=== PATIENT | female | born 1960 | race Caucasian/White ===

== ENCOUNTER 2019-10-31 01:48 | Inpatient (IN) | payer MEDICARE, SELFPAY ==
[2019-10-31] VITALS (14 sets, daily range): BP systolic 107–197; BP diastolic 57–80; PULSE 64–96; RESP 16–28; TEMP 36.6–38; O2SAT 94–98; BMI 54.8
--- NOTE | 2019-10-31 01:49 | ED_ITS ---
Entered by Jinny Canales, acting as scribe for Dorian Steven DO HPI - Altered Mental Status General: Chief Complaint: Altered Mental Status Stated Complaint: AMS Time Seen by Provider: 10/31/19 01:49 Source: EMS Mode of arrival: EMS Limitations: no limitations History of Present Illness: HPI narrative: 59 yo f came to the er by [facility] Ems for altered mental status. Onset was tonight. Ems states that she is type 2, altered mental status and had a fever at 103. Ems said that her g stick was 248. MD complaint: altered mental status Timing confirmed by: spouse Severity: moderate Associated symptoms: Reports no associated symptoms Review of Systems General: Reports: ROS unobtainable due to mental status Const: Reports: fever Eyes: Denies: change in vision ENMT: Denies: throat pain Card: Reports: edema; Denies: chest pain Resp: Reports: shortness of breath, productive cough, coughing up blood and chest congestion : Reports: difficulty urinating Neuro: Reports: weakness in extremities, difficulty walking, confusion and behavioral changes PFS ED PFSH: Medical History COPD (chronic obstructive pulmonary disease) Diabetes 1.5, managed as type 2 Reflex sympathetic dystrophy Surgical History H/O: hysterectomy History of cholecystectomy History of thyroidectomy Family History Father No problems noted. Mother Cancer Other Diabetes Social History Smoking and tobacco status: unknown if ever smoked Quit status (tobacco): considering quitting Second hand smoke exposure: Yes Alcohol intake: never History of recent travel: No Physical Exam Const: GENERAL APPEARANCE: well developed ORIENTATION/CONSCIOUSNESS: Yes oriented to person; not oriented to place and not oriented to time HENMT: COMMON NORMALS: normocephalic HEAD & SCALP: normocephalic; no scalp tenderness FACE & SINUS: normal facial exam NOSE: no nasal discharge MOUTH: tongue normal Eye: COMMON NORMALS: PERRL, EOMs intact bilaterally and conjunctivae normal EYELID: eyelids normal CONJUNCTIVA: Yes conjunctivae normal PUPIL: Yes PERRL Neck/C-Spine: COMMON NORMALS: full ROM GENERAL: No tracheal deviation Chest: COMMONS NORMALS: inspection of chest normal CHEST: No tenderness Resp: COMMON NORMALS: clear to auscultation bilaterally EFFORT & INSPECTION: No tachypneic, No respiratory distress, No retractions, No uses accessory muscles and No tracheal deviation AUSCULTATION: clear to auscultation bilaterally, no rhonchi, no wheezes and lung sounds not diminished Cardio: COMMON NORMALS: regular rate and regular rhythm RATE: regular rate RHYTHM: regular rhythm HEART SOUNDS: no murmurs PERIPHERAL PULSES: radial pulses present GI: INSPECTION: No abdominal distension AUSCULTATION: No hyperactive bowel sounds and No hypoactive bowel sounds PALPATION: No guarding and No rigid PERCUSSION: no dullness to percussion and no tympanic to percussion : COMMON NORMALS: Yes no CVA tenderness BLADDER/KIDNEY EXAM: Yes no CVA tenderness Back/Pelvis: COMMON NORMALS: no CVA tenderness Neuro: SENSORIUM/ORIENTATION: Yes oriented to person, No oriented to place and No oriented to time Psych: COMMON NORMALS: negative for mental status grossly normal Skin: COMMON NORMALS: no rashes or lesions noted GENERAL SKIN EXAM: no rashes or lesions noted Course Vital Signs: Vital signs: Vital Signs Temperature 100.4 F H 10/31/19 01:49 Pulse Rate 93 10/31/19 02:25 Respiratory Rate 22 H 10/31/19 02:25 Blood Pressure 108/57 10/31/19 04:14 Pulse Oximetry 94 10/31/19 04:14 MDM - Altered Mental Status MDM Narrative: Medical decision making narrative: 59-year-old female with significant mental status change, she is quite lethargic. She had a fever in route. Temperature is broken now. She is much more alert at this point, and has been up to the bedside commode. Her white blood cell count is 21. She has a left shift. BUN and creatinine are 27 and 1.5 respectively. Her pH on ABG is normal. Oxygen saturations are good. She has a right-sided consolidation on x- ray, likely responsible for the fever and white blood cell count. Lab Data: Labs: Lab Results 10/31/19 10/31/19 10/31/19 Range/Units 02:05 02:05 02:05 WBC 20.8 H (4.0-10.0) 10^3/ uL RBC 5.58 H (4.1-5.3) 10^6/u L Hgb 14.6 (11.5-15.3) g/dL Hct 46.4 (37.0-47.0) % MCV 83.2 (81-99) fL MCH 26.2 L (28.0-34.0) pg MCHC 31.5 (30.0-36.0) g/dL RDW 14.5 (12.1-15.1) % Plt Count 242 (130-400) 10^3/c mm MPV 10.4 (7.4-10.4) fL Neut % (Auto) 87.1 % Lymph % (Auto) 4.6 % [place] % (Auto) 7.1 % Eos % (Auto) 0.3 % Baso % (Auto) 0.4 % Neut # (Auto) 18.1 H (1.8-7.7) 10^3/u L Lymph # (Auto) 1.0 (0.8-4.8) 10^3/u L [place] # (Auto) 1.5 H (0.2-0.9) 10^3/u L Eos # (Auto) 0.1 (0.0-0.8) 10^3/u L Baso # (Auto) 0.1 (0.0-0.1) 10^3/u L Nucleated RBC % (a uto) 0 % Nucleated RBCs # 0.0 /100WBC Specimen Type Sample Site ABG pH (7.35-7.45) ABG pCO2 (35-45) mmHg ABG pO2 (80.0-100.0) mmH g ABG HCO3 (22-26) mmol/L ABG Base Excess (-2.0-2.0) mmol/ L Darrius Test Hematocrit (37-47) % O2 Delivery Device O2 Liters/Min % Choir Member ID Sodium 138 (136-145) mmol/L Potassium 3.7 (3.5-5.1) mmol/L Chloride 101 (98-107) mmol/L Carbon Dioxide 24 (22-29) mmol/L Anion Gap 16.7 (5-19) BUN 27 H (8-23) mg/dL Creatinine 1.5 H (0.5-0.9) mg/dL GFR Calculation 35.4 L (90-130) mL/min Glucose 251 H (65-115) mg/dL Lactate 2.8 H (0.5-2.2) mmol/L Calcium 11.0 H (8.5-10.5) mg/dL Total Bilirubin 0.5 (0.15-1.2) mg/dL AST 21 (0-32) U/L ALT 17 (0-33) U/L Alkaline Phosphata se 135 H (35-105) IU/L Creatine Kinase 93 (26-192) U/L Troponin T Baselin e (0-10) ng/mL Troponin T 120 Min [place] (0-10) ng/mL Delta Troponin T (0-10) ABS# Total Protein 7.3 (6.6-8.7) g/dL Albumin 4.1 (3.5-5.2) g/dL Globulin 3.2 (1.3-4.6) g/dL Influenza Type A A g (Negative) POC Influenza B Ag (Negative) 10/31/19 10/31/19 10/31/19 Range/Units 02:05 02:05 02:30 WBC (4.0-10.0) 10^3/ uL RBC (4.1-5.3) 10^6/u L Hgb (11.5-15.3) g/dL Hct (37.0-47.0) % MCV (81-99) fL MCH (28.0-34.0) pg MCHC (30.0-36.0) g/dL RDW (12.1-15.1) % Plt Count (130-400) 10^3/c mm MPV (7.4-10.4) fL Neut % (Auto) % Lymph % (Auto) % [place] % (Auto) % Eos % (Auto) % Baso % (Auto) % Neut # (Auto) (1.8-7.7) 10^3/u L Lymph # (Auto) (0.8-4.8) 10^3/u L [place] # (Auto) (0.2-0.9) 10^3/u L Eos # (Auto) (0.0-0.8) 10^3/u L Baso # (Auto) (0.0-0.1) 10^3/u L Nucleated RBC % (a uto) % Nucleated RBCs # /100WBC Specimen Type Arterial Sample Site Brachial, left ABG pH 7.35 (7.35-7.45) ABG pCO2 42.5 (35-45) mmHg ABG pO2 57.4 L (80.0-100.0) mmH g ABG HCO3 23.2 (22-26) mmol/L ABG Base Excess -2.6 L (-2.0-2.0) mmol/ L Darrius Test N/a Hematocrit 46.1 (37-47) % O2 Delivery Device Nc O2 Liters/Min 3.0 % Choir Member ID vossa Sodium (136-145) mmol/L Potassium (3.5-5.1) mmol/L Chloride (98-107) mmol/L Carbon Dioxide (22-29) mmol/L Anion Gap (5-19) BUN (8-23) mg/dL Creatinine (0.5-0.9) mg/dL GFR Calculation (90-130) mL/min Glucose (65-115) mg/dL Lactate (0.5-2.2) mmol/L Calcium (8.5-10.5) mg/dL Total Bilirubin (0.15-1.2) mg/dL AST (0-32) U/L ALT (0-33) U/L Alkaline Phosphata se (35-105) IU/L Creatine Kinase (26-192) U/L Troponin T Baselin e 41 H (0-10) ng/mL Troponin T 120 Min [place] (0-10) ng/mL Delta Troponin T (0-10) ABS# Total Protein (6.6-8.7) g/dL Albumin (3.5-5.2) g/dL Globulin (1.3-4.6) g/dL Influenza Type A A g Negative (Negative) POC Influenza B Ag Negative (Negative) 10/31/19 Range/Units 04:20 WBC (4.0-10.0) 10^3/ uL RBC (4.1-5.3) 10^6/u L Hgb (11.5-15.3) g/dL Hct (37.0-47.0) % MCV (81-99) fL MCH (28.0-34.0) pg MCHC (30.0-36.0) g/dL RDW (12.1-15.1) % Plt Count (130-400) 10^3/c mm MPV (7.4-10.4) fL Neut % (Auto) % Lymph % (Auto) % [place] % (Auto) % Eos % (Auto) % Baso % (Auto) % Neut # (Auto) (1.8-7.7) 10^3/u L Lymph # (Auto) (0.8-4.8) 10^3/u L [place] # (Auto) (0.2-0.9) 10^3/u L Eos # (Auto) (0.0-0.8) 10^3/u L Baso # (Auto) (0.0-0.1) 10^3/u L Nucleated RBC % (a uto) % Nucleated RBCs # /100WBC Specimen Type Sample Site ABG pH (7.35-7.45) ABG pCO2 (35-45) mmHg ABG pO2 (80.0-100.0) mmH g ABG HCO3 (22-26) mmol/L ABG Base Excess (-2.0-2.0) mmol/ L Darrius Test Hematocrit (37-47) % O2 Delivery Device O2 Liters/Min % Choir Member ID Sodium (136-145) mmol/L Potassium (3.5-5.1) mmol/L Chloride (98-107) mmol/L Carbon Dioxide (22-29) mmol/L Anion Gap (5-19) BUN (8-23) mg/dL Creatinine (0.5-0.9) mg/dL GFR Calculation (90-130) mL/min Glucose (65-115) mg/dL Lactate (0.5-2.2) mmol/L Calcium (8.5-10.5) mg/dL Total Bilirubin (0.15-1.2) mg/dL AST (0-32) U/L ALT (0-33) U/L Alkaline Phosphata se (35-105) IU/L Creatine Kinase (26-192) U/L Troponin T Baselin e (0-10) ng/mL Troponin T 120 Min [place] 44.86 H (0-10) ng/mL Delta Troponin T 3.86 (0-10) ABS# Total Protein (6.6-8.7) g/dL Albumin (3.5-5.2) g/dL Globulin (1.3-4.6) g/dL Influenza Type A A g (Negative) POC Influenza B Ag (Negative) Critical Care Time Critical Care Time: Critical Care Time: Yes Total Critical Care Time: 40 Attestation: This case had a high probability of a clinically significant, sudden, or life threatening deterioration of this patient's condition which required my full and direct attention, intervention and personal management. Discharge Plan Discharge Condition: Stable Prescriptions: No Action (DME) insulin syringe-needle U-100 [BD SafetyGlide Insulin Syringe] 0.3 mL 31 gauge x 5/16 syringe See Rx Instructions .ROUTE .MEDSUPPLY Qty: 10 RF: 0 bumetanide 2 mg tablet 2 mg PO ONCE RF: 0 topiramate [Topamax] 100 mg tablet 100 mg PO BID RF: 0 Relistor 150 mg tablet 150 mg PO QAM RF: 0 levothyroxine 100 mcg capsule 100 mcg PO ONCE RF: 0 hydroxyzine HCl 25 mg tablet 25 mg PO Q4H PRN (Reason: Allergic Symptoms) RF: 0 Novolin R Regular U-100 Insuln 100 unit/mL solution 60 unit SUBCUT TID Qty: 1 RF: 0 simvastatin 20 mg tablet 20 mg PO ONCE RF: 0 citalopram [Celexa] 40 mg tablet 40 mg PO ONCE RF: 0 omeprazole 40 mg capsule,delayed release(DR/EC) 40 mg PO BID RF: 0 alprazolam [Xanax] 0.25 mg tablet 0.25 mg PO Q6H PRN (Reason: Anxiety) RF: 0 montelukast [Singulair] 10 mg tablet 10 mg PO ONCE RF: 0 prochlorperazine maleate 10 mg capsule, extended release 10 mg PO BID RF: 0 tizanidine [Zanaflex] 4 mg capsule 4 mg PO Q6H PRN (Reason: Muscle Spasm) RF: 0 Tresiba FlexTouch U-200 200 unit/mL (3 mL) insulin pen 200 unit SUBCUT ONCE Qty: 9 RF: 3 albuterol sulfate [Ventolin HFA] 90 mcg/actuation HFA aerosol inhaler 2 puff INHALATION Q4H PRN (Reason: shortness of breath) Qty: 18 RF: 6 aspirin 81 mg Tablet,Delayed Release (Dr/Ec) 81 mg PO BID RF: 0 Dulcolax (bisacodyl) 5 mg Tablet,Delayed Release (Dr/Ec) 5 mg PO DAILY RF: 0 methadone 10 mg tablet 15 mg PO BID RF: 0 Referrals: Donald Bolaños MD [Primary Care Provider] - Coding Level of Care Code ED Log Sorter for Chg Fwd Exam Comprehensive The documentation recorded by the Parker guzmán Stephanie Lyn, accurately reflects the service I personally performed and the decisions made by Maurizio cisse Jeremy John, DO Oct 31, 2019 01:48
--- NOTE | 2019-10-31 01:55 | XR_ITS ---
WS: [id number] XR chest 1V portable [id number] REASON FOR EXAM: ams FINDINGS: The left lung base shows a pneumonia. The heart is borderline enlarged. The remaining lung preciado are well aerated no active infiltrates. There is granulomas throughout both lung preciado. XR/XR chest 1V portable [id number] IMPRESSION: Infiltrate left lung base
--- NOTE | 2019-10-31 01:55 | CTR_ITS ---
PROCEDURE INFORMATION: Exam: CT Head Without Contrast Exam date and time: 10/31/2019 1:58 AM Age: 59 years old Clinical indication: Altered mental status/memory loss; Confusion or disorientation; Additional info: AMS TECHNIQUE: Imaging protocol: Computed tomography of the head without contrast. Total DLP: 1803.07 mGy-cm Radiation optimization: All CT scans at this facility use at least one of these dose optimization techniques: automated exposure control; mA and/or kV adjustment per patient size (includes targeted exams where dose is matched to clinical indication); or iterative reconstruction. COMPARISON: CT head wo con* [id number] 05/10/2019 10:14 PM FINDINGS: Brain: Normal. No hemorrhage. Unremarkable white matter. No mass effect. Ventricles: Normal. No ventriculomegaly. Bones/joints: Unremarkable. No acute fracture. Sinuses: There is mild mucosal thickening seen within the ethmoidal sinuses bilaterally. Mild mucosal thickening is seen within the left maxillary sinus. Mastoid air cells: Visualized mastoid air cells are well aerated. Soft tissues: Unremarkable. CT/CT head wo con* [id number] IMPRESSION: There are no acute intracranial findings. Radiation Dose CTDIVOL = (mGy): DLP = 1803.07 (mGy-cm)
--- NOTE | 2019-10-31 01:57 | ECG_ITS ---
Measurements Intervals [place] Rate: 77 P: 16 [place]: 153 QRS: -10 QRSD: 97 T: 58 QT: 399 QTc: 454 SINUS RHYTHM POSSIBLE ANTERIOR MYOCARDIAL INFARCTION , PROBABLY OLD [30 ms Q WAVE IN V3/V4, OR R < 0.2 mV IN V4] Compared to ECG 05/11/2019 01:15:17 Myocardial infarct finding now present T-wave abnormality no longer present Electronically Signed On 10-31-2019 19:04:22 DEALERSHIP GENERAL MANAGER by Deshawn Parker M.D. [email or web address]
[2019-10-31 02:20] LABS: Basophils # 0.1 10^3/uL (0.0-0.1); Basophils % 0.4 %; Eosinophils # 0.1 10^3/uL (0.0-0.8); Eosinophils % 0.3 %; Hematocrit 46.4 % (37.0-47.0); Hemoglobin 14.6 g/dL (11.5-15.3); Lymphocytes % 4.6 %; Mean Corpuscular HGB Conc 31.5 g/dL (30.0-36.0); Mean Corpuscular Hemoglobin 26.2 pg (28.0-34.0); Mean Corpuscular Volume 83.2 fL (81-99); Mean Platelet Volume 10.4 fL (7.4-10.4); Monocytes # 1.5 10^3/uL (0.2-0.9); Monocytes % 7.1 %; Neutrophils # 18.1 10^3/uL (1.8-7.7); Neutrophils % 87.1 %; Nucleated Red Blood Cells % 0 %; Platelet Count 242 10^3/cmm (130-400); Red Blood Count 5.58 10^6/uL (4.1-5.3); Red Cell Distribution Width 14.5 % (12.1-15.1); White Blood Count 20.8 10^3/uL (4.0-10.0)
[2019-10-31 02:34] LABS: Lactate (Lactic Acid level) 2.8 mmol/L (0.5-2.2)
[2019-10-31 02:35] LABS: Alanine Aminotransferase 17 U/L (0-33); Albumin Level 4.1 g/dL (3.5-5.2); Alkaline Phosphatase 135 IU/L (35-105); Anion Gap 16.7 (5-19); Aspartate Amino Transferase 21 U/L (0-32); Blood Urea Nitrogen 27 mg/dL (8-23); Carbon Dioxide 24 mmol/L (22-29); Chloride 101 mmol/L (98-107); Creatine Phosphokinase 93 U/L (26-192); Globulin 3.2 g/dL (1.3-4.6); Glomerular Filtration Rate 35.4 mL/min (90-130); Glucose 251 mg/dL (65-115); Potassium 3.7 mmol/L (3.5-5.1); Sodium 138 mmol/L (136-145); Total Bilirubin 0.5 mg/dL (0.15-1.2); Total Protein 7.3 g/dL (6.6-8.7)
[2019-10-31 02:37] LABS: Troponin(5th) Baseline 41 ng/mL (0-10)
[2019-10-31 02:42] LABS: ABG PCO2 42.5 mmHg (35-45); ABG PH Result 7.35 (7.35-7.45); Arterial Blood Gas Hematocrit 46.1 % (37-47); Base Excess ABG -2.6 mmol/L (-2.0-2.0); Blood Gas Sample Site Brachial, left; Blood Gas Sample Type Arterial; HCO3 ABG 23.2 mmol/L (22-26); Oxygen Device NC; PO2 ABG 57.4 mmHg (80.0-100.0)
[2019-10-31 02:45] LABS: Influenza A by IFA Negative (Negative); Influenza B by IFA Negative (Negative)
[2019-10-31] MEDS: ondansetron 2 mg/ML SDV 2 mL 4 MG IVP (02:59)
--- NOTE | 2019-10-31 03:57 | ECG_ITS ---
Measurements Intervals [place] Rate: 90 P: 35 [place]: 190 QRS: -8 QRSD: 108 T: 55 QT: 323 QTc: 396 SINUS RHYTHM POSSIBLE ANTERIOR MYOCARDIAL INFARCTION , PROBABLY OLD [30 ms Q WAVE IN V3/V4, OR R < 0.2 mV IN V4] Compared to ECG 05/11/2019 01:15:17 Myocardial infarct finding now present T-wave abnormality no longer present Electronically Signed On 10-31-2019 19:06:05 SHIPPING PACKER by Deshawn Parker M.D. [email or web address]
--- NOTE | 2019-10-31 04:13 | PC.NURSE ---
EKG done at 0410 and shown to ER doctor
--- NOTE | 2019-10-31 04:17 | PM.HP ---
Providers/Chief Complaint Primary Care Provider: Donald Bolaños MD Chief Complaint: AMS History of Present Illness Marion Stuart is a 59 year old female oxygen dependent COPD 2 L at home, CHF, venous stasis dermatitis, peripheral vascular disease, morbid obesity, diabetes, dyslipidemia came in with chief complaint of shortness of breath. Patient is stating that for last couple of days she has been experiencing extreme muscle fatigue, myalgias, expected fever 102, she started experiencing shortness of breath despite using her oxygen. She is smoking 1 pack/day, she is denying any recent sick contacts, she lives home, her does not have similar complaints. She has orthopnea positive, PND, she is wheelchair-bound, previous cardiac cath was normal without any coronary disease. Diagnostics in ER revealed leukocytosis, fever, hypoxia, right middle lobe pneumonia. Her called EMS when she had confusion, she has more drowsiness and was not able to open her eyes. When I interviewed her she was hemodynamically stable, saturating well on 3 L nasal cannula, was able to give me all the details. She was awake alert oriented times Review of Systems Const: Reports: fever, chills, body aches, fatigue and malaise; Denies: change in appetite or change in weight Eyes: Denies: change in vision ENMT: Denies: throat pain Card: Reports: swelling of feet/ankles; Denies: chest pain Resp: Reports: shortness of breath and non-productive cough GI: Denies: abdominal pain, nausea or vomiting : Denies: flank pain or difficulty urinating Musc: Denies: neck pain or back pain Skin/Breast: Reports: rash, chronic lesion, dry skin, stretch morales and nail changes Neuro: Denies: headache Psych: Reports: sleeping more Endo: Denies: excessive urination Justin/Lymph: Denies: easy bruising All/Imm: Denies: hives Medications/Allergies Home Medications Medication Instructions Recorded Confirmed Last Taken Type aspirin 81 mg PO BID 10/31/19 10/31/19 Unknown History bisacodyl [Dulcolax (bisacodyl)] 5 mg PO DAILY 10/31/19 10/31/19 Unknown History methadone 15 mg PO BID 10/31/19 10/31/19 Unknown History Allergies Allergy/AdvReac Type Severity Reaction Status Date / Time doxycycline Allergy Mild unknown Verified 10/08/19 14:20 adhesive tape Allergy RASH Verified 10/08/19 14:20 erythromycin base Allergy Unknown Verified 10/08/19 14:20 furosemide [From Lasix] Allergy LASIX Verified 10/08/19 14:20 gabapentin Allergy UNKNOWN Verified 10/08/19 14:20 hydrochlorothiazide Allergy Unknown Verified 10/08/19 14:20 insulin glargine Allergy UNKNOWN Verified 10/08/19 14:20 [From Lantus U-100 Insulin] Iodinated Contrast Media Allergy Unknown Verified 10/08/19 14:20 lamotrigine [From Lamictal] Allergy Unknown Verified 10/08/19 14:20 nortriptyline Allergy Unknown Verified 10/08/19 14:20 oxcarbazepine Allergy UNKNOWN Verified 10/08/19 14:20 Penicillins Allergy Unknown Verified 10/08/19 14:20 polyethylene glycol Allergy Unknown Verified 09/02/19 16:07 [From Golytely] polyethylene glycol 3350 Allergy Unknown Verified 09/02/19 16:07 [From Golytely] potassium chloride Allergy Unknown Verified 09/02/19 16:07 [From Golytely] sodium [From Golytely] Allergy Unknown Verified 09/02/19 16:07 sodium bicarbonate Allergy Unknown Verified 09/02/19 16:07 [From Golytely] sodium chloride Allergy Unknown Verified 09/02/19 16:07 [From Golytely] sodium sulfate Allergy Unknown Verified 09/02/19 16:07 [From Golytely] PFSH Acute PFSH: Medical History (Updated 10/31/19 @ 05:05 by Deshawn Lawson MD) Cataract COPD (chronic obstructive pulmonary disease) Diabetes 1.5, managed as type 2 Diabetic neuropathy Glaucoma Morbid obesity Neuropathy Peripheral vascular disease Reflex sympathetic dystrophy Smoker Venous stasis dermatitis Surgical History H/O: hysterectomy History of cholecystectomy History of thyroidectomy Family History Father No problems noted. Mother Cancer Other Diabetes Social History (Updated 10/31/19 @ 04:59 by Deshawn Lawson MD) Smoking and tobacco status: current every day smoker cigarettes Packs smoked per day: 1 Years cigarettes smoked: 45 Quit status (tobacco): considering quitting Second hand smoke exposure: Yes Alcohol intake: never History of recent travel: No Vitals/I&O/Wt Last Vital Signs Temp 100.4 F H 10/31/19 01:49 Pulse 93 10/31/19 02:25 Resp 22 H 10/31/19 02:25 BP 184/80 10/31/19 02:25 Pulse Ox 96 10/31/19 01:49 Weight last 48 hrs Weight 154.221 kg Physical Exam Narrative: EXAM NARRATIVE: Morbidly obese female sitting comfortable in her bed without any active respiratory distress, saturating well on 3 to nasal cannula Cushingoid appearance Morbid obesity Bilateral breath sounds without adventitious sounds or wheezing however bronchial breathing right lung base Abdomen soft, distended, with obesity, not able to palpate organomegaly Abdominal pannus with moisture without any cellulitis Lower extremity venous stasis dermatitis, 3+ pitting edema bilaterally Dry skin Onychomycosis, unkempt appearance, poor hygiene Appropriate mood and affect Neurologically nonfocal exam she is awake alert oriented x3 Mild hyperemic conjunctivo- Data : 10/31/19 02:05 10/31/19 02:05 Micro: Microbiology 10/31/19 02:08 Blood Culture - Preliminary Blood SPECIMEN COLLECTED 10/31/19 02:05 Blood Culture - Preliminary Blood SPECIMEN COLLECTED A&P Assessment and plan (1) COPD (chronic obstructive pulmonary disease): Status: Acute Qualifiers: COPD type: emphysema Emphysema type: panlobular Qualified Code(s): J43.1 - Panlobular emphysema Code(s): J44.9 - Chronic obstructive pulmonary disease, unspecified (2) Hypoxia: Status: Acute Code(s): R09.02 - Hypoxemia (3) Community acquired pneumonia: Status: Acute Code(s): J18.9 - Pneumonia, unspecified organism (4) Sepsis: Status: Acute Code(s): A41.9 - Sepsis, unspecified organism Additional A&P Information Acute on chronic hypoxic respiratory failure secondary to community-acquired pneumonia Most likely bacterial right middle lobe pneumonia we will treat her with ceftriaxone and azithromycin Urine antigens Blood culture, sputum culture Patient is currently smoking, spent good amount of time in counseling, patient is not ready to quit Currently asking for nicotine patch Sepsis secondary to pneumonia: Judicious use of fluids, She looks fluid overloaded, will need diuretics, hemodynamically currently stable, antibiotics, Diabetic neuropathy: She is scheduled to see Dr. Rodgers on Saturday Diabetic diet, because of her regular insulin usage 3 times a day I would use low-dose insulin sliding scale ^ Glaucoma and cataract: She has scheduled ocular surgeries on Saturday Chronic kidney disease: Creatinine at baseline, Anticipating improvement with diuresis Venous stasis dermatitis: No active signs of gangrene or ulcer Chronic opiate dependence: Continue methadone currently she is on 10 mg twice a day Denies constipation Full code DVT prophylaxis: Heparin Attestations Medical Necessity Statement*: Anticipating her stay to cross more than 2 midnights because of sepsis and community-acquired pneumonia, Time Spent in Patient Care: 40 Coding Level of Care Code Acute Process Treater for [facility] Fwd Diagnoses COPD (chronic obstructive pulmonary disease) J43.1 COPD type: emphysema Emphysema type: panlobular Hypoxia R09.02 Community acquired pneumonia J18.9 Sepsis A41.9
[2019-10-31 04:39] LABS: Troponin 5 2HR 44.86 ng/mL (0-10); Troponin 5 2HR Delta 3.86 ABS# (0-10)
[2019-10-31] MEDS: levofloxacin-dextrose 5 % 750 MG/150 ML PREMIX 150 MG IV (05:01)
[2019-10-31] MEDS: sodium chloride 0.9% 1,000 ML 999 ML IV (05:01)
--- NOTE | 2019-10-31 05:02 | PC.NURSE ---
UA collected and sent to lab
[2019-10-31 05:11] LABS: Add Urine Culture? Yes; Add Urine Microscopic? YES; Bacteria Urine 4+; Bilirubin Urine Neg (NEGATIVE); Blood Urine Neg (Negative); Glucose Urine UA Norm (Normal); Ketones Urine Negative (Negative); Leukocyte Esterase Urine Negative (Negative); Nitrate Urine Positive (Negative); Protein Urine Neg (Negative); RBC Urine 0-4 /hpf (0-2); Squamous Epithelial Cell Urine 0-4 (0-5); Urine Appearance Cloudy (CLEAR); Urine Color Yellow (Yellow); Urobilinogen Urine Norm (Negative); WBC Urine 25-40 /hpf (0-5); pH Urine 7 (5-7)
--- NOTE | 2019-10-31 05:20 | PC.NURSE ---
Report called to Jinny OWENS, patient to be transferred to floor 252-2.
--- NOTE | 2019-10-31 06:00 | PC.NURSE ---
Patient taken to floor in stable condition.
[2019-10-31] MEDS: nicotine 21 mg Patch 1 PATCH TRANSDERMA (06:40)
[2019-10-31 06:47] LABS: Glucose Point of Care 206 mg/dL (70-110)
[2019-10-31] MEDS: atorvastatin 40 mg Tablet 20 MG PO (08:26)
[2019-10-31] MEDS: aspirin 81 mg EC Tablet PO ×2 (08:26→20:58)
[2019-10-31] MEDS: azithromycin 250 mg Tablet PO (08:26)
[2019-10-31] MEDS: bumetanide 1 mg Tablet 2 MG PO (08:26)
[2019-10-31] MEDS: levothyroxine 100 mcg Tablet PO (08:26)
[2019-10-31] MEDS: pantoprazole DR 40 mg Tablet PO ×2 (08:27→17:16)
[2019-10-31] MEDS: methadone 10 mg Tablet PO ×2 (08:27→17:16)
[2019-10-31] MEDS: topiramate 100 mg Tablet 50 MG PO ×2 (08:28→17:16)
[2019-10-31] MEDS: cefTRIAXone 1,000 MG in sodium chloride 0.9% (plus) 50 ML 100 MG IV (08:29)
[2019-10-31] MEDS: heparin 5,000 unit/mL INJ 1 mL 5000 UNIT SUBCUT ×2 (08:29→15:46)
[2019-10-31 08:46] LABS: Troponin 5 6HR 40.77 ng/mL (0-10); Troponin 5 6HR Delta -0.23 ng/L (0-12)
[2019-10-31] MEDS: ipratropium-albuterol 3 mL Neb INHALATION ×2 (09:09→14:54)
[2019-10-31 11:29] LABS: Glucose Point of Care 235 mg/dL (70-110)
[2019-10-31] MEDS: ketorolac 0.5% Op 5 mL Btl 1 DROP EYE-BOTH (12:52)
[2019-10-31] MEDS: prednisoLONE 1% Op Susp 5 mL Btl 1 DROP EYE-BOTH ×3 (12:52→20:58)
--- NOTE | 2019-10-31 13:09 | PC.CHAP ---
Pastoral Care Encounter/Spiritual Assessment Type of Contact [] Declined athletic field custodian visit [] Patient/Family/Request visit [] Outpatient visit [] Follow-up visit [] Physician referral [] Code/Alert [X] Routine visit [] Staff referral [] Actively dying [] Patient sleeping [] Family support [] [] Out of room [] Palliative care [] [] Receiving care in room [] Pre-surgical visit [] Trauma [] Long length of stay [] ICU visit [] Other: Relational/Emotional Strength [] Patient feels connected with others/family/visitors/staff [] Distress [] Loneliness/isolation [] Abandonment Spirituality of Patient [] Person of Martine [] Attends Spiritism of their Martine [] Believes in Prayer [] Reads Bible or Druze materials [] There are Spiritual issues to be addressed Form Builder Helper Interventions [] Prayer [] Active listening [] Non-anxious presence [] Spiritual/emotional support [] Crisis/trauma care [] Spiritual counseling [] Bereavement support [] Provided bereavement packet [] Provided Bible/devotional materials [] Provided toy/stuffed animal, coloring book to patient or family member [] Provided Communion [] Anointing/[place] [] Salvation [] Completed spiritual assessment [] Other: Impact on Illness or Injury [] Angry [] Fearful [] Anxious [] Often cries [] Exhaustion [] Unable to work [] Unable to attend hindu [] Unable to walk/stand [] Unable to read [] Unable to drive [] Unable to eat/drink [] Unable to sleep [] Unable to be with family [] Patient intubated [] Other: Summary Time spent with patient
--- NOTE | 2019-10-31 15:33 | CTR_ITS ---
PROCEDURE INFORMATION: Exam: CT Lumbar Spine Without Contrast Exam date and time: 10/31/2019 5:27 PM Age: 59 years old Clinical indication: Low back pain; Additional info: Suspet vertebral fracture TECHNIQUE: Imaging protocol: Computed tomography images of the lumbar spine without contrast. Total DLP: 2106.33 mGy-cm Radiation optimization: All CT scans at this facility use at least one of these dose optimization techniques: automated exposure control; mA and/or kV adjustment per patient size (includes targeted exams where dose is matched to clinical indication); or iterative reconstruction. COMPARISON: [place] [id number] 08/20/2016 5:13 PM FINDINGS: Vertebrae: No visible fracture, subluxation, or dislocation. No visible traumatic spondylolysis or spondylolisthesis. Mild levoscoliosis. Discs/Spinal canal/Neural foramina: Degenerative disease and degenerative disc disease with vacuum disc phenomenon and moderate disc space height loss L3/L4. Moderate central canal stenosis L3/L4 primarily secondary to facet arthrosis and ligamentum flavum hypertrophy aggravated by a mild posterior annular disc bulge. Advanced degenerative disc disease with disc space height loss and vacuum disc phenomenon and associated spondylosis deformans T12/L1. Moderate facet arthrosis L4/L5 and L5/S1. Mild left paramedian focal annular disc bulge L2/L3 which may efface the exiting left L2 nerve root. Vasculature: The abdominal aorta, where visualized, is nonaneurysmal. Moderate arterial sclerotic disease. Soft tissues: Unremarkable. Other findings: Heavy body habitus. This increases quantum mottle artifact. CT/CT lumbar spine wo con* [id number] IMPRESSION: 1. No visible fracture, subluxation, or dislocation. 2. Moderate central canal stenosis primarily secondary to facet arthrosis and ligamentum flavum hypertrophy L3/L4. 3. Mild left paramedian focal annular disc bulge L2/L3 which may efface the exiting left L2 nerve root. 4. Facet arthrosis. 5. Degenerative disc disease with vacuum disc phenomenon at T12/L1 and L3/L4. 6. Mild levoscoliosis. Radiation Dose CTDIVOL = (mGy): DLP = 2106.33 (mGy-cm)
[2019-10-31] MEDS: tizanidine 4 mg Tablet PO (15:46)
[2019-10-31 16:55] LABS: Glucose Point of Care 189 mg/dL (70-110)
--- NOTE | 2019-10-31 18:38 | PM.PN ---
Subjective Subjective: Interval history: Overnight labs and H&P reviewed. Does not complain any complaints of chest pain or dyspnea. She does report that this morning she developed bilateral lower extremity paresthesias and has had heaviness in bilateral legs which is made it difficult to move her legs. She endorses a history of multiple level degeneration in her cervical and lumbar spine. No bowel or urinary incontinence. Medications: Reviewed: Yes Vitals/I&O/Wt Last Vital Signs Temp 98.8 F 10/31/19 15:13 Pulse 68 10/31/19 15:13 Resp 16 10/31/19 15:13 BP 107/71 10/31/19 15:13 Pulse Ox 98 10/31/19 15:13 10/31/19 10/31/19 10/31/19 06:59 14:59 22:59 Intake Total 360 / 360 240 / 600 Output Total 500 / 500 Balance -140 / -140 240 / 100 Weight last 48 hrs Weight 154.221 kg Physical Exam Narrative: EXAM NARRATIVE: GEN: Awake, alert and oriented, no acute distress CVS: S1S2 N RS: CTA B/L Abd: Soft, nt/nd , bs+ BOTANY TECHNICIAN: no focal motor neuro deficits. Lower extremity strength 5 out of 5. Patient complains of paresthesias worsened with minimal movement. Data : 10/31/19 02:05 10/31/19 02:05 Micro: Microbiology 10/31/19 02:08 Blood Culture - Preliminary Blood SPECIMEN COLLECTED 10/31/19 02:05 Blood Culture - Preliminary Blood SPECIMEN COLLECTED A&P Assessment and plan (1) Sepsis: Status: Acute Code(s): A41.9 - Sepsis, unspecified organism (2) Community acquired pneumonia: Status: Acute Code(s): J18.9 - Pneumonia, unspecified organism (3) Hypoxia: Status: Acute Code(s): R09.02 - Hypoxemia (4) Reflex sympathetic dystrophy: Status: Acute Code(s): G90.50 - Complex regional pain syndrome I, unspecified (5) Diabetes 1.5, managed as type 2: Status: Acute Code(s): E13.9 - Other specified diabetes mellitus without complications (6) COPD (chronic obstructive pulmonary disease): Status: Acute Qualifiers: COPD type: emphysema Emphysema type: panlobular Qualified Code(s): J43.1 - Panlobular emphysema Code(s): J44.9 - Chronic obstructive pulmonary disease, unspecified Additional A&P Information Acute on chronic hypoxic respiratory failure secondary to community-acquired pneumonia Continue ceftriaxone and azithromycin Pending bacterial antigen and Legionella antigen. Sepsis secondary to pneumonia Diabetic neuropathy: She is scheduled to see Dr. Rodgers on Saturday Diabetic diet, patient requesting to use her home Tresiba which has been initiated. Rest continue sliding scale insulin. Of note she uses regular insulin Tresiba at home. Glaucoma and cataract: She has scheduled ocular surgeries on Saturday Chronic kidney disease: Creatinine at baseline, Anticipating improvement with diuresis Venous stasis dermatitis: No active signs of gangrene or ulcer Chronic opiate dependence: Continue methadone currently she is on 10 mg twice a day Denies constipation Full code DVT prophylaxis: Heparin Attestations Medical Necessity Statement*: Inpatient management for community-acquired pneumonia, need for IV antibiotics Coding Level of Care Code Acute Burning Machine Operator for [facility] Fwd Diagnoses Sepsis A41.9 Community acquired pneumonia J18.9 Hypoxia R09.02 Reflex sympathetic dystrophy G90.50 Diabetes 1.5, managed as type 2 E13.9 COPD (chronic obstructive pulmonary disease) J43.1 COPD type: emphysema Emphysema type: panlobular
[2019-10-31 21:15] LABS: Glucose Point of Care 133 mg/dL (70-110)
[2019-10-31 23:45] LABS: Glucose Point of Care 98 mg/dL (70-110)
[2019-11-01] VITALS (8 sets, daily range): BP systolic 126–156; BP diastolic 66–84; PULSE 72–93; RESP 18–20; TEMP 36.8–37.3; O2SAT 86–97
[2019-11-01] MEDS: heparin 5,000 unit/mL INJ 1 mL 5000 UNIT SUBCUT ×2 (00:59→08:30)
[2019-11-01 05:56] LABS: Basophils % 0.3 %; Eosinophils # 0.2 10^3/uL (0.0-0.8); Eosinophils % 1.8 %; Hematocrit 40.9 % (37.0-47.0); Hemoglobin 12.6 g/dL (11.5-15.3); Lymphocytes # 1.4 10^3/uL (0.8-4.8); Lymphocytes % 10.5 %; Mean Corpuscular HGB Conc 30.8 g/dL (30.0-36.0); Mean Corpuscular Volume 84.3 fL (81-99); Mean Platelet Volume 10.7 fL (7.4-10.4); Monocytes % 7.6 %; Neutrophils # 10.6 10^3/uL (1.8-7.7); Neutrophils % 79.4 %; Nucleated Red Blood Cells % 0 %; Platelet Count 216 10^3/cmm (130-400); Red Blood Count 4.85 10^6/uL (4.1-5.3); Red Cell Distribution Width 14.9 % (12.1-15.1); White Blood Count 13.3 10^3/uL (4.0-10.0)
[2019-11-01 06:13] LABS: Alanine Aminotransferase 16 U/L (0-33); Albumin Level 3.7 g/dL (3.5-5.2); Alkaline Phosphatase 96 IU/L (35-105); Anion Gap 14.6 (5-19); Aspartate Amino Transferase 17 U/L (0-32); Blood Urea Nitrogen 27 mg/dL (8-23); Calcium 10.5 mg/dL (8.5-10.5); Carbon Dioxide 27 mmol/L (22-29); Chloride 99 mmol/L (98-107); Glomerular Filtration Rate 28.7 mL/min (90-130); Glucose 156 mg/dL (65-115); Potassium 3.6 mmol/L (3.5-5.1); Sodium 137 mmol/L (136-145); Total Bilirubin 0.4 mg/dL (0.15-1.2); Total Protein 6.7 g/dL (6.6-8.7)
[2019-11-01 06:36] LABS: Glucose Point of Care 149 mg/dL (70-110)
[2019-11-01] MEDS: bumetanide 1 mg Tablet 2 MG PO (08:30)
[2019-11-01] MEDS: levothyroxine 100 mcg Tablet PO (08:30)
[2019-11-01] MEDS: citalopram 20 mg Tablet 40 MG PO (08:30)
[2019-11-01] MEDS: bisacodyl 5 mg Tablet PO (08:30)
[2019-11-01] MEDS: azithromycin 250 mg Tablet PO (08:30)
[2019-11-01] MEDS: methadone 10 mg Tablet PO (08:30)
[2019-11-01] MEDS: pantoprazole DR 40 mg Tablet PO (08:30)
[2019-11-01] MEDS: aspirin 81 mg EC Tablet PO (08:30)
[2019-11-01] MEDS: topiramate 100 mg Tablet 50 MG PO (08:31)
[2019-11-01] MEDS: atorvastatin 40 mg Tablet 20 MG PO (08:31)
[2019-11-01] MEDS: cefTRIAXone 1,000 MG in sodium chloride 0.9% (plus) 50 ML 100 MG IV (08:32)
[2019-11-01] MEDS: prednisoLONE 1% Op Susp 5 mL Btl 1 DROP EYE-BOTH ×2 (08:36→12:09)
[2019-11-01] MEDS: ipratropium-albuterol 3 mL Neb INHALATION (09:43)
[2019-11-01 11:48] LABS: Glucose Point of Care 208 mg/dL (70-110)
--- NOTE | 2019-11-01 12:04 | PC.CHAP ---
Pastoral Care Encounter/Spiritual Assessment Type of Contact [] Declined signals intelligence analysis manager visit [] Patient/Family/Request visit [] Outpatient visit [] Follow-up visit [] Physician referral [] Code/Alert [] Routine visit [] Staff referral [] Actively dying [] Patient sleeping [] Family support [] [] Out of room [] Palliative care [] [] Receiving care in room [] Pre-surgical visit [] Trauma [] Long length of stay [] ICU visit [] Other: Relational/Emotional Strength [x] Patient feels connected with others/family/visitors/staff [] Distress [] Loneliness/isolation [] Abandonment Spirituality of Patient [x] Person of Martine [x] Attends Yazidi of their Martine [x] Believes in Prayer [] Reads Bible or Jew materials [] There are Spiritual issues to be addressed Mussel Opener Interventions [x] Prayer [x] Active listening [x] Non-anxious presence [x] Spiritual/emotional support [] Crisis/trauma care [] Spiritual counseling [] Bereavement support [] Provided bereavement packet [] Provided Bible/devotional materials [] Provided toy/stuffed animal, coloring book to patient or family member [] Provided Communion [] Anointing/[place] [] Salvation [x] Completed spiritual assessment [] Other: Impact on Illness or Injury [] Angry [] Fearful [] Anxious [] Often cries [] Exhaustion [] Unable to work [] Unable to attend judaism [] Unable to walk/stand [] Unable to read [] Unable to drive [] Unable to eat/drink [] Unable to sleep [] Unable to be with family [] Patient intubated [] Other: Summary Chaplains prayed with patient. Time spent with patient 15 minutes.
--- NOTE | 2019-11-01 13:50 | P.DS_ITS ---
Discharge Providers Date of Admission: 10/31/19 04:14 Date of Discharge: November 01, 2019 Attending Provider at Admission: Deshawn Lawson MD Attending Provider at Discharge: Qing Muhammad MD Primary Care Provider: Donald Bolaños MD Diagnoses at Discharge Discharge Diagnosis (1) Sepsis: Status: Acute (2) Community acquired pneumonia: Status: Acute (3) Hypoxia: Status: Acute (4) Reflex sympathetic dystrophy: Status: Acute (5) Diabetes 1.5, managed as type 2: Status: Acute (6) COPD (chronic obstructive pulmonary disease): Status: Acute Qualifiers: COPD type: emphysema Emphysema type: panlobular Qualified Code(s): J43.1 - Panlobular emphysema Reason for Visit Reason for Visit: Reason For Visit: AMS Hospital Course Discharge Summary: Marion Stuart is a 59 year old female oxygen dependent COPD 2 L at home, CHF, venous stasis dermatitis, peripheral vascular disease, morbid obesity, diabetes, dyslipidemia came in with chief complaint of shortness of breath. Patient is stating that for last couple of days she has been experiencing extreme muscle fatigue, myalgias, expected fever 102, she started experiencing shortness of breath despite using her oxygen. Diagnostics in ER revealed leukocytosis, fever, hypoxia, right middle lobe pneumonia. Reportedly patient also had altered mental status at home, however this had resolved by the time of hospital admission. Patient was treated with antibiotics namely ceftriaxone and azithromycin. She improved with leukocytosis trending down from 20-13. He is currently requiring 3 L/min oxygen which is up from her baseline of 2 L/min likely as a result of the pneumonia. CT of the lumbar spine was done as patient reported worsening paresthesias over her lower extremities and a background history of sympathetic reflex dystrophy. The above CT showed known disc and lumbar degenerative disease without any signs of cord compression. No vertebral fractures were noted. On the day of discharge patient feels well and is keen to return home. Her fever has been resolved for >24h . Physical Exam Narrative: EXAM NARRATIVE: GEN: Awake, alert and oriented, no acute distress CVS: S1S2 N RS: CTA B/L Abd: Soft, nt/nd , bs+ ENVIRONMENTAL COMPLIANCE SPECIALIST: no focal neuro deficits Discharge Data Data Completed and Pending: Completed Studies During Hospitalization Category Date Time Status CT head wo con* [id number] Urgent Cat Scan 10/31/19 01:[address] lumbar spine w o con* [id number] Routi ne Cat Scan 10/31/19 15:33 Completed XR chest 1V pita ble [id number] Urgent Exams 10/31/19 01:55 [place] [id number] Routin e Ultrasound 11/01/19 18:43 Completed Pending at discharge Category Date Time Status Blood Culture Sta t Lab 10/31/19 02:08 Results Sputum Culture an d Gram Stain Stat Lab 10/31/19 01:57 Uncollected Urine Culture Sta t Lab 10/31/19 05:02 Results Labs from last 24 hours 11/01/19 11/01/19 11/01/19 11:23 06:30 05:10 WBC RBC Hgb Hct MCV MCH MCHC RDW Plt Count MPV Neut % (Auto) Lymph % (Auto) [place] % (Auto) Eos % (Auto) Baso % (Auto) Neut # (Auto) Lymph # (Auto) [place] # (Auto) Eos # (Auto) Baso # (Auto) Nucleated RBC % (a uto) Nucleated RBCs # Sodium 137 Potassium 3.6 Chloride 99 Carbon Dioxide 27 Anion Gap 14.6 BUN 27 H Creatinine 1.8 H GFR Calculation 28.7 L Glucose 156 H POC Glucose 208 149 Calcium 10.5 Total Bilirubin 0.4 AST 17 ALT 16 Alkaline Phosphata se 96 Total Protein 6.7 Albumin 3.7 Globulin 3.0 11/01/19 10/31/19 10/31/19 05:10 23:42 21:04 WBC 13.3 H RBC 4.85 Hgb 12.6 Hct 40.9 MCV 84.3 MCH 26.0 L MCHC 30.8 RDW 14.9 Plt Count 216 MPV 10.7 H Neut % (Auto) 79.4 Lymph % (Auto) 10.5 [place] % (Auto) 7.6 Eos % (Auto) 1.8 Baso % (Auto) 0.3 Neut # (Auto) 10.6 H Lymph # (Auto) 1.4 [place] # (Auto) 1.0 H Eos # (Auto) 0.2 Baso # (Auto) 0.0 Nucleated RBC % (a uto) 0 Nucleated RBCs # 0.0 Sodium Potassium Chloride Carbon Dioxide Anion Gap BUN Creatinine GFR Calculation Glucose POC Glucose 98 133 Calcium Total Bilirubin AST ALT Alkaline Phosphata se Total Protein Albumin Globulin 03/07/20 16:50 WBC RBC Hgb Hct MCV MCH MCHC RDW Plt Count MPV Neut % (Auto) Lymph % (Auto) [place] % (Auto) Eos % (Auto) Baso % (Auto) Neut # (Auto) Lymph # (Auto) [place] # (Auto) Eos # (Auto) Baso # (Auto) Nucleated RBC % (a uto) Nucleated RBCs # Sodium Potassium Chloride Carbon Dioxide Anion Gap BUN Creatinine GFR Calculation Glucose POC Glucose 189 Calcium Total Bilirubin AST ALT Alkaline Phosphata se Total Protein Albumin Globulin Vitals: Last Vital Signs Temp 99.0 F 11/01/19 11:26 Pulse 93 11/01/19 11:26 Resp 20 H 11/01/19 11:26 BP 147/80 11/01/19 11:26 Pulse Ox 86 L 11/01/19 13:34 Discharge Plan Discharge Patient Disposition: Home, Self-Care Condition: Stable Prescriptions: New levofloxacin 750 mg tablet 750 mg PO DAILY 3 Days RF: 0 Continued (DME) insulin syringe-needle U-100 [BD SafetyGlide Insulin Syringe] 0.3 mL 31 gauge x 5/16 syringe See Rx Instructions .ROUTE .MEDSUPPLY Qty: 10 RF: 0 bumetanide 2 mg tablet 2 mg PO DAILY RF: 0 topiramate [Topamax] 100 mg tablet 100 mg PO BID RF: 0 Relistor 150 mg tablet 150 mg PO QAM RF: 0 levothyroxine 100 mcg capsule 100 mcg PO DAILY RF: 0 hydroxyzine HCl 25 mg tablet 25 mg PO Q4H PRN (Reason: Allergic Symptoms) RF: 0 Novolin R Regular U-100 Insuln 100 unit/mL solution 60 unit SUBCUT TID Qty: 1 RF: 0 simvastatin 20 mg tablet 20 mg PO BEDTIME RF: 0 citalopram [Celexa] 40 mg tablet 40 mg PO BEDTIME RF: 0 omeprazole 40 mg capsule,delayed release(DR/EC) 40 mg PO BID RF: 0 alprazolam [Xanax] 0.25 mg tablet 0.25 mg PO Q6H PRN (Reason: Anxiety) RF: 0 montelukast [Singulair] 10 mg tablet 10 mg PO DAILY RF: 0 prochlorperazine maleate 10 mg capsule, extended release 10 mg PO BID RF: 0 tizanidine [Zanaflex] 4 mg capsule 4 mg PO Q6H PRN (Reason: Muscle Spasm) RF: 0 Tresiba FlexTouch U-200 200 unit/mL (3 mL) insulin pen 200 unit SUBCUT ONCE Qty: 9 RF: 3 albuterol sulfate [Ventolin HFA] 90 mcg/actuation HFA aerosol inhaler 2 puff INHALATION Q4H PRN (Reason: shortness of breath) Qty: 18 RF: 6 aspirin 81 mg Tablet,Delayed Release (Dr/Ec) 81 mg PO BID RF: 0 Dulcolax (bisacodyl) 5 mg Tablet,Delayed Release (Dr/Ec) 5 mg PO DAILY RF: 0 methadone 10 mg tablet 10 mg PO BID RF: 0 Discharge Orders: Discharge Order (Routine); Ordered 11/01/19 Ordered By: Qing Muhammad Referrals: Donald Bolaños MD [Primary Care Provider] - Discharge Diet: Cardiac, Diabetic and Low Salt Discharge Activity: Resume usual activity Discharge Attestations Time Spent in Discharge Care*: greater than 30 min Quality Metrics Clinical Quality Measures During this hospital stay, did patient experience: None Coding Level of Care Code Acute Manager Social Services for [facility] Fwd Diagnoses Sepsis A41.9 Community acquired pneumonia J18.9 Hypoxia R09.02 Reflex sympathetic dystrophy G90.50 Diabetes 1.5, managed as type 2 E13.9 COPD (chronic obstructive pulmonary disease) J43.1 COPD type: emphysema Emphysema type: panlobular
--- NOTE | 2019-11-01 14:56 | PC.NURSE ---
Patient requires 3L of oxygen at all times. This nurse told patient that I would get with social work manager to get some oxygen for her to go home on so that she wasn't without. Patient states she doesn't need to wear it home she says her home is 20 minutes away. This nurse educated patient on risks of being without oxygen for that long and that she would need some to go home on. Patient states she will be fine until she gets home she doesn't want to wait for it This nurse informed Dr. Muhammad
--- NOTE | 2019-11-01 15:21 | DCPLANNER ---
Pt was d/c'd today. We were not triggered to see her however the liter flow on the 02 that she was already using was increased. Per Nursing; she would not wait for a portable to be brought over. Director Of Quality faxes the test, new order etc. to [facility]. Per previous records; that is who she uses.
--- NOTE | 2019-11-01 18:43 | USR_ITS ---
PROCEDURE INFORMATION: Exam: US Duplex Lower Extremity Veins Exam date and time: 10/31/2019 10:10 PM Age: 59 years old Clinical indication: Other: Venous stasis dermatitis; Additional info: R/O dvt TECHNIQUE: Imaging protocol: Real-time duplex ultrasound of the Lower Extremities with 2-D cloud scale, color Doppler flow and spectral waveform analysis with image documentation. Complete exam focused on the bilateral lower extremity veins. COMPARISON: No relevant prior studies available. FINDINGS: Evaluation is somewhat limited by patient body habitus. Right deep veins: No deep venous thrombosis in the visualized right common femoral, profunda femorals, superficial femoral, popliteal, or peroneal veins. Right superficial veins: Saphenofemoral junction is patent without thrombus. Left deep veins: No deep venous thrombosis in the visualized left common femoral, profunda femorals, superficial femoral, popliteal, or peroneal veins. Left superficial veins: Saphenofemoral junction is patent without thrombus. Soft tissues: Unremarkable. US/CV venous duplex [facility] [id number] IMPRESSION: No deep venous thrombosis in the visualized bilateral lower extremities.
== END 2019-11-01 15:07 | disposition home or self-care (01) | DRG 871 ==
LOC: ER 04:51 → MEDSURG 05:06
PROVIDERS: Admitting Provider Internal Medicine; Emergency Provider Emergency Medicine; Family Provider Internal Medicine; PCP Internal Medicine; Visit Provider Student in an Organized Health Care Education/Training Program
DX: A41.9 Sepsis, unspecified organism (principal); J18.9 Pneumonia, unspecified organism; J96.21 Acute and chronic respiratory failure with hypoxia; Z68.43 Body mass index [BMI] 50.0-59.9, adult; F11.20 Opioid dependence, uncomplicated; G90.50 Complex regional pain syndrome I, unspecified; J43.1 Panlobular emphysema; Z99.81 Dependence on supplemental oxygen; E66.01 Morbid (severe) obesity due to excess calories; E13.51 Other specified diabetes mellitus with diabetic peripheral angiopathy without gangrene; E78.5 Hyperlipidemia, unspecified; I50.9 Heart failure, unspecified; F17.210 Nicotine dependence, cigarettes, uncomplicated; Z99.3 Dependence on wheelchair; Z79.82 Long term (current) use of aspirin; Z79.899 Other long term (current) drug therapy; Z88.1 Allergy status to other antibiotic agents; Z88.8 Allergy status to other drugs, medicaments and biological substances; Z91.041 Radiographic dye allergy status; E13.40 Other specified diabetes mellitus with diabetic neuropathy, unspecified; H40.9 Unspecified glaucoma; H26.9 Unspecified cataract; N18.9 Chronic kidney disease, unspecified; Z79.4 Long term (current) use of insulin
CPT/HCPCS: 12345; 36415; 36416; 36600; 70450; 71045; 72131; 80053; 81001; 82550; 82803; 82962; 83605; 84484; 85025; 87040; 87077; 87086; 87186; 87449; 87804; 93005; 93970; 94640; 96372; 96374; 99283; J0131; J0696; J1644; J1815; J1956; J2405; J7030; Q0144

== ENCOUNTER 2020-01-19 14:16 | Outpatient (CLI) | payer MEDICARE, SELFPAY ==
--- NOTE | 2020-01-19 14:37 | XR_ITS ---
WS: [id number] RIGHT ANKLE: 3 VIEW(S) TECHNIQUE: AP, oblique(s) and lateral. HISTORY: Ankle Injury COMPARISON: None available. Normal anatomic alignment with no fracture or dislocation. No joint effusion or widening of the ankle mortise. No significant degenerative changes at the joint spaces. Mild diffuse soft tissue edema. XR/XR ankle RT min 3V* [id number] IMPRESSION: Soft tissue edema. No fracture identified.
== END 2020-01-19 14:17 | disposition home or self-care (01) ==
LOC: RAD 14:19
PROVIDERS: PCP Internal Medicine; Visit Provider Internal Medicine
DX: S99.911A Unspecified injury of right ankle, initial encounter (principal); W19.XXXA Unspecified fall, initial encounter; M25.571 Pain in right ankle and joints of right foot; R60.9 Edema, unspecified
CPT/HCPCS: 73610

== ENCOUNTER → 2020-02-02 08:14 | Outpatient (BNVA) | payer MEDICARE, SELFPAY | PROVIDERS: PCP Internal Medicine; Referring Provider Internal Medicine; Visit Provider Specialist | DX: E11.41 Type 2 diabetes mellitus with diabetic mononeuropathy (principal); G58.7 Mononeuritis multiplex; G62.9 Polyneuropathy, unspecified; F17.210 Nicotine dependence, cigarettes, uncomplicated; E11.40 Type 2 diabetes mellitus with diabetic neuropathy, unspecified | CPT/HCPCS: 36415; 82595; 82607; 84155; 84165; 85651; 86140; 99204 ==

== ENCOUNTER 2020-02-02 10:38 | Outpatient (CLI) | payer MEDICARE, SELFPAY ==
[2020-02-02 11:40] LABS: C Reactive Protein 2.7 mg/L (0.0-4.9)
[2020-02-02 11:56] LABS: Vitamin B12 545 pg/mL (232-1245)
[2020-02-02 12:13] LABS: Erythrocyte Sedimentation Rate 12 mm/hr (0-15)
[2020-02-08 04:26] LABS: Cryoglobulins Qualitative None Detected (None Detected)
== END 2020-02-02 10:39 | disposition home or self-care (01) ==
LOC: LAB 10:50
PROVIDERS: PCP Internal Medicine; Visit Provider Specialist
DX: E11.40 Type 2 diabetes mellitus with diabetic neuropathy, unspecified (principal); E11.41 Type 2 diabetes mellitus with diabetic mononeuropathy; G58.7 Mononeuritis multiplex
CPT/HCPCS: 36415; 82595; 82607; 84155; 84165; 85651; 86140

== ENCOUNTER 2020-02-03 15:43 | Outpatient (CLI) | payer MEDICARE, SELFPAY ==
[2020-02-04 08:21] LABS: PROTEIN, TOTAL 6.8 g/dL (6.1-8.1)
[2020-02-04 13:31] LABS: ALBUMIN 3.7 g/dL (3.8-4.8); ALPHA 1 GLOBULIN 0.3 g/dL (0.2-0.3); ALPHA 2 GLOBULIN 0.8 g/dL (0.5-0.9); BETA 1 GLOBULIN 0.6 g/dL (0.4-0.6); BETA 2 GLOBULIN 0.4 g/dL (0.2-0.5)
[2020-02-09 19:51] LABS: COMPLEMENT, TOTAL (CH50) >60 U/mL (31-60)
[2020-02-10 10:27] LABS: COMPLEMENT COMPONENT C3C 166 mg/dL (83-193); COMPLEMENT COMPONENT C4C 37 mg/dL (15-57)
[2020-02-11 00:05] LABS: DNA AB (DS) CRITHIDIA,IFA NEGATIVE (NEGATIVE)
== END 2020-02-03 15:44 | disposition home or self-care (01) ==
LOC: LAB 15:46
PROVIDERS: PCP Internal Medicine; Visit Provider Specialist
DX: E11.40 Type 2 diabetes mellitus with diabetic neuropathy, unspecified (principal); E11.41 Type 2 diabetes mellitus with diabetic mononeuropathy; G58.7 Mononeuritis multiplex
CPT/HCPCS: 36415; 84155; 84165

== ENCOUNTER 2020-02-11 10:49 | Outpatient (CLI) | payer MEDICARE, SELFPAY ==
--- NOTE | 2020-02-11 11:00 | CT_ITS ---
WS: [id number] CT CERVICAL SPINE TECHNIQUE: Noncontrast CT of the cervical spine with coronal and sagittal reformatted images. CLINICAL INFORMATION: weakness COMPARISON: None. DLP: 1789.[address] scans at [facility] use at least one of these dose optimization techniques: automat ed exposure control; mA and/or kV adjustment per patient size (includes targeted exams where dose is matched to clinical indication); or iterative reconstruction. FINDINGS: Cervical curve convex left. Reversal normal cervical lordosis. Normal C1-2 articulation. Mild spondy litic changes disc osteophyte complexes worse at C5-C6 and C6-C7. No high-grade central canal stenosi s. C2-C3: Normal. C3-C4: Minimal disc bulging. Mild osteophytic ridging. Spinal canal and foramen are patent. Mild face t arthropathy. C4-C5: Disc osteophyte complex endplate ridging. Mild right and no significant left foraminal narrowi ng. Mild facet arthropathy. Spinal canal is patent. Tiny central protrusion. C5-C6: Disc osteophyte complex eccentric to the left with mild to moderate bilateral bony foraminal n arrowing. Mild central canal stenosis with slight indentation left ventral cervical cord. Mild facet arthropathy. C6-C7: Disc osteophyte complex with endplate ridging. Mild right and no significant left foraminal na rrowing. Spinal canal is patent. Mild facet arthropathy. C7-T1: No significant disc bulging. Spinal canal and foramen are patent. Markedly enlarged multinodular thyroid measuring 2.2 x 3.6 cm in the left left and 3.5 x 2.2 cm in th e right extending into the superior mediastinum. This can be followed up with ultrasound. CT/CT cervical spin wo con* [id number] IMPRESSION: 1. Mild cervical curve convex left. Reversal the normal cervical lordosis. 2. Disc osteophyte complexes worse at C5-C7. 3. Mild to moderate bony foraminal narrowing more prominent at bilateral C5-C6 , and right C6-7. 4. Mild central canal stenosis C5-C6 with small left pericentral disc osteophy te protrusion. 5. Partially visualized markedly enlarged nodular thyroid extending into the s uperior mediastinum. Surgical clips along the thyroid bed. This can be further evaluated with ultrasound. 6. Overall spondylitic changes in the mid cervical spine have progressed sligh tly since 2016.
== END 2020-02-11 10:50 | disposition home or self-care (01) ==
PROVIDERS: Family Provider Internal Medicine; PCP Internal Medicine; Visit Provider Specialist
DX: R53.1 Weakness (principal); M25.78 Osteophyte, vertebrae; M48.02 Spinal stenosis, cervical region; M50.222 Other cervical disc displacement at C5-C6 level; E04.1 Nontoxic single thyroid nodule
CPT/HCPCS: 72125

== ENCOUNTER 2020-02-25 13:14 | Outpatient (CLI) | payer MEDICARE, SELFPAY | END 2020-02-25 13:15 | disposition home or self-care (01) | PROVIDERS: Family Provider Internal Medicine; PCP Internal Medicine; Visit Provider Nurse Practitioner Family | DX: E11.622 Type 2 diabetes mellitus with other skin ulcer (principal); L97.312 Non-pressure chronic ulcer of right ankle with fat layer exposed; L97.812 Non-pressure chronic ulcer of other part of right lower leg with fat layer exposed | CPT/HCPCS: 11042 ==

== ENCOUNTER 2020-02-29 15:35 | Outpatient (CLI) | payer MEDICARE, SELFPAY ==
--- NOTE | 2020-02-29 | USCV_ITS ---
Marion Stuart Age: 59 Gender: F : 1960 Exam Date: 02/29/2020 15:58 Ordering Phys: Triny Patel Technologist: Sabra Gunn Exam Location: [facility] [place] Indication: HISTORY: Patient has history of ulcers PROCEDURES: Bilateral duplex Venous Insufficiency study of the Deep and Superficial systems was carried out according to normal protocol with the patient in supine positon for deep system and dependent position for the superficial system. FINDINGS: There is no evidence of bilateral deep vein thrombosis. No evidence of superficial thrombosis in the bilateral saphenous system. No evidence of reflux was noted in the bilateral deep venous system. No venous reflux noted in the bilateral greater saphenous vein. No venous reflux noted in the bilateral small saphenous vein. CONCLUSIONS No evidence of DVT in the above-mentioned identifiable veins. Relatively large superficial veins bilaterally. No significant venous reflux. The venous dimensions and depth from the surface are as mentioned above Dr Adonay Paz MD FACC (Electronically Signed) Final Date: 29 February 2020 21:29 S
== END 2020-02-29 15:36 | disposition home or self-care (01) ==
LOC: US 15:39
PROVIDERS: PCP Internal Medicine; Visit Provider Nurse Practitioner Family
DX: L97.929 Non-pressure chronic ulcer of unspecified part of left lower leg with unspecified severity (principal); L97.919 Non-pressure chronic ulcer of unspecified part of right lower leg with unspecified severity
CPT/HCPCS: 93970

== ENCOUNTER 2020-03-10 12:29 | Outpatient (CLI) | payer MEDICARE, SELFPAY ==
--- NOTE | 2020-03-10 12:44 | US_ITS ---
WS: [id number] ULTRASOUND THYROID TECHNIQUE: Ultrasound of the thyroid. CLINICAL INFORMATION: ENLARGED THYROID COMPARISON: Ultrasound 2014 FINDINGS: Thyroid: Diffuse enlargement of the right greater than left thyroid lobes with masslike nodularity. D ominant solid right thyroid nodule measuring 3.2 x 2.8 cm. Right thyroid lobe: 6.5 cm x 2.4 cm x 3.2 cm Left thyroid lobe: 6.1 cm x 4.1 cm x 3.7 cm. Isthmus: 0.6 mm. Cervical lymphadenopathy: None. US/US thyroid [id number] IMPRESSION: 1. Marked masslike enlargement of the right greater than left thyroid. Finding s likely due to goiter. Recommend correlation with thyroid function studies. 2. Dominant nodule in the right thyroid measures 3.2 x 2.8 cm. This can be fur ther evaluated with ultrasound-guided FNA if indicated. 3. Overall findings are similar to 2014
--- NOTE | 2020-03-10 12:51 | USCV_ITS ---
Marion Stuart Age: 59 Gender: F : 1960 Exam Date: 03/10/2020 13:02 Ordering Phys: Triny Patel Technologist: Reji Beyer Exam Location: [facility] [place] Indication: ULCER RT FOOT RIGHT LEFT Brachial 142.00 mmHg Brachial 150.00 mmHg Pressure (mmHg) Waveform Pressure (mmHg) Waveform 220.00 ACCOUNTS RECEIVABLE BOOKKEEPER 220.00 133.00 DPA 220.00 Pre-Exercise Toe Pressure 148.00 118.00 0.79 Pre-Exercise Toe/Brachial Index 0.99 FINDINGS Supernormal resting ABIs bilaterally Normal resting TBIs bilaterally PVR waveforms showing blunting of the dicrotic notch CONCLUSIONS No significant arterial obstruction, based on the above findings Features of arterial noncompliance Dr Adonay Paz MD FAC (Electronically Signed) Final Date: 10 March 2020 20:56 S
== END 2020-03-10 12:30 | disposition home or self-care (01) ==
LOC: US 12:30
PROVIDERS: PCP Internal Medicine; Visit Provider Nurse Practitioner Family
DX: L97.519 Non-pressure chronic ulcer of other part of right foot with unspecified severity (principal); E04.9 Nontoxic goiter, unspecified; E04.1 Nontoxic single thyroid nodule
CPT/HCPCS: 76536; 93923

== ENCOUNTER 2020-03-10 14:03 | Outpatient (CLI) | payer MEDICARE, SELFPAY | END 2020-03-10 14:04 | disposition home or self-care (01) | LOC: WOUND 14:03 | PROVIDERS: PCP Internal Medicine; Visit Provider Emergency Medicine | DX: E11.622 Type 2 diabetes mellitus with other skin ulcer (principal); L97.312 Non-pressure chronic ulcer of right ankle with fat layer exposed; L97.519 Non-pressure chronic ulcer of other part of right foot with unspecified severity; E04.9 Nontoxic goiter, unspecified; E04.1 Nontoxic single thyroid nodule | CPT/HCPCS: 11042; 76536; 93923 ==

== ENCOUNTER 2020-03-17 14:54 | Outpatient (CLI) | payer MEDICARE, SELFPAY | END 2020-03-17 14:55 | disposition home or self-care (01) | LOC: WOUND 14:56 | PROVIDERS: PCP Internal Medicine; Visit Provider Nurse Practitioner Family | DX: E11.622 Type 2 diabetes mellitus with other skin ulcer (principal); L97.312 Non-pressure chronic ulcer of right ankle with fat layer exposed | CPT/HCPCS: 11042 ==

== ENCOUNTER → 2020-03-28 12:53 | Outpatient (BNVA) | payer MEDICARE, SELFPAY | PROVIDERS: PCP Internal Medicine; Visit Provider Internal Medicine | DX: E03.9 Hypothyroidism, unspecified (principal); E11.40 Type 2 diabetes mellitus with diabetic neuropathy, unspecified; E78.5 Hyperlipidemia, unspecified; E04.1 Nontoxic single thyroid nodule; E11.22 Type 2 diabetes mellitus with diabetic chronic kidney disease; N18.4 Chronic kidney disease, stage 4 (severe); E11.621 Type 2 diabetes mellitus with foot ulcer; L97.509 Non-pressure chronic ulcer of other part of unspecified foot with unspecified severity; E16.0 Drug-induced hypoglycemia without coma; T38.3X5A Adverse effect of insulin and oral hypoglycemic [antidiabetic] drugs, initial encounter; L84 Corns and callosities; E66.01 Morbid (severe) obesity due to excess calories; Z68.42 Body mass index [BMI] 45.0-49.9, adult | CPT/HCPCS: 99204 ==

== ENCOUNTER 2020-04-04 13:16 | Outpatient (CLI) | payer MEDICARE, SELFPAY | END 2020-04-04 13:17 | disposition home or self-care (01) | LOC: WOUND 13:17 | PROVIDERS: PCP Internal Medicine; Visit Provider Emergency Medicine | DX: E11.622 Type 2 diabetes mellitus with other skin ulcer (principal); L97.312 Non-pressure chronic ulcer of right ankle with fat layer exposed | CPT/HCPCS: 11042; 87070; 87077; 87176; 87184; 87186; 87205 ==

== ENCOUNTER → 2020-04-14 11:39 | Outpatient (BNVA) | payer MEDICARE, SELFPAY | PROVIDERS: PCP Internal Medicine; Referring Provider Internal Medicine; Visit Provider Podiatrist Foot & Ankle Surgery | DX: E11.22 Type 2 diabetes mellitus with diabetic chronic kidney disease (principal); N18.4 Chronic kidney disease, stage 4 (severe); E11.42 Type 2 diabetes mellitus with diabetic polyneuropathy; L60.3 Nail dystrophy; I73.9 Peripheral vascular disease, unspecified; M79.671 Pain in right foot | CPT/HCPCS: 73630 ==

== ENCOUNTER 2020-04-18 13:15 | Outpatient (CLI) | payer MEDICARE, SELFPAY | END 2020-04-18 13:16 | disposition home or self-care (01) | LOC: WOUND 13:16 | PROVIDERS: PCP Internal Medicine; Visit Provider Emergency Medicine | DX: E11.622 Type 2 diabetes mellitus with other skin ulcer (principal); L97.312 Non-pressure chronic ulcer of right ankle with fat layer exposed; L97.822 Non-pressure chronic ulcer of other part of left lower leg with fat layer exposed | CPT/HCPCS: 11042 ==

== ENCOUNTER 2020-04-25 13:27 | Outpatient (CLI) | payer MEDICARE, SELFPAY | END 2020-04-25 13:28 | disposition home or self-care (01) | LOC: WOUND 13:28 | PROVIDERS: PCP Internal Medicine; Visit Provider Nurse Practitioner Family | DX: S80.812A Abrasion, left lower leg, initial encounter (principal); X58.XXXA Exposure to other specified factors, initial encounter | CPT/HCPCS: 11042 ==

== ENCOUNTER 2020-05-11 12:41 | Emergency (ER) | payer MEDICARE, SELFPAY ==
--- NOTE | 2020-05-11 12:33 | ECG_ITS ---
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 Measurements Intervals [place] Rate: 75 P: -12 MA: 196 QRS: 0 QRSD: 113 T: 72 QT: 396 QTc: 443 Interpretive Statements SINUS RHYTHM POSSIBLE INFERIOR MYOCARDIAL INFARCTION , PROBABLY OLD [30 ms Q WAVE IN II/aVF] Compared to ECG 10/31/2019 04:15:45 Nonspecific T wave changes No significant changes Electronically Signed On 05-11-2020 19:42:13 CDT by Adonay Paz M.D. [email or web address]
--- NOTE | 2020-05-11 12:33 | XR_ITS ---
WS: [id number] EXAM: AP CHEST: PORTABLE UPRIGHT DATE OF EXAM: 05/11/2020, 1237 hours COMPARISON: Chest x-rays from 05/10/2019 10/31/2019. HISTORY: Patient is 59 years old with dyspnea and cough. FINDINGS: The cardiac silhouette is considered slightly enlarged but similar. The mediastinal contours are n ormal. The pulmonary vascularity is slightly congested. Bibasilar infiltrates noted on the prior e xamination for the most part have resolved. I suspect some minimal atelectasis left lung base. A few calcified granulomas changes seen. There is no effusion or pneumothorax. Scattered degenerative franko nges are seen in the spine. There are surgical clips along the right side of the upper cervicothoraci c juncture suggesting prior thyroid surgery. XR/XR chest 1V portable [id number] IMPRESSION: Slight chronic lung changes. What is presumed to be some minimal atelectasis ri ght lung base. No consolidating pneumonia or pulmonary edema.
--- NOTE | 2020-05-11 12:35 | ED_ITS ---
HPI - General Adult General: Chief complaint: Weakness Stated complaint: HTN,HYPERGLYCEMIA History of Present Illness: HPI narrative: 59-year-old female presents complaining of elevated glucose and blood pressures. She also has been a little short of breath she has not had any fever she has had some dyspnea on exertion but he claims that is her baseline she has had a few loose stools denies any chest pain denies any dysuria urgency or frequency. Onset (ago): day(s) Severity: moderate Relieving factors: none Exacerbating factors: none Associated symptoms: Reports cough and dyspnea; Deny chest pain, confusion, diaphoresis, decreased appetite, fevers/chills, headache(s), malaise, nausea, rash, palpitations, seizures, short of breath, syncope, vomiting or weakness Treatments prior to arrival: none Review of Systems Const: Denies: malaise or diaphoresis ENMT: Denies: throat pain, ear or mastoid pain, nasal discharge or nasal congestion Card: Denies: chest pain, palpitations or syncope Resp: Reports: dyspnea GI: Denies: nausea or vomiting : Denies: flank pain, difficulty voiding, dysuria, urinary frequency or urinary urgency Skin/Breast: Denies: rash Neuro: Denies: headache(s) or confusion PFSH ED PFSH: Medical History Cataract COPD (chronic obstructive pulmonary disease) Diabetes 1.5, managed as type 2 Diabetic neuropathy Glaucoma Morbid obesity Neuropathy Peripheral vascular disease Reflex sympathetic dystrophy Smoker Venous stasis dermatitis Surgical History H/O: hysterectomy History of cholecystectomy History of thyroidectomy Family History Father No problems noted. Mother Cancer Other Diabetes Social History Smoking and tobacco status: current every day smoker cigarettes Packs smoked per day: 2 Years cigarettes smoked: 45 Quit status (tobacco): considering quitting Second hand smoke exposure: Yes Alcohol intake: never History of recent travel: No Physical Exam Const: COMMON NORMALS: no acute distress GENERAL APPEARANCE: cooperative and comfortable ORIENTATION/CONSCIOUSNESS: Yes awake, Yes oriented to person, Yes oriented to place and Yes oriented to time HENMT: COMMON NORMALS: normocephalic, atraumatic and hearing grossly normal bilaterally HEAD & SCALP: normocephalic and atraumatic Eye: COMMON NORMALS: Equal, round and reactive pupils present, EOMs intact bilaterally, conjunctivae normal and no scleral icterus CONJUNCTIVA: Yes conjunctivae normal PUPIL: Yes Equal, round and reactive pupils present Neck/C-Spine: COMMON NORMALS: full ROM, no lymphadenopathy, supple and no JVD Lymph: LYMPHATIC: no lymphadenopathy noted and no lymphedema noted Cardio: COMMON NORMALS: no JVD, regular rate, regular rhythm and No murmurs present (Cardio) RATE: regular rate RHYTHM: regular rhythm GI: COMMON NORMALS: Soft to palpation and No hepatosplenomegaly present AUSCULTATION: Yes normoactive bowel sounds PALPATION: Yes Soft to palpation, No Tenderness to palpation present (GI), No Guarding due to palpation present (GI) and Yes No hepatosplenomegaly present Extremity: COMMON NORMALS: normal to inspection, capillary refill normal, no clubbing, cyanosis or edema, no calf tenderness and no pedal edema Neuro: SENSORIUM/ORIENTATION: Yes oriented to person, Yes oriented to place and Yes oriented to time Skin: COMMON NORMALS: no rashes or lesions noted GENERAL SKIN EXAM: no rashes or lesions noted Course Vital Signs: Vital signs: Vital Signs Temperature 98.1 F 05/11/20 12:37 Pulse Rate 74 05/11/20 14:31 Respiratory Rate 20 H 05/11/20 14:31 Blood Pressure 162/75 05/11/20 14:31 Pulse Oximetry 96 05/11/20 14:31 [facility] - General Adult Lab Data: Labs: Lab Results 05/11/20 05/11/20 05/11/20 Range/Units 13:14 13:14 13:14 WBC 10.4 H (4.0-10.0) 10^3/ uL RBC 5.75 H (4.1-5.3) 10^6/u L Hgb 13.7 (11.5-15.3) g/dL Hct 45.7 (37.0-47.0) % MCV 79.5 L (81-99) fL MCH 23.8 L (28.0-34.0) pg MCHC 30.0 (30.0-36.0) g/dL RDW 17.7 H (12.1-15.1) % Plt Count 226 (130-400) 10^3/c mm MPV 10.8 H (7.4-10.4) fL Neut % (Auto) 69.2 % Lymph % (Auto) 16.1 % [place] % (Auto) 9.1 % Eos % (Auto) 4.4 % Baso % (Auto) 0.7 % Neut # (Auto) 7.20 (1.8-7.7) 10^3/u L Lymph # (Auto) 1.7 (0.8-4.8) 10^3/u L [place] # (Auto) 1.0 H (0.2-0.9) 10^3/u L Eos # (Auto) 0.5 (0.0-0.8) 10^3/u L Baso # (Auto) 0.1 (0.0-0.1) 10^3/u L Nucleated RBC % (a uto) 0 % Nucleated RBCs # 0.0 /100WBC Fibrinogen 529 H (174-498) mg/dL D-Dimer 1.52 H (0-0.59) ug/mIFE U Specimen Type Sample Site ABG pH (7.35-7.45) ABG pCO2 (35-45) mmHg ABG pO2 (80.0-100.0) mmH g ABG HCO3 (22-26) mmol/L ABG O2 Saturation ABG Base Excess (-2.0-2.0) mmol/ L Darrius Test A-a O2 Gradient (5-10) mmHg Hematocrit (37-47) % Hgb O2 Saturation (95-100) % Carboxyhemoglobin (0.4-20.1) %THgb Methemoglobin (0.4-1.5) % Total Hemoglobin (12-16) g/dL Ionized Calcium (1.1-1.4) mmol/L O2 Delivery Device O2 Liters/Min % FiO2 % Communications Consultant ID Sodium 136 (136-145) mmol/L Potassium 4.2 (3.5-5.1) mmol/L Chloride 100 (98-107) mmol/L Carbon Dioxide 25 (22-29) mmol/L Anion Gap 15.2 (5-19) BUN 31 H (8-23) mg/dL Creatinine 1.3 H (0.5-0.9) mg/dL GFR Calculation 41.8 L (90-130) mL/min Glucose 306 H (65-115) mg/dL Calculated Osmolal ity 300 H (285-295) mOsm/k g Lactic Acid (0.5-2.2) mmol/L Calcium 10.1 (8.5-10.5) mg/dL Ferritin 39 (15-150) ng/mL Total Bilirubin 0.4 (0.15-1.2) mg/dL AST 12 (0-32) U/L ALT 15 (0-33) U/L Alkaline Phosphata se 120 H (35-105) IU/L Lactate Dehydrogen ase 168 (135-214) U/L Creatine Kinase 82 (26-192) U/L C-Reactive Protein 22.1 H (0.0-4.9) mg/L Total Protein 7.5 (6.6-8.7) g/dL Albumin 4.2 (3.5-5.2) g/dL Globulin 3.3 (1.3-4.6) g/dL Procalcitonin 0.10 (0-0.5) ng/mL Serum Ketones Negative (Negative) Influenza Type A A g (Negative) Influenza Type B A g (Negative) 05/11/20 05/11/20 05/11/20 Range/Units 13:14 13:23 13:25 WBC (4.0-10.0) 10^3/ uL RBC (4.1-5.3) 10^6/u L Hgb (11.5-15.3) g/dL Hct (37.0-47.0) % MCV (81-99) fL MCH (28.0-34.0) pg MCHC (30.0-36.0) g/dL RDW (12.1-15.1) % Plt Count (130-400) 10^3/c mm MPV (7.4-10.4) fL Neut % (Auto) % Lymph % (Auto) % [place] % (Auto) % Eos % (Auto) % Baso % (Auto) % Neut # (Auto) (1.8-7.7) 10^3/u L Lymph # (Auto) (0.8-4.8) 10^3/u L [place] # (Auto) (0.2-0.9) 10^3/u L Eos # (Auto) (0.0-0.8) 10^3/u L Baso # (Auto) (0.0-0.1) 10^3/u L Nucleated RBC % (a uto) % Nucleated RBCs # /100WBC Fibrinogen (174-498) mg/dL D-Dimer (0-0.59) ug/mIFE U Specimen Type Arterial Sample Site Radial, left ABG pH 7.35 (7.35-7.45) ABG pCO2 45.1 H (35-45) mmHg ABG pO2 55.2 L (80.0-100.0) mmH g ABG HCO3 24.9 (22-26) mmol/L ABG O2 Saturation 92.3 ABG Base Excess -1.1 (-2.0-2.0) mmol/ L Darrius Test Pos A-a O2 Gradient 15.3 H (5-10) mmHg Hematocrit 42.2 (37-47) % Hgb O2 Saturation 83.1 L (95-100) % Carboxyhemoglobin 9.2 (0.4-20.1) %THgb Methemoglobin 0.7 (0.4-1.5) % Total Hemoglobin 13.8 (12-16) g/dL Ionized Calcium 1.4 (1.1-1.4) mmol/L O2 Delivery Device Nc O2 Liters/Min 3.0 % FiO2 32.0 % Communications Consultant ID Amh Sodium 139.0 (136-145) mmol/L Potassium 4.0 (3.5-5.1) mmol/L Chloride (98-107) mmol/L Carbon Dioxide (22-29) mmol/L Anion Gap (5-19) BUN (8-23) mg/dL Creatinine (0.5-0.9) mg/dL GFR Calculation (90-130) mL/min Glucose 280.0 H (65-115) mg/dL Calculated Osmolal ity (285-295) mOsm/k g Lactic Acid 2.2 (0.5-2.2) mmol/L Calcium (8.5-10.5) mg/dL Ferritin (15-150) ng/mL Total Bilirubin (0.15-1.2) mg/dL AST (0-32) U/L ALT (0-33) U/L Alkaline Phosphata se (35-105) IU/L Lactate Dehydrogen ase (135-214) U/L Creatine Kinase (26-192) U/L C-Reactive Protein (0.0-4.9) mg/L Total Protein (6.6-8.7) g/dL Albumin (3.5-5.2) g/dL Globulin (1.3-4.6) g/dL Procalcitonin (0-0.5) ng/mL Serum Ketones (Negative) Influenza Type A A g Negative (Negative) Influenza Type B A g Negative (Negative) Discharge Plan Discharge Patient Disposition: Home Clinical Impression: COPD (chronic obstructive pulmonary disease), CKD stage 4 due to type 2 diabetes mellitus, Diabetes 1.5, managed as type 2 Condition: Stable Prescriptions: New amlodipine 2.5 mg tablet 2.5 mg PO DAILY Qty: 30 RF: 0 No Action bumetanide 2 mg tablet 2 mg PO DAILY RF: 0 Relistor 150 mg tablet 150 mg PO QAM RF: 0 hydroxyzine HCl 25 mg tablet 25 mg PO Q4H PRN (Reason: Allergic Symptoms) RF: 0 simvastatin 20 mg tablet 20 mg PO BEDTIME RF: 0 citalopram [Celexa] 40 mg tablet 40 mg PO BEDTIME RF: 0 omeprazole 40 mg capsule,delayed release(DR/EC) 40 mg PO BID RF: 0 tizanidine [Zanaflex] 4 mg capsule 4 mg PO Q6H PRN (Reason: Muscle Spasm) RF: 0 albuterol sulfate [Ventolin HFA] 90 mcg/actuation HFA aerosol inhaler 2 puff INHALATION Q4H PRN (Reason: shortness of breath) Qty: 18 RF: 6 topiramate [Topamax] 100 mg tablet 100 mg PO BID Qty: 60 RF: 3 montelukast 10 mg tablet 10 mg PO DAILY Qty: 90 RF: 0 methadone 10 mg tablet 10 mg PO BID 30 Days Qty: 60 RF: 0 aspirin 81 mg Tablet,Delayed Release (Dr/Ec) 81 mg PO BID RF: 0 bisacodyl [Dulcolax (bisacodyl)] 5 mg Tablet,Delayed Release (Dr/Ec) 15 mg PO BEDTIME RF: 0 levothyroxine 112 mcg capsule 112 mcg PO DAILY RF: 0 prochlorperazine maleate 10 mg tablet 10 mg PO BID PRN (Reason: Nausea) RF: 0 Xanax 0.25 mg tablet 0.25 mg PO DAILY PRN (Reason: Anxiety) RF: 0 Novolog Flexpen U-100 Insulin 100 unit/mL (3 mL) insulin pen See Rx Instructions .ROUTE .COMPLEX RF: 0 Tresiba FlexTouch U-200 200 unit/mL (3 mL) insulin pen 170 unit SUBCUT DAILY RF: 0 Discharge Orders: Discharge Order (Routine); Ordered 05/11/20 Ordered By: Ian Stover Referrals: Donald Bolaños MD [Primary Care Provider] - Discharge Diet: Usual diet Discharge Activity: Limit activity as instructed Activity Restrictions/Additional Instructions: Aloe up with your primary care doctor in the next 1 to 2 days use albuterol as needed to start amlodipine you were given scription for today 1 pill daily return if you have problems. You were tested for COVID-19 today recommend that you continue to maintain a self quarantine until results are back. Coding Level of Care Code ED Infrastructure Technician for Jossy Fwd Exam Comprehensive
[2020-05-11 12:37] VITALS: BP 170/73; PULSE 77; RESP 20; TEMP 36.7; O2SAT 91; BMI 64.0
[2020-05-11 13:10] VITALS: BP 156/80; PULSE 76; RESP 22; O2SAT 76
[2020-05-11 13:13] VITALS: O2SAT 95
[2020-05-11 13:27] LABS: Basophils # 0.1 10^3/uL (0.0-0.1); Basophils % 0.7 %; Eosinophils # 0.5 10^3/uL (0.0-0.8); Eosinophils % 4.4 %; Hematocrit 45.7 % (37.0-47.0); Hemoglobin 13.7 g/dL (11.5-15.3); Lymphocytes # 1.7 10^3/uL (0.8-4.8); Lymphocytes % 16.1 %; Mean Corpuscular Hemoglobin 23.8 pg (28.0-34.0); Mean Corpuscular Volume 79.5 fL (81-99); Mean Platelet Volume 10.8 fL (7.4-10.4); Monocytes % 9.1 %; Neutrophils % 69.2 %; Nucleated Red Blood Cells % 0 %; Platelet Count 226 10^3/cmm (130-400); Red Blood Count 5.75 10^6/uL (4.1-5.3); Red Cell Distribution Width 17.7 % (12.1-15.1); White Blood Count 10.4 10^3/uL (4.0-10.0)
[2020-05-11 13:31] VITALS: BP 165/75; PULSE 74; RESP 13; O2SAT 96
[2020-05-11 13:34] LABS: ABG PCO2 45.1 mmHg (35-45); ABG PH Result 7.35 (7.35-7.45); Alveolar-Arterial Oxygen Gradi 15.3 mmHg (5-10); Arterial Blood Gas Hematocrit 42.2 % (37-47); Base Excess ABG -1.1 mmol/L (-2.0-2.0); Blood Gas Allen Test Pos; Blood Gas Operator Identificat AMH; Blood Gas Sample Site Radial, left; Blood Gas Sample Type Arterial; Carboxyhemoglobin 9.2 %THgb (0.4-20.1); HCO3 ABG 24.9 mmol/L (22-26); HGB O2 Sat 83.1 % (95-100); Ionized Calcium Level - ABG 1.4 mmol/L (1.1-1.4); Methemoglobin 0.7 % (0.4-1.5); Oxygen Device NC; Oxygen Saturation ABG 92.3; PO2 ABG 55.2 mmHg (80.0-100.0); Total Hemoglobin 13.8 g/dL (12-16)
--- NOTE | 2020-05-11 13:40 | PC.NURSE ---
patient swabbed for COVID at this time
[2020-05-11 13:42] LABS: Fibrinogen 529 mg/dL (174-498)
[2020-05-11 13:44] LABS: D Dimer 1.52 ug/mIFEU (0-0.59)
[2020-05-11 13:45] LABS: Lactic Sepsis W/Reflex 2.2 mmol/L (0.5-2.2)
[2020-05-11 13:47] LABS: Ketone (Acetest) Serum Negative (Negative)
[2020-05-11 14:03] LABS: Influenza A by IFA Negative (Negative); Influenza B by IFA Negative (Negative)
[2020-05-11 14:10] LABS: Alanine Aminotransferase 15 U/L (0-33); Albumin Level 4.2 g/dL (3.5-5.2); Alkaline Phosphatase 120 IU/L (35-105); Anion Gap 15.2 (5-19); Aspartate Amino Transferase 12 U/L (0-32); Blood Urea Nitrogen 31 mg/dL (8-23); C Reactive Protein 22.1 mg/L (0.0-4.9); Calcium 10.1 mg/dL (8.5-10.5); Carbon Dioxide 25 mmol/L (22-29); Chloride 100 mmol/L (98-107); Creatine Phosphokinase 82 U/L (26-192); Ferritin 39 ng/mL (15-150); Globulin 3.3 g/dL (1.3-4.6); Glomerular Filtration Rate 41.8 mL/min (90-130); Glucose 306 mg/dL (65-115); Lactate Dehydrogenase 168 U/L (135-214); Osmolality Calculated 300 mOsm/kg (285-295); Potassium 4.2 mmol/L (3.5-5.1); Sodium 136 mmol/L (136-145); Total Bilirubin 0.4 mg/dL (0.15-1.2); Total Protein 7.5 g/dL (6.6-8.7)
[2020-05-11 14:31] VITALS: BP 162/75; PULSE 74; RESP 20; O2SAT 96
[2020-05-11 15:06] VITALS: BP 162/75; PULSE 74; RESP 20; O2SAT 96
[2020-05-11 15:09] LABS: Reflex Lactate Order REFLEX LACTIC ORDERD
[2020-05-13 02:46] LABS: Coronavirus Lab Test PTC Negative
--- NOTE | 2020-05-13 08:41 | PC.NURSE ---
Pt notified of negative COVID result.
== END 2020-05-11 15:07 | disposition home or self-care (01) ==
PROVIDERS: Emergency Provider Family Medicine; PCP Internal Medicine
DX: E13.22 Other specified diabetes mellitus with diabetic chronic kidney disease (principal); N18.4 Chronic kidney disease, stage 4 (severe); J44.9 Chronic obstructive pulmonary disease, unspecified; Z79.82 Long term (current) use of aspirin; Z79.4 Long term (current) use of insulin; F17.210 Nicotine dependence, cigarettes, uncomplicated; E13.40 Other specified diabetes mellitus with diabetic neuropathy, unspecified; I73.9 Peripheral vascular disease, unspecified
CPT/HCPCS: 12345; 36415; 36600; 71045; 80051; 80053; 82009; 82550; 82728; 82810; 83605; 83615; 83986; 84145; 85025; 85378; 85384; 86140; 87040; 87635; 87804; 93005; 99284

== ENCOUNTER → 2020-05-17 11:57 | Outpatient (BNVA) | payer MEDICARE, SELFPAY | PROVIDERS: PCP Internal Medicine; Visit Provider Specialist | DX: R29.90 Unspecified symptoms and signs involving the nervous system (principal); E11.41 Type 2 diabetes mellitus with diabetic mononeuropathy; G58.7 Mononeuritis multiplex; M47.12 Other spondylosis with myelopathy, cervical region; F17.210 Nicotine dependence, cigarettes, uncomplicated | CPT/HCPCS: 99214 ==

== ENCOUNTER → 2020-05-30 12:55 | Outpatient (BNVA) | payer MEDICARE, SELFPAY | PROVIDERS: PCP Internal Medicine; Visit Provider Internal Medicine | DX: E04.1 Nontoxic single thyroid nodule (principal); E11.22 Type 2 diabetes mellitus with diabetic chronic kidney disease; N18.4 Chronic kidney disease, stage 4 (severe); E11.42 Type 2 diabetes mellitus with diabetic polyneuropathy; Z79.4 Long term (current) use of insulin; E16.0 Drug-induced hypoglycemia without coma; T38.3X5A Adverse effect of insulin and oral hypoglycemic [antidiabetic] drugs, initial encounter; E66.01 Morbid (severe) obesity due to excess calories; Z68.42 Body mass index [BMI] 45.0-49.9, adult; E89.0 Postprocedural hypothyroidism | CPT/HCPCS: 99214 ==

== ENCOUNTER 2020-06-16 10:48 | Outpatient (CLI) | payer MEDICARE, SELFPAY ==
--- NOTE | 2020-06-16 10:56 | CT_ITS ---
WS: [id number] CT NECK WITH CONTRAST HISTORY: NON TOXIC SINGLE THYROID NODULE TECHNIQUE: Contiguous 5 mm axial images are performed through the neck with intravenous contrast. Sag ittal and coronal reformats are also submitted. All CT scans at [facility] use at least o ne of these dose optimization techniques: automated exposure control; mA and/or kV adjustment per pat ient size (includes targeted exams where dose is matched to clinical indication); or iterative recons truction. CONTRAST: CONTRAST: Visipaque 320; 95 mL IV. DLP: 2031.77 mGycm COMPARISON: 02/11/2020 and 12/29/2015 Nasopharynx, oropharynx, hypopharynx and larynx are mildly asymmetric but similar to prior studies. N o soft tissue masses or abnormal enhancement. Torus tubarius and fossa of Rosenmuller and parapharyngeal fat are normal. No significant lymphadenopathy is identified. Postsurgical clips in the RIGHT thyroid bed. Residual RIGHT thyroid extends substernal and crosses th e midline posterior to the trachea and esophagus. Substernal thyroid is mildly heterogeneous extendin g over length of 4.9 cm x 4.3 x 2.1 cm. There is moderate mass effect upon the esophagus and leftward displacement. LEFT thyroid is also enlarged but more heterogeneous. Ill-defined central hypodense no dule. The entire substernal nodule thyroid measures 6.1 X 2.7 x 3.5 cm. Central infiltrative nodule m easures 1.5 x 2.1 cm. Lobe of the thyroid slightly displaces the LEFT subclavian and LEFT carotid art eries posteriorly and laterally. Straightening and reversal normal cervical lordosis centered at C5 and C6. Visualized portions of the skull base demonstrate no abnormalities. Orbits and globes are within norm al limits. No soft tissue masses. Visualized paranasal sinuses and mastoid air cells are normal. CT/CT neck w con* [id number] IMPRESSION: 1. 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 2. Central infiltrative LEFT thyroid nodule measures 1.5 x 2.1 cm and was rec ently described by ultrasound on 03/10/2020. 3. No adenopathy. 4. Substernal thyroid is causing mild mass effect upon the esophagus, trachea in the LEFT carotid and subclavian arteries.
[2020-06-16] MEDS: iodixanol 320 mg/mL 100mL Btl IV (11:27)
[2020-06-16 13:41] LABS: Basophils # 0.1 10^3/uL (0.0-0.1); Basophils % 0.6 %; Eosinophils # 0.3 10^3/uL (0.0-0.8); Hematocrit 46.6 % (37.0-47.0); Hemoglobin 13.7 g/dL (11.5-15.3); Lymphocytes # 1.8 10^3/uL (0.8-4.8); Lymphocytes % 16.2 %; Mean Corpuscular HGB Conc 29.4 g/dL (30.0-36.0); Mean Corpuscular Volume 81.6 fL (81-99); Mean Platelet Volume 10.5 fL (7.4-10.4); Monocytes # 0.9 10^3/uL (0.2-0.9); Monocytes % 7.7 %; Neutrophils # 7.97 10^3/uL (1.8-7.7); Neutrophils % 71.9 %; Nucleated Red Blood Cells % 0 %; Platelet Count 220 10^3/cmm (130-400); Red Blood Count 5.71 10^6/uL (4.1-5.3); Red Cell Distribution Width 17.4 % (12.1-15.1); White Blood Count 11.1 10^3/uL (4.0-10.0)
--- NOTE | 2020-06-16 14:05 | ECG_ITS ---
[facility] Test Date: 2020-06-16 Pat Name: Marion Stuart Department: Room: Gender: Female [employer]: : 1960 Requested By: Erick Chiu Order Number: [id number] Marilin MD: Morro Eckert M.D. Measurements Intervals [place] Rate: 69 P: -4 FL: 163 QRS: 4 QRSD: 105 T: 82 QT: 329 QTc: 353 Interpretive Statements SINUS RHYTHM NONSPECIFIC T-WAVE ABNORMALITY Compared to ECG 05/11/2020 13:23:07 T-wave abnormality now present Myocardial infarct finding no longer present Electronically Signed On 06-16-2020 18:28:16 CDT by Morro Eckert M.D. [email or web address]
[2020-06-16 14:16] LABS: Alanine Aminotransferase 16 U/L (0-33); Albumin Level 4.1 g/dL (3.5-5.2); Alkaline Phosphatase 138 IU/L (35-105); Anion Gap 15.1 (5-19); Aspartate Amino Transferase 16 U/L (0-32); Blood Urea Nitrogen 29 mg/dL (8-23); Calcium 10.7 mg/dL (8.5-10.5); Carbon Dioxide 24 mmol/L (22-29); Chloride 100 mmol/L (98-107); Globulin 2.9 g/dL (1.3-4.6); Glomerular Filtration Rate 38.4 mL/min (90-130); Glucose 221 mg/dL (65-115); Osmolality Calculated 293 mOsm/kg (285-295); Potassium 4.1 mmol/L (3.5-5.1); Sodium 135 mmol/L (136-145); Total Bilirubin 0.4 mg/dL (0.15-1.2)
== END 2020-06-16 10:49 | disposition home or self-care (01) ==
LOC: RADWPI 13:05 → RT 13:12
PROVIDERS: PCP Internal Medicine; Visit Provider Specialist
DX: E04.1 Nontoxic single thyroid nodule (principal); Z20.828 Contact with and (suspected) exposure to other viral communicable diseases
CPT/HCPCS: 36415; 70491; 80053; 85025; 87635; 93005; Q9967

== ENCOUNTER 2020-06-21 10:30 | Observation (INO) | payer MEDICARE, SELFPAY ==
[2020-06-20 14:30] VITALS: BMI 45.3
[2020-06-21] VITALS (122 sets, daily range): BP systolic 117–180; BP diastolic 53–81; PULSE 72–99; RESP 12–35; TEMP 36.2; O2SAT 93–99
[2020-06-21 06:28] LABS: Glucose Point of Care 167 mg/dL (70-110)
--- NOTE | 2020-06-21 06:34 | ANES.PREANE2 ---
Pre-Anesthetic Assessment Pre-Anesthetic Assessment: Height/Weight: Height 1.68 m Weight 127.459 kg Temp Pulse Resp BP Pulse Ox 97.2 F L 75 24 H 180/71 97 06/21/20 06:20 06/21/20 06:20 06/21/20 06:20 06/21/20 06:20 06/21/20 06:20 Preop Diagnosis: goiter Proposed Procedure: Operation Date: 06/21/20 07:00 Proposed Procedures p Hemithyroidectomy poss total thyroidectomy(Left) - Erick Romero MD Familial anesthetic complications: None Was Beta Brittanie taken within 24 hours: N/A Last intake: Intake Last Liquid Date 06/20/20 Last Liquid Time 23:55 Last Solid Date 06/20/20 Last Solid Time 22:00 Social: Social History: Tobacco and No alcohol Exam: Pre-Anes Outpt Exam: alert, oriented x 3, clear to auscultation bilaterally and regular rate & rhythm Airway: Cervical ROM: WNL MP: 4 Dentition: Other (edentulous) Pulmonary: Pulmonary: COPD (3 l NC chronic), Cough and Sleep apnea (doesn't wear her cpap) CV/HEM: CV/HEM: HTN and AZ (silent AZ) : : Chronic renal Insufficiency GI: GI: GERD Metabolic: Metabolic: DM, Hyperlipidemia, Morbid obesity and Thyroid Musc/skel: Musc/skel: Fibromyalgia and Lower Back Pain Neuropsych: Neuropsych: Neuropathy and None reported Comments: RSD (b/l legs and R arm) - states she's ok with getting BP cuff on right arm Anesthetic Plan: ASA status: 3 Anesthesia: General Risk of > 500 ml blood loss (7ml/kg in children): No PFSH Anesthesia PFSH: Medical History Cataract COPD (chronic obstructive pulmonary disease) Diabetes 1.5, managed as type 2 Diabetic neuropathy Glaucoma Morbid obesity Neuropathy Peripheral vascular disease Reflex sympathetic dystrophy Smoker Venous stasis dermatitis Surgical History H/O: hysterectomy History of cholecystectomy History of thyroidectomy Family History Father No problems noted. Mother Cancer Other Diabetes Social History Smoking and tobacco status: current every day smoker cigarettes Packs smoked per day: 2 Years cigarettes smoked: 45 Quit status (tobacco): considering quitting Second hand smoke exposure: Yes Alcohol intake: never History of recent travel: No Data Anesthesia Other Labs: Laboratory Results - last 48 hr 06/21/20 06:22 POC Glucose 167 Cardiac Studies: No Data to Display
[2020-06-21] MEDS: lactated ringers 1,000 ML 30 ML IV (06:35)
--- NOTE | 2020-06-21 06:45 | W.PM.OPSUD ---
Surgery/Procedure H&P Update DATE OF PROCEDURE: June 21, 2020 DATE H&P PERFORMED: 06/06/20 H&P UPDATE INFORMATION: I have reviewed H&P completed within last 30 days, I have examined patient prior to procedure and No changes to prior documentation PREOP DIAGNOSIS: Left thyroid nodule in patient who requests completion thyroidectomy PRIMARY INDICATION FOR PROCEDURE: Left thyroid nodule in patient who requests completion thyroidectomy PLANNED PROCEDURE: Operation Date: 06/21/20 07:00 Proposed Procedures p Hemithyroidectomy poss total thyroidectomy(Left) - Erick Romero MD
[2020-06-21] MEDS: clindamycin 600 MG/50 ML PREMIX 100 MG IV (07:09)
[2020-06-21] MEDS: clindamycin 600 MG/50 ML PREMIX 100 MG XX (07:58)
[2020-06-21] MEDS: EPINEPHrine 1 mg/mL INJ (07:59)
[2020-06-21] MEDS: thrombin 5,000 unit SDV 5000 UNIT (09:05)
[2020-06-21] MEDS: dexamethasone 4 mg/mL INJ XX (09:30)
[2020-06-21] MEDS: fluorescein 1 mg Strip 3 MG (09:54)
--- NOTE | 2020-06-21 10:14 | PM.OP ---
Operative Report Date of procedure: June 21, 2020 Pre-op Diagnosis: Left thyroid nodule in patient who requests completion thyroidectomy Post-op diagnosis: same Post-op Findings: Extensive post surgical changes of the thyroid bed Large, Goitrous left thyroid lobe Left recurrent laryngeal nerve identified and preserved Left Parathyroid X 2 identified and preserved in-situ Procedure Done: Left ankita/completion thyroidectomy Implants: None Specimens removed/disposition: Left thyroid lobe Pathology: Left thyroid lobe Surgeon: Erick Romero Molded Goods Inspector Trimmer: Rj Jackson Anesthesia: General Estimated blood loss (mL): 100 IV fluids (mL): 1,400 Complications: None Findings: Extensive post surgical changes of the anterior neck Large, goitrous left thyroid lobe Left recurrent laryngeal nerve identified and preserved in place Parathyroid glands X 2 identified and preserved in-situ Condition: stable Disposition: ICU Brief History: 59 yo wf with a h/o right hemithyroidectomy now with a large left thyroid lobe nodule who desires left ankita/completion thyroidectomy. Procedure: The patient was identified in the preoperative holding area was taken to the operating where she was placed on the operating table in the supine position. Anesthesia was obtained with general endotracheal anesthesia with the Nirvana nerve monitoring endotracheal tube. The previously made incision was drawn out with a marking pen and was injected with local anesthesia. The patient was then prepped and draped in the usual sterile fashion. The incision was then made with a 15 blade and was carried down through the subcutaneous fat and soft tissues using electrocautery and the harmonic scalpel. The dissection proceeded in the midline until the airway was identified to palpation. The left thyroid lobe was then dissected free from the surrounding tissues and the Latty retractor was placed in the wound. Using the Nirvana nerve monitoring hemostat, the left thyroid lobe was sequentially dissected free from the left thyroid bed while preserving the superior and inferior parathyroids in place. The left lobe was then rotated medially as the dissection proceeded and finally the left recurrent laryngeal nerve was identified both visually electrically and preserved in place. Once this was accomplished the wound was irrigated with a copious amount of normal saline and the wound was inspected for hemostasis which was found to be adequate. Thrombin and Decadron soaked Gelfoam was then placed in the wound over the recurrent laryngeal nerve and a TLS drain was placed in the wound. The wound was then closed in layers with 4-0 and 5-0 Monocryl sutures and Dermabond and Steri-Strips were placed on the skin. Once this was accomplished, the procedure was terminated and control of the patient was returned to anesthesia where she underwent an uneventful reversal of anesthesia and extubation was taken to the intensive care unit in stable condition. There were no operative or anesthetic complications.
--- NOTE | 2020-06-21 10:30 | PM.PACU ---
PACU note Post-Anesthesia Exam: awake and vital signs stable Disposition: admitted
--- NOTE | 2020-06-21 10:31 | PC.NURSE ---
TO ICU AT 1011 VIA BED, ACCOMPANIED BY OR STAFF AND MD. BP ELEVATED, OTHERWISE VSS. PATIENT STILL SEDATED. TSL DRAIN AND STERI STRIPS INTACT. PATIENT ON 6L SIMPLE MASK, SAT 95%. REPORT TAKEN FROM OR STAFF AND ANESTHESIA.
[2020-06-21] MEDS: lactated ringers 1,000 ML 100 ML IV ×2 (11:33→21:34)
[2020-06-21 12:19] LABS: Calcium 10.2 mg/dL (8.5-10.5)
[2020-06-21] MEDS: albuterol 8 gm MDI 2 PUFF INHALATION ×2 (13:39→20:14)
[2020-06-21 14:11] LABS: Glucose Point of Care 339 mg/dL (70-110)
[2020-06-21] MEDS: ondansetron 2 mg/ML SDV 2 mL 4 MG IVP (15:09)
[2020-06-21 17:08] LABS: Glucose Point of Care 281 mg/dL (70-110)
[2020-06-21] MEDS: topiramate 100 mg Tablet PO (17:59)
[2020-06-21] MEDS: docusate sodium 100 mg Capsule PO (17:59)
[2020-06-21] MEDS: methadone 10 mg Tablet PO (17:59)
[2020-06-21] MEDS: scopolamine 1.5 Patch 1 PATCH TRANSDERMA (18:01)
--- NOTE | 2020-06-21 20:22 | P.PN_ITS ---
Subjective Subjective: Interval history: 59 yo wf who is night of surgery s/p left ankita/completion thyroidectomy who reports that she is doing well. Her voice is unchanged from preop. She is o/w without c/o. Vitals/I&O/Wt Last Vital Signs Temp 97.2 F L 06/21/20 06:20 Pulse 78 06/21/20 20:14 Resp 15 06/21/20 20:14 BP 135/58 06/21/20 19:25 Pulse Ox 96 06/21/20 20:14 06/21/20 06/21/20 06/21/20 06:59 14:59 22:59 Intake Total 1500 / 1500 235 / 1735 Output Total 400 / 400 785 / 1185 Balance 1100 / 1100 -550 / 550 Weight last 48 hrs Weight 127.459 kg Weight 127.459 kg Physical Exam HENMT: COMMON NORMALS: normocephalic and Normal external nose present HEAD & SCALP: normocephalic NOSE: Normal external nose present Eye: COMMON NORMALS: conjunctivae normal and no scleral icterus CONJUNCTIVA: Yes conjunctivae normal Neck/C-Spine: COMMON NORMALS: no lymphadenopathy GENERAL: Yes normal visual inspection THYROID: other (Neck wound intact without erythema, induration, or fluctuance) Lymph: LYMPHATIC: no lymphadenopathy noted Resp: COMMON NORMALS: normal respiratory effort, No retractions and clear to auscultation bilaterally AUSCULTATION: clear to auscultation bilaterally Cardio: COMMON NORMALS: regular rate and No murmurs present (Cardio) RATE: regular rate GI: COMMON NORMALS: Normal to inspection, nondistended, normoactive bowel sounds present Extremity: COMMON NORMALS: normal to inspection GENERAL: Yes normal exam except as noted Neuro: SPEECH: speech normal Skin: COMMON NORMALS: no rashes or lesions noted GENERAL SKIN EXAM: no rashes or lesions noted Urinary Catheter Management^: Nelson: Cath Placed During This Visit: yes Urinary Catheter Date of Insertion: 06/21/20 Urinary Catheter Time of Insertion: 07:35 Data Other Labs: I reviewed the patient's post op PTH and Calcium levels. A&P Additional A&P Information Impression: 1) Night of surgery s/p left ankita/completion thyroidectomy doing well from this standpoint 2) Elevated serum PTH and Calcium levels - possible parathyroid adenoma Plan: 1) Overnight ICU observation; continue TLS drain; anticipate d/c in the am 2) I will investigate this further as an outpatient Attestations Medical Necessity Statement*: The patient requires overnight observation of her airway. Coding Level of Care Code Acute Planing Machine Operator for Jossy Robbins
[2020-06-21] MEDS: atorvastatin 40 mg Tablet 20 MG PO (21:33)
[2020-06-21] MEDS: bisacodyl 5 mg Tablet 15 MG PO (21:33)
[2020-06-21] MEDS: citalopram 20 mg Tablet 40 MG PO (21:33)
--- NOTE | 2020-06-21 22:27 | PC.NURSE ---
called and spoke with Dr Muhammad, states will stop insulin drip, wait two hours, draw another BMP and then begin subq insulin, states she will place orders for KCL PO of 40mEq
--- NOTE | 2020-06-21 23:28 | PC.NURSE ---
drained 10ml of blood from TLS drain
[2020-06-22] VITALS: BP 140/58; PULSE 72; RESP 16; O2SAT 96
[2020-06-22 00:05] VITALS: BP 140/58; PULSE 73; RESP 16; O2SAT 95
[2020-06-22 00:10] VITALS: BP 140/58; PULSE 72; RESP 19; O2SAT 96
[2020-06-22 00:15] VITALS: BP 140/58; PULSE 90; RESP 12; O2SAT 85
[2020-06-22 00:20] VITALS: BP 140/58; PULSE 78; RESP 19; O2SAT 94
--- NOTE | 2020-06-22 04:35 | P.PN_ITS ---
Subjective Subjective: Interval history: 59 yo wf who is POD #1 s/p left ankita/completion thyroidectomy. The patient reports that she is doing well, and has no other c/o. She is eating and going to the bathroom without difficulty. Vitals/I&O/Wt Last Vital Signs Temp 97.2 F L 06/21/20 06:20 Pulse 78 06/22/20 00:20 Resp 19 H 06/22/20 00:20 BP 140/58 06/22/20 00:20 Pulse Ox 94 06/22/20 00:20 06/21/20 06/21/20 06/22/20 14:59 22:59 06:59 Intake Total 1500 / 1500 1235 / 2735 Output Total 400 / 400 1285 / 1685 Balance 1100 / 1100 -50 / 1050 Weight last 48 hrs Weight 127.459 kg Weight 127.459 kg Physical Exam Const: COMMON NORMALS: no acute distress and patient oriented x3 HENMT: COMMON NORMALS: normocephalic and external ears normal HEAD & SCALP: normocephalic EXTERNAL EAR: Yes external ears normal Eye: COMMON NORMALS: EOMs intact bilaterally, conjunctivae normal and no scleral icterus CONJUNCTIVA: Yes conjunctivae normal Neck/C-Spine: COMMON NORMALS: no lymphadenopathy GENERAL: Yes other (The neck incision is intact, without fluctuance or erythema) Lymph: LYMPHATIC: no lymphadenopathy noted Chest: COMMONS NORMALS: normal inspection of the chest Resp: COMMON NORMALS: normal respiratory effort EFFORT & INSPECTION: Yes able to speak in complete sentences and Yes other (The patient's voice is unchanged from preop.) Cardio: COMMON NORMALS: regular rate, regular rhythm and No murmurs present (Cardio) RATE: regular rate RHYTHM: regular rhythm GI: COMMON NORMALS: Normal to inspection, nondistended, normoactive bowel sounds present Extremity: COMMON NORMALS: normal to inspection Neuro: COMMON NORMALS: patient oriented x3 and CN's II-XII intact bilaterally Skin: COMMON NORMALS: no rashes or lesions noted GENERAL SKIN EXAM: no rashes or lesions noted Urinary Catheter Management^: Nelson: Cath Placed During This Visit: yes Urinary Catheter Date of Insertion: 06/21/20 Urinary Catheter Time of Insertion: 07:35 A&P Additional A&P Information Impression: 1) POD #1 s/p left ankita/completion thyroidectomy doing well from this standpoint 2) Elevated PTH level Plan: 1) D/C to home; the patient is to resume her preop medications; [place] (5/325) tabs: take 1 tab po Q5 hours prn severe pain, #20, NR; change vacutainer tubes on TLS drain once daily; f/u in Dr. Romero's office on 06/24/20 @ 1300 hours; contact Dr. Romero for any problems 2) We will evaluate further as an outpatient Attestations Medical Necessity Statement*: The patient required overnight observation of her airway Coding Level of Care Code Acute Pasta Press Operator for Danielg Itzel
--- NOTE | 2020-06-22 06:59 | PC.NURSE ---
Report given to GRACIELA De Oliveira in SBAR format
[2020-06-22 08:12] LABS: Glucose Point of Care 298 mg/dL (70-110)
[2020-06-22] MEDS: montelukast sodium 10 mg Tablet PO (08:50)
[2020-06-22] MEDS: topiramate 100 mg Tablet PO (08:50)
[2020-06-22] MEDS: docusate sodium 100 mg Capsule PO (08:50)
[2020-06-22] MEDS: bumetanide 1 mg Tablet 2 MG PO (08:51)
[2020-06-22] MEDS: levothyroxine 112 mcg Tablet PO (08:51)
[2020-06-22] MEDS: methadone 10 mg Tablet PO (08:51)
[2020-06-22] MEDS: tizanidine 4 mg Tablet PO (08:51)
[2020-06-22] MEDS: hyDROXYzine 25 mg Capsule PO (08:55)
--- NOTE | 2020-06-22 09:36 | PC.NURSE ---
PT TO BE DISCHARGED HOME, NOTIFIED & WILL BE HERE TO TRANSPORT HOME PT INSTRUCTED ON HOW TO CHANGE TLS VACUTAINER, VERBALIZED S/SX OF INFECTION. CATH REMOVED, UP TO BSC. PIID REMOVED. PT HAS PAIN MEDICINE AT HOME. DOES NOT WANT [facility]CO FILLED D/T HAS MEDS AT HOME.
--- NOTE | 2020-06-22 18:21 | PC.RESP ---
Smoking Cessation and Pulmonary Rehab packets sent to patient.
== END 2020-06-22 10:00 | disposition home or self-care (01) ==
LOC: ICU 06-22 04:48
PROVIDERS: Admitting Provider Specialist; PCP Internal Medicine; Visit Provider Specialist
PROC: (CPT 60240; principal; 2020-06-21 07:00)
DX: E04.1 Nontoxic single thyroid nodule (principal); J44.9 Chronic obstructive pulmonary disease, unspecified; Z99.81 Dependence on supplemental oxygen; G47.30 Sleep apnea, unspecified; I10 Essential (primary) hypertension; I25.2 Old myocardial infarction; E78.5 Hyperlipidemia, unspecified; E66.01 Morbid (severe) obesity due to excess calories; Z68.42 Body mass index [BMI] 45.0-49.9, adult; E11.40 Type 2 diabetes mellitus with diabetic neuropathy, unspecified; F17.210 Nicotine dependence, cigarettes, uncomplicated
CPT/HCPCS: 60240; 12345; 36415; 36416; 51702; 82310; 82962; 83970; 88307; 94640; 94664; 96360; 96361; 96372; 96375; G0378; J0171; J1100; J1170; J1815; J1885; J2250; J2405; J2704; J3010; J3490; J3535

== ENCOUNTER → 2020-07-14 13:50 | Outpatient (BNVA) | payer MEDICARE, SELFPAY | PROVIDERS: PCP Internal Medicine; Visit Provider Internal Medicine | DX: C73 Malignant neoplasm of thyroid gland (principal); E13.22 Other specified diabetes mellitus with diabetic chronic kidney disease; N18.4 Chronic kidney disease, stage 4 (severe); E13.9 Other specified diabetes mellitus without complications; Z79.4 Long term (current) use of insulin; E21.3 Hyperparathyroidism, unspecified; E78.5 Hyperlipidemia, unspecified; E89.0 Postprocedural hypothyroidism | CPT/HCPCS: 99214 ==

== ENCOUNTER 2020-07-14 14:34 | Outpatient (CLI) | payer MEDICARE, SELFPAY ==
[2020-07-14 15:31] LABS: Estmated Average Glucose 212
[2020-07-14 16:14] LABS: Chol HDL Ratio 4.95 mg/dL (0.0-4.40); Cholesterol 188 mg/dL (0-200); Free T4 Free Thyroxine 0.83 ng/dL (0.82-1.77); HDL Cholesterol 38 mg/dL (60-100); LDL Cholesterol Calculated 96 mg/dL (50-129); LDL HDL Ratio 2.53 RATIO (0.00-3.22); Thyroid Stimulating Hormone 5.17 uIU/mL (0.27-4.20); Triglycerides 270 mg/dL (0-150)
== END 2020-07-14 14:35 | disposition home or self-care (01) ==
LOC: LAB 14:44
PROVIDERS: PCP Internal Medicine; Visit Provider Internal Medicine
DX: E13.9 Other specified diabetes mellitus without complications (principal); E78.5 Hyperlipidemia, unspecified; E89.0 Postprocedural hypothyroidism; Z79.4 Long term (current) use of insulin
CPT/HCPCS: 36415; 80061; 83036; 84439; 84443

== ENCOUNTER 2020-08-12 17:14 | Emergency (ER) | payer MEDICARE, SELFPAY ==
[2020-08-12 17:17] VITALS: BP 152/63; PULSE 69; RESP 17; TEMP 36.5; O2SAT 94; BMI 46.7
--- NOTE | 2020-08-12 17:28 | XRR_ITS ---
PROCEDURE INFORMATION: Exam: XR Right Hip with Pelvis when Performed Exam date and time: 08/12/2020 5:35 PM Age: 59 years old Clinical indication: Hip pain; Right hip TECHNIQUE: Imaging protocol: XR Right hip with pelvis when performed. Views: 1 view. COMPARISON: CT abdomen pelvis wo con [id number] 05/12/2019 5:25 PM FINDINGS: Bones/joints: The bones appear intact and in normal alignment. Soft tissues: Unremarkable. Other findings: The images are under penetrated due to the patient's large body habitus. XR/XR hip RT 2-3V wo/w pel* [id number] IMPRESSION: 1. No acute finding.
--- NOTE | 2020-08-12 17:51 | ED_ITS ---
HPI - Extremity Problem General: Chief complaint: Extremity Injury, Lower Stated complaint: R HIP PAIN Time Seen by Provider: 08/12/20 17:15 History of Present Illness: HPI Narrative: Patient arrived via ambulance complain about right hip pain. Patient states she was sitting down her chair yesterday and she felt a pop as she was sitting down. She is able ambulate all throughout the day telehealth visit with Dr. Bolaños got some pain medicine. She said it continues to hurt. Complaint: extremity pain Onset (ago): day(s) Pain Consistency: constant Location: right Severity scale (1-10): 4 Quality: aching Radiation: none Relieving factors: immobilization Exacerbating factors: range of motion Associated symptoms: Reports no associated symptoms; Deny chest pain, fever(s) or rash Review of Systems Const: Denies: fever(s), chills or body aches Eyes: Denies: change in vision or blurry vision ENMT: Denies: throat pain or nasal congestion Card: Denies: chest pain or dyspnea on exertion Resp: Denies: dyspnea, productive cough or non-productive cough GI: Denies: abdominal pain, nausea or vomiting Musc: Reports: extremity pain (Right hip groin area) Skin/Breast: Denies: rash Neuro: Denies: headache(s) Psych: Denies: anxiety or depression Justin/Lymph: Denies: easy bruising PFSH ED PFSH: Medical History (Updated 08/12/20 @ 17:50 by JEAN-PAUL Martinez) Cataract COPD (chronic obstructive pulmonary disease) Diabetes 1.5, managed as type 2 Diabetic neuropathy Glaucoma Morbid obesity Neuropathy Peripheral vascular disease Reflex sympathetic dystrophy Smoker Venous stasis dermatitis Surgical History H/O: hysterectomy History of cholecystectomy History of thyroidectomy Family History Father No problems noted. Mother Cancer Other Diabetes Social History Smoking and tobacco status: current every day smoker cigarettes Packs smoked per day: 2 Years cigarettes smoked: 45 Quit status (tobacco): considering quitting Second hand smoke exposure: Yes Alcohol intake: never History of recent travel: No Physical Exam Const: COMMON NORMALS: no acute distress Extremity: RIGHT LOWER EXTREMITY: Yes hip joint (Pain with range of motion hurts more in the groin area no swelling is able ) Psych: COMMON NORMALS: mental status grossly normal Course Vital Signs: Vital signs: Vital Signs Temperature 97.7 F 08/12/20 17:17 Pulse Rate 69 08/12/20 17:17 Respiratory Rate 17 08/12/20 17:17 Blood Pressure 152/63 08/12/20 17:17 Pulse Oximetry 94 08/12/20 17:17 Discharge Plan Discharge Patient Disposition: Home Clinical Impression: Muscle strain Condition: Stable Prescriptions: No Action true metrix glucometer See Rx Instructions .ROUTE .COMPLEX Qty: 1 RF: 0 methadone 10 mg tablet 10 mg PO BID 30 Days Qty: 60 RF: 0 pregabalin [Lyrica] 100 mg capsule 100 mg PO BID Qty: 60 RF: 5 citalopram [Celexa] 40 mg tablet 40 mg PO BEDTIME RF: 0 tizanidine [Zanaflex] 4 mg capsule 4 mg PO Q6H PRN (Reason: Muscle Spasm) RF: 0 albuterol sulfate [Ventolin HFA] 90 mcg/actuation HFA aerosol inhaler 2 puff INHALATION Q4H PRN (Reason: shortness of breath) Qty: 18 RF: 6 (DME) FreeStyle Larry 14 Day [place] Misc See Rx Instructions .ROUTE .MEDSUPPLY Qty: 1 RF: 0 (DME) FreeStyle Larry 14 Day Sensor Kit See Rx Instructions .ROUTE .MEDSUPPLY Qty: 6 RF: 3 bumetanide 2 mg tablet 2 mg PO DAILY Qty: 90 RF: 3 (DME) Blood Glucose Test Strip See Rx Instructions .ROUTE .MEDSUPPLY Qty: 100 RF: 12 (DME) blood sugar diagnostic Strip See Rx Instructions .ROUTE .MEDSUPPLY Qty: 100 RF: 11 topiramate [Topamax] 100 mg tablet 100 mg PO BID Qty: 60 RF: 3 omeprazole 40 mg capsule,delayed release(DR/EC) 40 mg PO BID Qty: 60 RF: 3 simvastatin 20 mg tablet 20 mg PO BEDTIME Qty: 90 RF: 3 (DME) Blood Glucose Test Strip See Rx Instructions .ROUTE .MEDSUPPLY Qty: 100 RF: 0 Relistor 150 mg tablet 150 mg PO QAM Qty: 90 RF: 1 montelukast 10 mg tablet 10 mg PO DAILY Qty: 90 RF: 0 levothyroxine 137 mcg tablet 137 mcg PO DAILY Qty: 1 RF: 3 nifedipine 10 mg capsule 10 mg PO DAILY Qty: 30 RF: 3 amlodipine [Norvasc] 5 mg tablet 5 mg PO DAILY Qty: 30 RF: 0 hydroxyzine HCl 25 mg tablet 25 mg PO Q4H PRN (Reason: Allergic Symptoms) Qty: 120 RF: 3 Humulin R U-500 (Conc) Kwikpen 500 unit/mL (3 mL) insulin pen 100 unit SUBCUT TIDWMEAL 90 Days Qty: 54 RF: 3 aspirin 81 mg Tablet,Delayed Release (Dr/Ec) 81 mg PO BID RF: 0 bisacodyl [Dulcolax (bisacodyl)] 5 mg Tablet,Delayed Release (Dr/Ec) 15 mg PO BEDTIME RF: 0 [place] 5-325 mg tablet 1 tab PO Q6H PRN (Reason: pain) Qty: 20 RF: 0 prochlorperazine maleate 10 mg tablet 10 mg PO BID PRN (Reason: Nausea) RF: 0 alprazolam [Xanax] 0.25 mg tablet 0.25 mg PO DAILY PRN (Reason: Anxiety) RF: 0 Discharge Orders: Discharge ED (Routine); Ordered 08/12/20 Ordered By: Andrew Verma Referrals: Donald Bolaños MD [Primary Care Provider] - Discharge Diet: Usual diet Discharge Activity: Increase activity as tolerated Patient Instructions: Muscle Strain (ED), Groin Strain (ED) Activity Restrictions/Additional Instructions: Follow-up your family medical provider as directed. Apply moist heat to help with discomfort. Increase range of motion as often as possible. Take your medicines you are have prescribed. Coding Level of Care Code ED Is Project Manager for Jossy Robbins
== END 2020-08-12 18:21 | disposition home or self-care (01) ==
LOC: ER 18:05
PROVIDERS: Emergency Provider Nurse Practitioner Family; PCP Internal Medicine
DX: S76.011A Strain of muscle, fascia and tendon of right hip, initial encounter (principal); Z79.82 Long term (current) use of aspirin; Z79.4 Long term (current) use of insulin; X58.XXXA Exposure to other specified factors, initial encounter; J44.9 Chronic obstructive pulmonary disease, unspecified; E13.40 Other specified diabetes mellitus with diabetic neuropathy, unspecified; F17.210 Nicotine dependence, cigarettes, uncomplicated
CPT/HCPCS: 12345; 73502; 99281; 99282

== ENCOUNTER → 2020-08-16 11:03 | Outpatient (BNVA) | payer MEDICARE, SELFPAY | PROVIDERS: PCP Internal Medicine; Visit Provider Podiatrist Foot & Ankle Surgery | DX: L97.422 Non-pressure chronic ulcer of left heel and midfoot with fat layer exposed (principal); M79.671 Pain in right foot | CPT/HCPCS: 73630 ==

== ENCOUNTER 2020-08-22 14:33 | Outpatient (CLI) | payer MEDICARE, SELFPAY | END 2020-08-22 14:34 | disposition home or self-care (01) | LOC: WOUND 14:34 | PROVIDERS: PCP Internal Medicine; Visit Provider Nurse Practitioner Family | DX: I96 Gangrene, not elsewhere classified (principal); L89.623 Pressure ulcer of left heel, stage 3 | CPT/HCPCS: 11042; 87070; 87176; 87205; G0463; L4397 ==

== ENCOUNTER 2020-09-01 11:14 | Outpatient (CLI) | payer MEDICARE, SELFPAY | END 2020-09-01 11:15 | disposition home or self-care (01) | LOC: WOUND 11:14 | PROVIDERS: PCP Internal Medicine; Visit Provider Nurse Practitioner Family | DX: E11.621 Type 2 diabetes mellitus with foot ulcer (principal); L97.422 Non-pressure chronic ulcer of left heel and midfoot with fat layer exposed | CPT/HCPCS: 11042 ==

== ENCOUNTER 2020-09-22 11:06 | Outpatient (CLI) | payer MEDICARE, SELFPAY | END 2020-09-22 11:07 | disposition home or self-care (01) | LOC: WOUND 11:07 | PROVIDERS: PCP Internal Medicine; Visit Provider Nurse Practitioner Family | DX: I96 Gangrene, not elsewhere classified (principal); L89.623 Pressure ulcer of left heel, stage 3 | CPT/HCPCS: 11042 ==

== ENCOUNTER 2020-09-29 11:01 | Outpatient (CLI) | payer MEDICARE, SELFPAY | END 2020-09-29 11:02 | disposition home or self-care (01) | LOC: WOUND 11:03 | PROVIDERS: PCP Internal Medicine; Visit Provider Nurse Practitioner Family | DX: I96 Gangrene, not elsewhere classified (principal); L89.623 Pressure ulcer of left heel, stage 3 | CPT/HCPCS: 11042 ==

== ENCOUNTER 2020-10-20 11:04 | Outpatient (CLI) | payer MEDICARE, SELFPAY | END 2020-10-20 11:05 | disposition home or self-care (01) | LOC: WOUND 11:05 | PROVIDERS: PCP Internal Medicine; Visit Provider Nurse Practitioner Family | DX: I96 Gangrene, not elsewhere classified (principal); L89.623 Pressure ulcer of left heel, stage 3 | CPT/HCPCS: 11042 ==

== ENCOUNTER → 2020-10-24 13:34 | Outpatient (BNVA) | payer MEDICARE, SELFPAY | PROVIDERS: PCP Internal Medicine; Visit Provider Internal Medicine | DX: C73 Malignant neoplasm of thyroid gland (principal); E11.22 Type 2 diabetes mellitus with diabetic chronic kidney disease; N18.4 Chronic kidney disease, stage 4 (severe); Z79.4 Long term (current) use of insulin; E21.3 Hyperparathyroidism, unspecified; E89.0 Postprocedural hypothyroidism | CPT/HCPCS: 99215 ==

== ENCOUNTER 2020-10-24 15:22 | Outpatient (CLI) | payer MEDICARE, SELFPAY ==
[2020-10-24 17:11] LABS: Calcium 10.3 mg/dL (8.5-10.5)
[2020-10-24 17:19] LABS: Free T4 Free Thyroxine 0.86 ng/dL (0.82-1.77); Thyroid Stimulating Hormone 3.96 uIU/mL (0.27-4.20)
[2020-10-24 17:28] LABS: Estmated Average Glucose 206; Hemoglobin A1C 8.8 % (4.0-6.0)
[2020-10-24 23:01] LABS: Parathyroid Hormone 309.3 pg/mL (15-65)
== END 2020-10-24 15:23 | disposition home or self-care (01) ==
PROVIDERS: PCP Internal Medicine; Visit Provider Internal Medicine
DX: E13.9 Other specified diabetes mellitus without complications (principal); E21.3 Hyperparathyroidism, unspecified; Z79.4 Long term (current) use of insulin
CPT/HCPCS: 82310; 83036; 83970; 84439; 84443

== ENCOUNTER 2020-10-27 10:57 | Outpatient (CLI) | payer MEDICARE, SELFPAY | END 2020-10-27 10:58 | disposition home or self-care (01) | LOC: WOUND 10:58 | PROVIDERS: PCP Internal Medicine; Visit Provider Nurse Practitioner Family | DX: I96 Gangrene, not elsewhere classified (principal); L89.623 Pressure ulcer of left heel, stage 3 | CPT/HCPCS: 11042; L3260 ==

== ENCOUNTER 2020-11-03 11:06 | Outpatient (CLI) | payer MEDICARE, SELFPAY | END 2020-11-03 11:07 | disposition home or self-care (01) | LOC: WOUND 11:07 | PROVIDERS: PCP Internal Medicine; Visit Provider Nurse Practitioner Family | DX: I96 Gangrene, not elsewhere classified (principal); L89.623 Pressure ulcer of left heel, stage 3 | CPT/HCPCS: 11042; 87070; 87176; 87205 ==

== ENCOUNTER 2020-11-07 15:22 | Outpatient (CLI) | payer MEDICARE, SELFPAY ==
[2020-11-08 16:47] LABS: Alternaria Alternata (M6) Ige <0.10 kU/L; Alternaria Class 0; Bermuda Class 0; Bermuda Grass (G2) Ige <0.10 kU/L; Cat Dander Class 1; Common Ragweed (Short) (W1) Ig <0.10 kU/L; D. Farinae Class 0; Dermatophagoides Class 0; Dermatophagoides Farinae (D2) <0.10 kU/L; Dermatophagoides Pteronyssinus <0.10 kU/L; Dog Dander (E5) Ige <0.10 kU/L; Dog Dander Class 0; Elm (T8) Ige <0.10 kU/L; Elm Class 0; English Plantain (W9) Ige <0.10 kU/L; English Plantain Class 0; House Dust (Hollister- Stier) <0.10 kU/L; House Dust Class 0; House Dust Class 0/1; Immunoglobulin E 206 kU/L (<OR=114); Johnson Grass (G10) Ige <0.10 kU/L; Johnson Grass Cl 0; June Grass Class 0; June Grass(Kentucky Blue) (G8) <0.10 kU/L; Lamb'S Quarters (Goose Foot) <0.10 kU/L; Lamb'S Quarters Class 0; Maple (Box Elder) (T1) Ige <0.10 kU/L; Maple Class 0; Meadow Fescue (G4) Ige <0.10 kU/L; Meadow Fescue Class 0; Mucor Racemosus Class 0; Oak (T7) Ige <0.10 kU/L; Oak Class 0; Orchard Grass (Cocksfoot) (G3) <0.10 kU/L; Penicillium Class 0; Penicillium Notatum (M1) Ige <0.10 kU/L; Perennial Rye Grass (G5) Ige <0.10 kU/L; Perennial Rye Grass Class 0; Ragweeed Class 0; Rough Marsh Elder (W16) Ige <0.10 kU/L; Rough Marsh Elder Class 0; Sweet Vernal Class 0; Sweet Vernal Grass (G1) Ige <0.10 kU/L; Timothy Grass (G6) Ige <0.10 kU/L; Timothy Grass Class 0
[2020-11-09 18:12] LABS: Aspergillus Fumigatus, Igg Ab, 23.1 mg/L (<=102)
== END 2020-11-07 15:23 | disposition home or self-care (01) ==
PROVIDERS: PCP Internal Medicine; Visit Provider Specialist
DX: J30.9 Allergic rhinitis, unspecified (principal)
CPT/HCPCS: 82785; 86003

== ENCOUNTER 2020-11-10 11:05 | Outpatient (CLI) | payer MEDICARE, SELFPAY | END 2020-11-10 11:06 | disposition home or self-care (01) | LOC: WOUND 11:06 | PROVIDERS: PCP Internal Medicine; Visit Provider Nurse Practitioner Family | DX: I96 Gangrene, not elsewhere classified (principal); L89.623 Pressure ulcer of left heel, stage 3 | CPT/HCPCS: 11042 ==

== ENCOUNTER 2020-11-24 11:16 | Outpatient (CLI) | payer MEDICARE, SELFPAY | END 2020-11-24 11:17 | disposition home or self-care (01) | LOC: WOUND 11:19 | PROVIDERS: PCP Internal Medicine; Visit Provider Nurse Practitioner Family | DX: I96 Gangrene, not elsewhere classified (principal); L89.623 Pressure ulcer of left heel, stage 3; F17.210 Nicotine dependence, cigarettes, uncomplicated | CPT/HCPCS: 11042 ==

== ENCOUNTER 2020-12-08 11:09 | Outpatient (CLI) | payer MEDICARE, SELFPAY | END 2020-12-08 11:10 | disposition home or self-care (01) | LOC: WOUND 11:11 | PROVIDERS: PCP Internal Medicine; Visit Provider Nurse Practitioner Family | DX: I96 Gangrene, not elsewhere classified (principal); L89.623 Pressure ulcer of left heel, stage 3 | CPT/HCPCS: 11042 ==

== ENCOUNTER 2020-12-18 13:05 | Emergency (ER) | payer MEDICARE, SELFPAY ==
--- NOTE | 2020-12-18 13:11 | XRR_ITS ---
PROCEDURE INFORMATION: Exam: XR Chest Exam date and time: 12/18/2020 1:31 PM Age: 60 years old Clinical indication: COPD. Dyspnea. TECHNIQUE: Imaging protocol: XR of the chest. Views: 2 views. COMPARISON: CR XR chest 1V portable [id number] 05/11/2020 12:36 PM FINDINGS: Lungs: There is mild peribronchial wall thickening. No pulmonary consolidation. Pleural spaces: No pleural effusion. No pneumothorax. Heart/Mediastinum: The cardiac silhouette is unchanged. No gross evidence of pneumomediastinum. Bones/joints: Mild rightward curvature of the thoracic spine. No gross fracture. XR/XR chest 2V* [id number] IMPRESSION: 1. There is mild peribronchial wall thickening; query viral infection/bronchitis, chronic bronchitis and/or asthma. 2. Stable cardiomegaly.
[2020-12-18 13:19] VITALS: BP 169/74; PULSE 79; RESP 18; TEMP 36.9; O2SAT 95; BMI 46.7
--- NOTE | 2020-12-18 13:42 | ECG_ITS ---
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
[2020-12-18 14:17] LABS: ABG PCO2 47.1 mmHg (35-45); Arterial Blood Gas Hematocrit 38.9 % (37-47); Base Excess ABG -3.3 mmol/L (-2.0-2.0); Blood Gas Allen Test Pos; Blood Gas Operator Identificat CAK; Blood Gas Sample Site Radial, left; Blood Gas Sample Type Arterial; Carboxyhemoglobin 6.6 %THgb (0.4-20.1); HCO3 ABG 23.3 mmol/L (22-26); HGB O2 Sat 83.4 % (95-100); Methemoglobin 0.4 % (0.4-1.5); Oxygen Device NC; PO2 ABG 54.3 mmHg (80.0-100.0); Total Hemoglobin 12.7 g/dL (12-16)
[2020-12-18 14:26] LABS: Basophils # 0.1 10^3/uL (0.0-0.1); Eosinophils # 0.6 10^3/uL (0.0-0.8); Eosinophils % 5.1 %; Hematocrit 45.5 % (37.0-47.0); Hemoglobin 13.3 g/dL (11.5-15.3); Lymphocytes # 2.3 10^3/uL (0.8-4.8); Lymphocytes % 19.9 %; Mean Corpuscular HGB Conc 29.2 g/dL (30.0-36.0); Mean Corpuscular Hemoglobin 22.3 pg (28.0-34.0); Mean Corpuscular Volume 76.2 fL (81-99); Monocytes % 8.6 %; Neutrophils # 7.43 10^3/uL (1.8-7.7); Neutrophils % 64.9 %; Nucleated Red Blood Cells % 0 %; Platelet Count 253 10^3/cmm (130-400); Red Blood Count 5.97 10^6/uL (4.1-5.3); Red Cell Distribution Width 18.8 % (12.1-15.1); White Blood Count 11.5 10^3/uL (4.0-10.0)
[2020-12-18 14:40] LABS: Troponin T (5th) Once 37 ng/L (0-10)
[2020-12-18 14:49] LABS: Alanine Aminotransferase 13 U/L (0-33); Albumin Level 4.3 g/dL (3.5-5.2); Alkaline Phosphatase 140 IU/L (35-105); Anion Gap 16.8 (5-19); Aspartate Amino Transferase 15 U/L (0-32); Blood Urea Nitrogen 27 mg/dL (8-23); Calcium 10.2 mg/dL (8.5-10.5); Carbon Dioxide 25 mmol/L (22-29); Chloride 102 mmol/L (98-107); Globulin 2.6 g/dL (1.3-4.6); Glomerular Filtration Rate 38.2 mL/min (90-130); Glucose 263 mg/dL (65-115); NT Pro B Type Natriuretic Pept 116 pg/mL (0-125); Osmolality Calculated 302 mOsm/kg (285-295); Potassium 4.8 mmol/L (3.5-5.1); Sodium 139 mmol/L (136-145); Total Bilirubin 0.4 mg/dL (0.15-1.2); Total Protein 6.9 g/dL (6.6-8.7)
[2020-12-18 15:00] VITALS: PULSE 75; RESP 18; O2SAT 94
[2020-12-18 15:03] VITALS: PULSE 72
[2020-12-18 15:13] VITALS: BP 147/55; PULSE 78; RESP 20; O2SAT 94
[2020-12-18] MEDS: levofloxacin-dextrose 5 % 500 MG/100 ML PREMIX 100 MG IV (15:37)
--- NOTE | 2020-12-18 15:37 | ED_ITS ---
HPI - SOB/Dyspnea General: Chief Complaint: Shortness of Breath/Dyspnea Stated Complaint: COPD Time Seen by Provider: 12/18/20 13:19 Source: patient Mode of arrival: ambulatory Limitations: no limitations History of Present Illness: HPI Narrative: The patient is a 60-year-old female with a history of COPD. She currently still smokes 1.5 packs of cigarettes a day. She wears oxygen at 3 L/min at night but she states that in the last 2 days she has been having worsening shortness of breath with productive cough. Today she had increased her oxygen to 4 L/min but even with that she was still having trouble breathing. Because of this she called for an ambulance and in the ambulance she was given a beta agonist breathing treatment which helped improve her symptoms. She denies any fever, she denies any sick contacts. She said she has not left her house in at least a year and does not think she has been exposed to Covid. She is refusing Covid or influenza test since she says she does not leave the house. MD elicited complaint: shortness of breath and cough Pertinent past history: COPD Onset (ago): day(s) (2) Timing: constant Severity: severe Exacerbating factors: exertion Relieving factors: bronchodilators Associated symptoms: Deny abdominal pain, chest congestion, chest pain, cough, diaphoresis, dizziness, extremity pain, fever(s), hemoptysis, lightheadedness, myalgias, nausea, orthopnea, palpitations, paresthesias, polydipsia, polyuria, rash, sense of impending doom, syncope or vomiting Treatment prior to arrival: oxygen and bronchodilator Review of Systems General: Reports: 10 or more systems reviewed and unremarkable except in HPI and below Const: Denies: fever(s) or diaphoresis Card: Denies: chest pain, palpitations, lightheadedness, syncope or orthopnea Resp: Denies: hemoptysis or chest congestion GI: Denies: abdominal pain, nausea or vomiting Musc: Denies: extremity pain Neuro: Denies: dizziness Endo: Denies: polyuria or polydipsia [facility] ED PFSH: Medical History Cataract COPD (chronic obstructive pulmonary disease) Diabetes 1.5, managed as type 2 Diabetic neuropathy Glaucoma Morbid obesity Neuropathy Peripheral vascular disease Reflex sympathetic dystrophy Smoker Venous stasis dermatitis Surgical History H/O: hysterectomy History of cholecystectomy History of thyroidectomy Family History Father No problems noted. Mother Cancer Other Diabetes Social History Smoking and tobacco status: current every day smoker cigarettes Packs smoked per day: 2 Years cigarettes smoked: 45 Quit status (tobacco): considering quitting Second hand smoke exposure: Yes Alcohol intake: never History of recent travel: No Physical Exam Const: COMMON NORMALS: no acute distress, average body habitus, patient oriented x3, no limitations, healthy appearing, alert and well nourished HENMT: COMMON NORMALS: normocephalic, atraumatic and moist oral mucous membranes HEAD & SCALP: normocephalic and atraumatic Neck/C-Spine: COMMON NORMALS: no meningeal signs and no JVD Resp: COMMON NORMALS: normal respiratory effort, No retractions, No use of accessory muscles and percussion normal AUSCULTATION: wheezes scattered w heezes and diminished lung sounds PERCUSSION: percussion normal Cardio: COMMON NORMALS: no JVD, regular rate, regular rhythm, S1 normal heart sound present, S2 normal heart sound present, No gallops present (Cardio), No clicks present (Cardio), No murmurs present (Cardio), No rub (Cardio) and Peripheral pulses 2+ throughout RATE: regular rate RHYTHM: regular rhythm HEART SOUNDS: S1 normal heart sound present and S2 normal heart sound present PERIPHERAL PULSES: Peripheral pulses 2+ throughout GI: COMMON NORMALS: Normal to inspection, nondistended, normoactive bowel sounds present, Soft to palpation, non-tender, No hepatosplenomegaly present, no masses and no bruits PALPATION: Yes Soft to palpation and Yes No hepatosplenomegaly present Extremity: COMMON NORMALS: normal to inspection, full ROM, capillary refill normal, no calf tenderness and no pedal edema Neuro: COMMON NORMALS: patient oriented x3 SENSORIUM/ORIENTATION: Yes alert MENINGEAL SIGNS: Yes no meningeal signs Skin: COMMON NORMALS: no rashes or lesions noted, no wounds, turgor normal, no jaundice, no petechiae and no mottling GENERAL SKIN EXAM: no rashes or lesions noted and turgor normal Course Reevaluation(s): Reevaluation #1: Feels about the same. Advised hospital admission as she has not made significant improvement but she declined and wants to be discharged home. We will discharge her home with a prescription for Levaquin, steroids and albuterol. She voiced understanding and all questions and all questions answered. Time: 17:38 Vital Signs: Vital signs: Vital Signs Temperature 98.4 F 12/18/20 13:19 Pulse Rate 80 12/18/20 18:04 Respiratory Rate 18 12/18/20 18:04 Blood Pressure 159/67 12/18/20 18:04 Pulse Oximetry 95 12/18/20 18:04 MDM - SOB/Dyspnea MDM Narrative: Medical decision making narrative: 60-year-old female patient w nadia presents to the emergency department with clinical features consistent with COPD exacerbation. She obtained only minimal improvement with breathing treatments and intravenous corticosteroids in the ED. Advised hospital admission for further pulmonary toilet, however she declined and wanted to be discharged home. She will return if she gets any worse. She declined a Covid test in the emergency department. As well as influenza. Lab Data: Labs: Lab Results 12/18/20 12/18/20 12/18/20 Range/Units 12:44 12:44 12:44 WBC 11.5 H (4.0-10.0) 10^3/ uL RBC 5.97 H (4.1-5.3) 10^6/u L Hgb 13.3 (11.5-15.3) g/dL Hct 45.5 (37.0-47.0) % MCV 76.2 L (81-99) fL MCH 22.3 L (28.0-34.0) pg MCHC 29.2 L (30.0-36.0) g/dL RDW 18.8 H (12.1-15.1) % Plt Count 253 (130-400) 10^3/c mm MPV 11.0 H (7.4-10.4) fL Neut % (Auto) 64.9 % Lymph % (Auto) 19.9 % Ford % (Auto) 8.6 % Eos % (Auto) 5.1 % Baso % (Auto) 1.0 % Neut # (Auto) 7.43 (1.8-7.7) 10^3/u L Lymph # (Auto) 2.3 (0.8-4.8) 10^3/u L Ford # (Auto) 1.0 H (0.2-0.9) 10^3/u L Eos # (Auto) 0.6 (0.0-0.8) 10^3/u L Baso # (Auto) 0.1 (0.0-0.1) 10^3/u L Nucleated RBC % (a uto) 0 % Nucleated RBCs # 0.0 /100WBC Specimen Type Sample Site ABG pH (7.35-7.45) ABG pCO2 (35-45) mmHg ABG pO2 (80.0-100.0) mmH g ABG HCO3 (22-26) mmol/L ABG Base Excess (-2.0-2.0) mmol/ L Darrius Test Hematocrit (37-47) % Hgb O2 Saturation (95-100) % Carboxyhemoglobin (0.4-20.1) %THgb Methemoglobin (0.4-1.5) % Total Hemoglobin (12-16) g/dL O2 Delivery Device FiO2 % Retail Pharmacy Manager ID Sodium 139 (136-145) mmol/L Potassium 4.8 (3.5-5.1) mmol/L Chloride 102 (98-107) mmol/L Carbon Dioxide 25 (22-29) mmol/L Anion Gap 16.8 (5-19) BUN 27 H (8-23) mg/dL Creatinine 1.4 H (0.5-0.9) mg/dL GFR Calculation 38.2 L (90-130) mL/min Glucose 263 H (65-115) mg/dL Calculated Osmolal ity 302 H (285-295) mOsm/k g Calcium 10.2 (8.5-10.5) mg/dL Total Bilirubin 0.4 (0.15-1.2) mg/dL AST 15 (0-32) U/L ALT 13 (0-33) U/L Alkaline Phosphata se 140 H (35-105) IU/L Troponin T Gen 5 n g/L 37 H (0-10) ng/L NT-Pro-B Natriuret Pep 116 (0-125) pg/mL Total Protein 6.9 (6.6-8.7) g/dL Albumin 4.3 (3.5-5.2) g/dL Globulin 2.6 (1.3-4.6) g/dL Procalcitonin (0-0.5) ng/mL 12/18/20 12/18/20 12/18/20 Range/Units 12:44 14:05 17:14 WBC (4.0-10.0) 10^3/ uL RBC (4.1-5.3) 10^6/u L Hgb (11.5-15.3) g/dL Hct (37.0-47.0) % MCV (81-99) fL MCH (28.0-34.0) pg MCHC (30.0-36.0) g/dL RDW (12.1-15.1) % Plt Count (130-400) 10^3/c mm MPV (7.4-10.4) fL Neut % (Auto) % Lymph % (Auto) % Ford % (Auto) % Eos % (Auto) % Baso % (Auto) % Neut # (Auto) (1.8-7.7) 10^3/u L Lymph # (Auto) (0.8-4.8) 10^3/u L Ford # (Auto) (0.2-0.9) 10^3/u L Eos # (Auto) (0.0-0.8) 10^3/u L Baso # (Auto) (0.0-0.1) 10^3/u L Nucleated RBC % (a uto) % Nucleated RBCs # /100WBC Specimen Type Arterial Sample Site Radial, left ABG pH 7.30 L (7.35-7.45) ABG pCO2 47.1 H (35-45) mmHg ABG pO2 54.3 L (80.0-100.0) mmH g ABG HCO3 23.3 (22-26) mmol/L ABG Base Excess -3.3 L (-2.0-2.0) mmol/ L Darrius Test Pos Hematocrit 38.9 (37-47) % Hgb O2 Saturation 83.4 L (95-100) % Carboxyhemoglobin 6.6 (0.4-20.1) %THgb Methemoglobin 0.4 (0.4-1.5) % Total Hemoglobin 12.7 (12-16) g/dL O2 Delivery Device Nc FiO2 32.0 % Retail Pharmacy Manager ID Cak Sodium (136-145) mmol/L Potassium (3.5-5.1) mmol/L Chloride (98-107) mmol/L Carbon Dioxide (22-29) mmol/L Anion Gap (5-19) BUN (8-23) mg/dL Creatinine (0.5-0.9) mg/dL GFR Calculation (90-130) mL/min Glucose (65-115) mg/dL Calculated Osmolal ity (285-295) mOsm/k g Calcium (8.5-10.5) mg/dL Total Bilirubin (0.15-1.2) mg/dL AST (0-32) U/L ALT (0-33) U/L Alkaline Phosphata se (35-105) IU/L Troponin T Gen 5 n g/L 36 H (0-10) ng/L NT-Pro-B Natriuret Pep (0-125) pg/mL Total Protein (6.6-8.7) g/dL Albumin (3.5-5.2) g/dL Globulin (1.3-4.6) g/dL Procalcitonin 0.09 (0-0.5) ng/mL Imaging Data^: CXR: Attestation: I personally reviewed and interpreted this imaging study as follows: Radiologist's impression: [address] [address] XRay Report Signed Patient: Marion Stuart #: [id number] : 1960Acct#:[id number] Age/Sex: 60 / FADM Date: 12/18/20 Loc: ERRoom/Bed: Attending Dr: Ordering Provider/Ordering MD: Bela Gomez Date of Service: 12/18/20 Procedure(s): XR chest 2V* [id number] Accession Number(s): [id number] Report Number: [id number] PROCEDURE INFORMATION: Exam: XR Chest Exam date and time: 12/18/2020 1:31 PM Age: 60 years old Clinical indication: COPD. Dyspnea. TECHNIQUE: Imaging protocol: XR of the chest. Views: 2 views. COMPARISON: CR XR chest 1V portable [id number] 05/11/2020 12:36 PM FINDINGS: Lungs: There is mild peribronchial wall thickening. No pulmonary consolidation. Pleural spaces: No pleural effusion. No pneumothorax. Heart/Mediastinum: The cardiac silhouette is unchanged. No gross evidence of pneumomediastinum. Bones/joints: Mild rightward curvature of the thoracic spine. No gross fracture. XR/XR chest 2V* [id number] IMPRESSION: 1. There is mild peribronchial wall thickening; query viral infection/bronchitis, chronic bronchitis and/or asthma. 2. Stable cardiomegaly. Dictated By:Reji Danielle Signed By:Odessa Danielleigned Date/Time:12/18/201419 DD/ 19 EKG Data^: EKG 1: Attestation: I personally reviewed and interpreted this EKG as follows: EKG Interpretation Date: 12/18/20 EKG interpretation time: 13:58 Prior EKG tracings: not available for review Interpretation: Sinus rhythm. Heart rate 78 bpm. Normal axis. No ST changes. Discharge Plan Discharge Patient Disposition: Home Clinical Impression: Acute exacerbation of chronic obstructive pulmonary disease Condition: Stable Prescriptions: New levofloxacin 500 mg tablet 500 mg PO DAILY 7 Days Qty: 7 RF: 0 albuterol sulfate 2.5 mg /3 mL (0.083 %) solution for nebulization 2.5 mg inhalation Q4H PRN (Reason: shortness of breath or wheezing) Qty: 90 RF: 0 prednisone 20 mg tablet 40 mg PO DAILY 7 Days Qty: 14 RF: 0 Continued true metrix glucometer See Rx Instructions .ROUTE .COMPLEX Qty: 1 RF: 0 Humulin R U-500 (Conc) Kwikpen 500 unit/mL (3 mL) insulin pen See Rx Instructions .ROUTE .COMPLEX RF: 0 methadone 10 mg tablet 10 mg PO BID 30 Days Qty: 60 RF: 0 bumetanide 2 mg tablet 2 mg PO DAILY Qty: 90 RF: 3 (DME) blood sugar diagnostic Strip See Rx Instructions .ROUTE .MEDSUPPLY Qty: 100 RF: 11 (DME) miscellaneous medical supply Misc See Rx Instructions .ROUTE .MEDSUPPLY Qty: 1 RF: 0 alprazolam [Xanax] 0.25 mg tablet 0.25 mg PO DAILY PRN (Reason: Anxiety) Qty: 30 RF: 2 omeprazole 40 mg capsule,delayed release(DR/EC) 40 mg PO BID Qty: 60 RF: 3 topiramate [Topamax] 100 mg tablet 100 mg PO BID Qty: 60 RF: 3 citalopram [Celexa] 40 mg tablet 40 mg PO BEDTIME Qty: 30 RF: 3 (DME) Dexcom G6 Sensor Device See Rx Instructions .ROUTE .MEDSUPPLY Qty: 3 RF: 3 (DME) Dexcom G6 Hot Dip Galvanizer Misc See Rx Instructions .ROUTE .MEDSUPPLY Qty: 1 RF: 0 (DME) Dexcom G6 Transmitter Device See Rx Instructions .ROUTE .MEDSUPPLY Qty: 1 RF: 3 albuterol sulfate [Ventolin HFA] 90 mcg/actuation HFA aerosol inhaler 2 puff INHALATION Q4H PRN (Reason: shortness of breath) Qty: 54 RF: 3 Relistor 150 mg tablet 150 mg PO QAM Qty: 90 RF: 1 (DME) Blood Glucose Test Strip See Rx Instructions .ROUTE .MEDSUPPLY Qty: 100 RF: 12 (DME) Blood Glucose Test Strip See Rx Instructions .ROUTE .MEDSUPPLY Qty: 100 RF: 0 aspirin 81 mg Tablet,Delayed Release (Dr/Ec) 81 mg PO BID RF: 0 bisacodyl [Dulcolax (bisacodyl)] 5 mg Tablet,Delayed Release (Dr/Ec) 15 mg PO BEDTIME RF: 0 naproxen 250 mg Tablet 250 mg PO PRN RF: 0 prochlorperazine maleate 10 mg tablet 10 mg PO BEDTIME RF: 0 amlodipine 10 mg tablet 10 mg PO QAM RF: 0 simvastatin 20 mg tablet 20 mg PO QPM RF: 0 levothyroxine 150 mcg tablet 150 mcg PO QAM RF: 0 montelukast 10 mg tablet 10 mg PO QAM RF: 0 hydroxyzine HCl 25 mg tablet 25 mg PO QID RF: 0 Zanaflex 4 mg capsule 4 mg PO Q6H RF: 0 Discharge Orders: Discharge ED (Routine); Ordered 12/18/20 Ordered By: Ashutosh Hill Referrals: Donald Bolaños MD [Primary Care Provider] - 1-3 days Discharge Diet: Usual diet Discharge Activity: Increase activity as tolerated Patient Instructions: Chronic Obstructive Pulmonary Disease (ED) Activity Restrictions/Additional Instructions: Return for any new or worsening symptoms. Follow-up with your primary care provider within 3 days. Use the breathing treatments every 4 hours for the next 48 hours while awake, then use every 4 hours as needed. Take the medications as prescribed, the antibiotic and steroid. The steroid may make your blood sugar go up so make sure you check your blood sugars often while you are on the steroids. Coding Level of Care Code ED Paper Mill Superintendent for Jossy Robbins
[2020-12-18 16:59] LABS: Procalcitonin 0.09 ng/mL (0-0.5)
[2020-12-18 17:00] VITALS: O2SAT 94
[2020-12-18 17:39] LABS: Troponin T (5th) Once 36 ng/L (0-10)
[2020-12-18 18:04] VITALS: BP 159/67; PULSE 80; RESP 18; O2SAT 95
== END 2020-12-18 18:06 | disposition home or self-care (01) ==
PROVIDERS: Emergency Provider Family Medicine; PCP Internal Medicine
DX: J44.1 Chronic obstructive pulmonary disease with (acute) exacerbation (principal); Z79.4 Long term (current) use of insulin; Z79.02 Long term (current) use of antithrombotics/antiplatelets; E13.40 Other specified diabetes mellitus with diabetic neuropathy, unspecified; F17.210 Nicotine dependence, cigarettes, uncomplicated
CPT/HCPCS: 36415; 36600; 71046; 80053; 82805; 83880; 84145; 84484; 85025; 93005; 94640; 96365; 96375; 99284; J1956; J2930; J7611

== ENCOUNTER 2020-12-29 10:51 | Outpatient (CLI) | payer MEDICARE, SELFPAY | END 2020-12-29 10:52 | disposition home or self-care (01) | LOC: WOUND 10:53 | PROVIDERS: PCP Internal Medicine; Visit Provider Nurse Practitioner Family | DX: L89.623 Pressure ulcer of left heel, stage 3 (principal) | CPT/HCPCS: 11042 ==

== ENCOUNTER 2021-01-06 13:16 | Inpatient (IN) | payer MEDICARE, SELFPAY ==
[2021-01-06] VITALS (8 sets, daily range): BP systolic 148–201; BP diastolic 75–86; PULSE 70–88; RESP 16–22; TEMP 36.8–36.9; O2SAT 90–96; BMI 46.7
--- NOTE | 2021-01-06 13:35 | XR_ITS ---
WS: [id number] Portable AP upright chest, 01/06/2021 Clinical Data: dyspnea/cough Comparison: PA and lateral chest, 12/18/2020. Findings: No nodules, masses or effusions are seen. The heart is enlarged. The pulmonary vascularity is not increased. No pneumothorax is seen. There are bilateral patchy basilar opacities which could represent atelectasis and/or pneumonia. The aortic arch and descending aorta are tortuous. XR/XR chest 1V portable [id number] Impression: 1. Bilateral bibasilar opacities which could represent atelectasis and/or minim al pneumonia. 2. Atherosclerosis and cardiomegaly.
--- NOTE | 2021-01-06 13:36 | ECG_ITS ---
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 Measurements Intervals [place] Rate: 72 P: 0 [place]: 173 QRS: 4 QRSD: 104 T: 82 QT: 409 QTc: 449 Interpretive Statements SINUS RHYTHM POSSIBLE ANTERIOR MYOCARDIAL INFARCTION [30 ms Q WAVE IN V3/V4, OR R < 0.2 mV IN V4], PROBABLY OLD Compared to ECG 12/18/2020 13:58:08 Myocardial infarct finding now present T-wave abnormality no longer present Electronically Signed On 01-06-2021 21:49:00 CDT by Morro Eckert M.D. [id number]
--- NOTE | 2021-01-06 13:36 | ED_ITS ---
HPI - Extremity Problem General: Chief complaint: Extremity Problem,Nontraumatic Stated complaint: GENERALIZED WEAKNESS/ CELLULITIS Time Seen by Provider: 01/06/21 13:27 History of Present Illness: HPI Narrative: 60-year-old female presents to the emergency room complaining of red swollen legs as well as some shortness of breath and generally not feeling well. Patient has chronic venous stasis edema. Additionally she has chronic orthopnea is about at his normal baseline. She denies chest pain shortness of breath fever sweats or chills. MD Complaint: extremity swelling Onset (ago): unknown Pain Consistency: constant Location: left, right and lower extremity Quality: burning Radiation: proximal Relieving factors: nothing Exacerbating factors: palpation Associated symptoms: Reports myalgias; Deny arthralgias, chest pain, fever(s), rash or short of breath Review of Systems Const: Denies: fever(s) ENMT: Denies: throat pain, ear or mastoid pain, nasal discharge or nasal congestion Card: Denies: chest pain Resp: Denies: dyspnea, productive cough or non-productive cough GI: Denies: abdominal pain, nausea, vomiting, hematemesis, coffee ground emesis, diarrhea, constipation, bloating, hematochezia or melena : Denies: flank pain, difficulty voiding, dysuria, urinary frequency or urinary urgency Skin/Breast: Denies: rash [facility] PFSH: Medical History (Updated 01/07/21 @ 08:15 by Ian Stover DO) Cataract COPD (chronic obstructive pulmonary disease) Diabetes 1.5, managed as type 2 Diabetic neuropathy Glaucoma Morbid obesity Neuropathy Peripheral vascular disease Reflex sympathetic dystrophy Smoker Venous stasis dermatitis Surgical History H/O: hysterectomy History of cholecystectomy History of thyroidectomy Family History Father No problems noted. Mother Cancer Other Diabetes Social History Smoking and tobacco status: current every day smoker cigarettes Packs smoked per day: 2 Years cigarettes smoked: 45 Quit status (tobacco): considering quitting Second hand smoke exposure: Yes Alcohol intake: never History of recent travel: No Physical Exam Const: COMMON NORMALS: no acute distress GENERAL APPEARANCE: cooperative and comfortable ORIENTATION/CONSCIOUSNESS: Yes awake, Yes oriented to person, Yes oriented to place and Yes oriented to time HENMT: COMMON NORMALS: normocephalic, atraumatic and hearing grossly normal bilaterally HEAD & SCALP: normocephalic and atraumatic Neck/C-Spine: COMMON NORMALS: no JVD Resp: AUSCULTATION: rhonchi and wheezes Cardio: COMMON NORMALS: no JVD, regular rate, regular rhythm and No murmurs present (Cardio) RATE: regular rate RHYTHM: regular rhythm GI: COMMON NORMALS: Soft to palpation and No hepatosplenomegaly present AUSCULTATION: Yes normoactive bowel sounds PALPATION: Yes Soft to palpation, No Tenderness to palpation present (GI), No Guarding due to palpation present (GI) and Yes No hepatosplenomegaly present Extremity: NARRATIVE EXTREMITY EXAM: Inflamed lower extremities to the mid calf. They are indurated mild and warm to the touch no active drainage. Neuro: SENSORIUM/ORIENTATION: Yes oriented to person, Yes oriented to place and Yes oriented to time Skin: COMMON NORMALS: no rashes or lesions noted GENERAL SKIN EXAM: no rashes or lesions noted Course Vital Signs: Vital signs: Vital Signs Temperature 97.6 F 01/07/21 07:47 Pulse Rate 76 01/07/21 07:54 Respiratory Rate 16 01/07/21 07:48 Blood Pressure 143/72 01/07/21 07:47 Pulse Oximetry 93 01/07/21 07:48 MDM - Extremity (Nontraumatic) MDM Narrative: Medical decision making narrative: Patient was retaining on a high oxygen. That was turned down however she continues to retain order to put her on BiPAP start IV antibiotics admit for exacerbation COPD and cellulitis acute on chronic respiratory failure. Discussed with hospitalist orders written Lab Data: Labs: Lab Results 01/06/21 01/06/21 01/06/21 Range/Units 13:05 13:05 13:05 WBC 12.8 H (4.0-10.0) 10^3/ uL RBC 5.41 H (4.1-5.3) 10^6/u L Hgb 12.2 (11.5-15.3) g/dL Hct 40.7 (37.0-47.0) % MCV 75.2 L (81-99) fL MCH 22.6 L (28.0-34.0) pg MCHC 30.0 (30.0-36.0) g/dL RDW 19.0 H (12.1-15.1) % Plt Count 252 (130-400) 10^3/c mm MPV 10.3 (7.4-10.4) fL Neut % (Auto) 73.7 % Lymph % (Auto) 12.5 % Gaines % (Auto) 8.2 % Eos % (Auto) 4.4 % Baso % (Auto) 0.7 % Neut # (Auto) 9.44 H (1.8-7.7) 10^3/u L Lymph # (Auto) 1.6 (0.8-4.8) 10^3/u L Gaines # (Auto) 1.1 H (0.2-0.9) 10^3/u L Eos # (Auto) 0.6 (0.0-0.8) 10^3/u L Baso # (Auto) 0.1 (0.0-0.1) 10^3/u L Nucleated RBC % (a uto) 0 % Nucleated RBCs # 0.0 /100WBC Specimen Type Sample Site ABG pH (7.35-7.45) ABG pCO2 (35-45) mmHg ABG pO2 (80.0-100.0) mmH g ABG HCO3 (22-26) mmol/L ABG O2 Saturation ABG Base Excess (-2.0-2.0) mmol/ L Darrius Test A-a O2 Gradient (5-10) mmHg Hematocrit (37-47) % Hgb O2 Saturation (95-100) % Carboxyhemoglobin (0.4-20.1) %THgb Methemoglobin (0.4-1.5) % Total Hemoglobin (12-16) g/dL Ionized Calcium (1.1-1.4) mmol/L O2 Delivery Device O2 Liters/Min % FiO2 % Metal Engineering Process Worker ID Sodium 137 (136-145) mmol/L Potassium 4.0 (3.5-5.1) mmol/L Chloride 99 (98-107) mmol/L Carbon Dioxide 29 (22-29) mmol/L Anion Gap 13.0 (5-19) BUN 22 (8-23) mg/dL Creatinine 1.5 H (0.5-0.9) mg/dL GFR Calculation 35.3 L (90-130) mL/min Glucose 280 H (65-115) mg/dL Calculated Osmolal ity 297 H (285-295) mOsm/k g Calcium 10.1 (8.5-10.5) mg/dL Magnesium 2.2 (1.7-2.3) mg/dL Total Bilirubin 0.5 (0.15-1.2) mg/dL AST 10 (0-32) U/L ALT 11 (0-33) U/L Alkaline Phosphata se 127 H (35-105) IU/L Creatine Kinase 82 (26-192) U/L Troponin T Baselin e 39 H (0-10) ng/L Total Protein 7.0 (6.6-8.7) g/dL Albumin 4.1 (3.5-5.2) g/dL Globulin 2.9 (1.3-4.6) g/dL Urine Color (Yellow) Urine Appearance (CLEAR) Urine pH (5-7) Ur Specific Gravit y (1.005-1.030) Urine Protein (Negative) Urine Glucose (UA) (Normal) Urine Ketones (Negative) Urine Blood (Negative) Urine Nitrate (Negative) Urine Bilirubin (Negative) Urine Urobilinogen (Negative) mg/dL Ur Leukocyte Gelnna ase (Negative) 01/06/21 01/06/21 Range/Units 13:30 14:06 WBC (4.0-10.0) 10^3/ uL RBC (4.1-5.3) 10^6/u L Hgb (11.5-15.3) g/dL Hct (37.0-47.0) % MCV (81-99) fL MCH (28.0-34.0) pg MCHC (30.0-36.0) g/dL RDW (12.1-15.1) % Plt Count (130-400) 10^3/c mm MPV (7.4-10.4) fL Neut % (Auto) % Lymph % (Auto) % Gaines % (Auto) % Eos % (Auto) % Baso % (Auto) % Neut # (Auto) (1.8-7.7) 10^3/u L Lymph # (Auto) (0.8-4.8) 10^3/u L Gaines # (Auto) (0.2-0.9) 10^3/u L Eos # (Auto) (0.0-0.8) 10^3/u L Baso # (Auto) (0.0-0.1) 10^3/u L Nucleated RBC % (a uto) % Nucleated RBCs # /100WBC Specimen Type Arterial Sample Site Radial, left ABG pH 7.36 (7.35-7.45) ABG pCO2 51.2 H (35-45) mmHg ABG pO2 61.2 L (80.0-100.0) mmH g ABG HCO3 28.6 H (22-26) mmol/L ABG O2 Saturation 91.8 ABG Base Excess 2.2 H (-2.0-2.0) mmol/ L Darrius Test Pos A-a O2 Gradient 17.6 H (5-10) mmHg Hematocrit 36.9 L (37-47) % Hgb O2 Saturation 86.7 L (95-100) % Carboxyhemoglobin 5.4 (0.4-20.1) %THgb Methemoglobin 0.1 L (0.4-1.5) % Total Hemoglobin 12.0 (12-16) g/dL Ionized Calcium 1.4 (1.1-1.4) mmol/L O2 Delivery Device Nc O2 Liters/Min 4.0 % FiO2 36.0 % Metal Engineering Process Worker ID Cak Sodium 140.0 (136-145) mmol/L Potassium 3.7 (3.5-5.1) mmol/L Chloride (98-107) mmol/L Carbon Dioxide (22-29) mmol/L Anion Gap (5-19) BUN (8-23) mg/dL Creatinine (0.5-0.9) mg/dL GFR Calculation (90-130) mL/min Glucose 278.0 H (65-115) mg/dL Calculated Osmolal ity (285-295) mOsm/k g Calcium (8.5-10.5) mg/dL Magnesium (1.7-2.3) mg/dL Total Bilirubin (0.15-1.2) mg/dL AST (0-32) U/L ALT (0-33) U/L Alkaline Phosphata se (35-105) IU/L Creatine Kinase (26-192) U/L Troponin T Baselin e (0-10) ng/L Total Protein (6.6-8.7) g/dL Albumin (3.5-5.2) g/dL Globulin (1.3-4.6) g/dL Urine Color Yellow (Yellow) Urine Appearance Clear (CLEAR) Urine pH 7 (5-7) Ur Specific Gravit y 1.015 (1.005-1.030) Urine Protein Neg (Negative) Urine Glucose (UA) 2+ (Normal) Urine Ketones Negative (Negative) Urine Blood Neg (Negative) Urine Nitrate Negative (Negative) Urine Bilirubin Neg (Negative) Urine Urobilinogen Norm (Negative) mg/dL Ur Leukocyte Glenna ase Negative (Negative) Discharge Plan Discharge Patient Disposition: Admitted As Inpatient Admit Provider: Derik Hoang Clinical Impression: Acute and chronic respiratory failure with hypercapnia, Community acquired pneumonia, Cellulitis, Obesity, Pneumonia, COPD with acute exacerbation, Diabetes, CKD (chronic kidney disease) Condition: Stable Coding Level of Care Code ED 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
[2021-01-06 13:41] LABS: ABG PCO2 51.2 mmHg (35-45); ABG PH Result 7.36 (7.35-7.45); Alveolar-Arterial Oxygen Gradi 17.6 mmHg (5-10); Arterial Blood Gas Hematocrit 36.9 % (37-47); Base Excess ABG 2.2 mmol/L (-2.0-2.0); Blood Gas Allen Test Pos; Blood Gas Operator Identificat CAK; Blood Gas Sample Site Radial, left; Blood Gas Sample Type Arterial; Carboxyhemoglobin 5.4 %THgb (0.4-20.1); HCO3 ABG 28.6 mmol/L (22-26); HGB O2 Sat 86.7 % (95-100); Ionized Calcium Level - ABG 1.4 mmol/L (1.1-1.4); Methemoglobin 0.1 % (0.4-1.5); Oxygen Device NC; Oxygen Saturation ABG 91.8; PO2 ABG 61.2 mmHg (80.0-100.0); Potassium Level - ABG 3.7 mmol/L (3.5-5.0)
[2021-01-06 13:47] LABS: Basophils # 0.1 10^3/uL (0.0-0.1); Basophils % 0.7 %; Eosinophils # 0.6 10^3/uL (0.0-0.8); Eosinophils % 4.4 %; Hematocrit 40.7 % (37.0-47.0); Hemoglobin 12.2 g/dL (11.5-15.3); Lymphocytes # 1.6 10^3/uL (0.8-4.8); Lymphocytes % 12.5 %; Mean Corpuscular Hemoglobin 22.6 pg (28.0-34.0); Mean Corpuscular Volume 75.2 fL (81-99); Mean Platelet Volume 10.3 fL (7.4-10.4); Monocytes # 1.1 10^3/uL (0.2-0.9); Monocytes % 8.2 %; Neutrophils # 9.44 10^3/uL (1.8-7.7); Neutrophils % 73.7 %; Nucleated Red Blood Cells % 0 %; Platelet Count 252 10^3/cmm (130-400); Red Blood Count 5.41 10^6/uL (4.1-5.3); White Blood Count 12.8 10^3/uL (4.0-10.0)
[2021-01-06 14:04] LABS: Alanine Aminotransferase 11 U/L (0-33); Albumin Level 4.1 g/dL (3.5-5.2); Alkaline Phosphatase 127 IU/L (35-105); Aspartate Amino Transferase 10 U/L (0-32); Blood Urea Nitrogen 22 mg/dL (8-23); Calcium 10.1 mg/dL (8.5-10.5); Carbon Dioxide 29 mmol/L (22-29); Chloride 99 mmol/L (98-107); Creatine Phosphokinase 82 U/L (26-192); Globulin 2.9 g/dL (1.3-4.6); Glomerular Filtration Rate 35.3 mL/min (90-130); Glucose 280 mg/dL (65-115); Magnesium 2.2 mg/dL (1.7-2.3); Osmolality Calculated 297 mOsm/kg (285-295); Sodium 137 mmol/L (136-145); Total Bilirubin 0.5 mg/dL (0.15-1.2)
[2021-01-06 14:06] LABS: Troponin(5th) Baseline 39 ng/L (0-10)
[2021-01-06 14:12] LABS: Add Urine Microscopic? NO; Charge for UA Resulting for Rev
[2021-01-06 14:16] LABS: Protein Urine Neg (Negative); Specific Gravity, Urine 1.015 (1.005-1.030); Urine Appearance Clear (CLEAR); Urine Color Yellow (Yellow); pH Urine 7 (5-7)
[2021-01-06 14:17] LABS: Bilirubin Urine Neg (Negative); Blood Urine Neg (Negative); Glucose Urine UA 2+ (Normal); Ketones Urine Negative (Negative); Leukocyte Esterase Urine Negative (Negative); Nitrate Urine Negative (Negative); Urobilinogen Urine Norm (Negative)
--- NOTE | 2021-01-06 14:28 | USCV_ITS ---
Narciso Marion Age: 60 Gender: F : 1960 Exam Date: 01/06/2021 14:58 Ordering Phys: Ian Stover DO Technologist: Philly Ness [place]am Location[place] [facility] [place] [facility] [place] Indication: SWOLLEN RED FIRM LOWER LEGS. NON HEALING WOUND LT FOOT HISTORY: Non healing wound lt foot and swollen red legs PROCEDURES: The venous duplex Doppler examination of both lower extremities was performed in the standard fashion. The following venous structures were evaluated: common femoral vein, profunda vein, proximal portion of the greater saphenous vein, superficial femoral vein, and the popliteal vein. Serial compression, augmentation maneuvers, and spectral Doppler flow evaluation were performed. FINDINGS: Normal 2-D Doppler and augmentation and compressibility throughout the lower extremity venous structures. Additional imaging through the proximal calf veins also reveals no thrombus. Limited evaluation of the greater saphenous vein is patent with no thrombus.. CONCLUSIONS No DVT bilateral lower extremities. Dr. Rakel Maciel DO (Electronically Signed) Final Date: 06 Jan 2021 16:03 S
--- NOTE | 2021-01-06 15:36 | ECG_ITS ---
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 Measurements Intervals [place] Rate: 71 P: 0 OR: 161 QRS: -2 QRSD: 92 T: 90 QT: 313 QTc: 342 Interpretive Statements SINUS RHYTHM POSSIBLE ANTERIOR MYOCARDIAL INFARCTION [30 ms Q WAVE IN V3/V4, OR R < 0.2 mV IN V4], PROBABLY OLD Compared to ECG 01/06/2021 13:48:53 No significant changes Electronically Signed On 01-06-2021 21:58:54 CDT by Morro Eckert M.D. [id number]
[2021-01-06] MEDS: levofloxacin-dextrose 5 % 750 MG/150 ML PREMIX 100 MG IV (15:45)
[2021-01-06 15:57] LABS: ABG PCO2 52.9 mmHg (35-45); ABG PH Result 7.35 (7.35-7.45); Alveolar-Arterial Oxygen Gradi 17.1 mmHg (5-10); Arterial Blood Gas Hematocrit 38.1 % (37-47); Base Excess ABG 2.9 mmol/L (-2.0-2.0); Blood Gas Allen Test Pos; Blood Gas Operator Identificat CAK; Blood Gas Sample Site Radial, right; Blood Gas Sample Type Arterial; Carboxyhemoglobin 4.4 %THgb (0.4-20.1); HCO3 ABG 29.5 mmol/L (22-26); HGB O2 Sat 89.1 % (95-100); Ionized Calcium Level - ABG 1.4 mmol/L (1.1-1.4); Methemoglobin 0.8 % (0.4-1.5); Oxygen Device NC; PO2 ABG 62.8 mmHg (80.0-100.0); Potassium Level - ABG 3.6 mmol/L (3.5-5.0); Total Hemoglobin 12.4 g/dL (12-16)
--- NOTE | 2021-01-06 16:07 | PC.NURSE ---
Second EKG obtained, pt repositioned, vitals updated. Hospitalist at bedside, no immediate needs identified, will continue to monitor.
--- NOTE | 2021-01-06 16:26 | P.HP_ITS ---
Providers/Chief Complaint Admitting Physician: Derik Hoang MD Primary Care Provider: Donald Bolaños MD Chief Complaint: GENERALIZED WEAKNESS/ CELLULITIS History of Present Illness Marion Stuart is a 60 year old female with past medical history of COPD on 2 L home oxyge, Diabetes , Diabetic neuropathy, morbid obesity, neuropathy, PVD,RSD, chronic dyspnea, venous stasis dermatitis, came in with chief complaint of worsening lower extremity swelling and redness, as well as lethargy. Worsening lower extremity swelling and redness started about a week ago, she has chronic venous stasis dermatitis, but the lower extremity redness has been worsening for about a week time. She was also very much lethargic this morning, to the point that it was a difficult to wake her up, nurse who takes care of her was concerned and informed her , who to notice significant change in her m entation, as compared to her baseline, she was very drowsy, somnolent. Upon arrival in the ER she was worked up for above mention complain. Xray chest : Bilateral bibasilar opacities CV venous duplex LE BI : No DVT bilateral lower extremities. EKG: Sinus Rhthym Pertinent Labs: WBC: 12.8, H/H12/40, BUN/SCR: 22/1.5, Lactic Acid: 1.8 , urinalysis: Clean Troponin T baseline: 39, 2-hour troponin T: 40, 2h delta: 1.27 ABG: pH 7.35: PCO2 52: PO2:62, FiO2: 36% Review of Systems Const: Denies: fever(s) Card: Denies: palpitations Resp: Denies: productive cough, wheezing or pain on inspiration GI: Denies: abdominal pain, nausea, vomiting, diarrhea or constipation Neuro: Denies: headache(s) Medications/Allergies Home Medications Medication Instructions Recorded Confirmed Last Taken Type aspirin 81 mg PO BID@0900,2100 10/31/19 01/06/21 01/05/21 History bisacodyl [Dulcolax (bisacodyl)] 15 mg PO BEDTIME@2100 10/31/19 01/06/21 01/05/21 History true metrix glucometer See Rx Instructions .ROUTE 05/30/20 01/06/21 Unknown Rx .COMPLEX #1 device blood sugar diagnostic #100 each 06/27/20 01/06/21 Unknown Rx miscellaneous medical supply #1 ea 09/14/20 01/06/21 Unknown Rx alprazolam 0.25 mg tablet 0.25 mg PO DAILY PRN #30 tab 09/28/20 01/06/21 Unknown Rx insulin regular hum U-500 conc See Rx Instructions .ROUTE 10/24/20 01/06/21 01/05/21 History .COMPLEX ml albuterol sulfate 90 mcg/actuation 2 puff INHALATION Q4H PRN #54 g 11/16/20 01/06/21 01/06/21 03:00 Rx aerosol inhaler blood sugar diagnostic #100 ea 11/16/20 01/06/21 Unknown Rx blood-glucose meter,continuous #1 ea 11/16/20 01/06/21 Unknown Rx blood-glucose sensor #3 ea 11/16/20 01/06/21 Unknown Rx blood-glucose transmitter #1 ea 11/16/20 01/06/21 Unknown Rx albuterol sulfate 2.5 mg INHALATION Q4H PRN #90 ml 12/18/20 01/06/21 Unknown Rx amlodipine 10 mg PO DAILY@0900 12/18/20 01/06/21 01/05/21 History hydroxyzine HCl 25 mg PO QID 12/18/20 01/06/21 01/05/21 History levothyroxine 150 mcg PO DAILY@0900 12/18/20 01/06/21 01/05/21 History montelukast 10 mg PO DAILY@0900 12/18/20 01/06/21 01/05/21 History naproxen 250 mg PO PRN 12/18/20 01/06/21 01/05/21 History prochlorperazine maleate 10 mg PO BEDTIME@209912/18/20 01/06/21 01/05/21 History simvastatin 20 mg PO BEDTIME@209912/18/20 01/06/21 01/05/21 History tizanidine [Zanaflex] 4 mg PO Q6H 12/18/20 01/06/21 01/06/21 History blood sugar diagnostic See Rx Instructions .ROUTE 12/26/20 01/06/21 Unknown Rx .COMPLEX #350 strip Celexa 40 mg PO BEDTIME@209901/06/21 01/06/21 01/05/21 History Relistor 150 mg PO DAILY@0900 01/06/21 01/06/21 01/05/21 History Topamax 100 mg PO BID@0900,209901/06/21 01/06/21 01/05/21 History bumetanide 2 mg PO DAILY@0900 01/06/21 01/06/21 01/06/21 History methadone 10 mg PO BID@0900,2100 01/06/21 01/06/21 01/05/21 History metolazone 2.5 mg PO DAILY@0900 01/06/21 01/06/21 01/05/21 History omeprazole 40 mg PO BID@0900,2100 01/06/21 01/06/21 01/05/21 History Allergies Allergy/AdvReac Type Severity Reaction Status Date / Time adhesive tape Allergy RASH Verified 01/06/21 13:30 erythromycin base Allergy Unknown Verified 01/06/21 13:30 furosemide [From Lasix] Allergy LASIX Verified 01/06/21 13:30 gabapentin Allergy UNKNOWN Verified 01/06/21 13:30 hydrochlorothiazide Allergy Unknown Verified 01/06/21 13:30 insulin glargine Allergy UNKNOWN Verified 01/06/21 13:30 [From Lantus U-100 Insulin] lamotrigine [From Lamictal] Allergy Unknown Verified 01/06/21 13:30 nortriptyline Allergy Unknown Verified 01/06/21 13:30 oxcarbazepine Allergy UNKNOWN Verified 01/06/21 13:30 Penicillins Allergy Unknown Verified 01/06/21 13:30 polyethylene glycol Allergy Unknown Verified 01/06/21 13:30 [From Golytely] polyethylene glycol 3350 Allergy Unknown Verified 01/06/21 13:30 [From Golytely] potassium chloride Allergy Unknown Verified 01/06/21 13:30 [From Golytely] sodium [From Golytely] Allergy Unknown Verified 01/06/21 13:30 sodium bicarbonate Allergy Unknown Verified 01/06/21 13:30 [From Golytely] sodium chloride Allergy Unknown Verified 01/06/21 13:30 [From Golytely] sodium sulfate Allergy Unknown Verified 01/06/21 13:30 [From Golytely] sulfamethoxazole Allergy ALGY-Rash Verified 01/06/21 13:30 [From Bactrim] trimethoprim [From Bactrim] Allergy ALGY-Rash Verified 01/06/21 13:30 linezolid AdvReac ADR-Vomitin Verified 01/06/21 13:30 g PFSH Acute PFSH: Medical History (Updated 01/06/21 @ 20:09 by Derik Hoang MD) Cataract COPD (chronic obstructive pulmonary disease) Diabetes 1.5, managed as type 2 Diabetic neuropathy Glaucoma Morbid obesity Neuropathy Peripheral vascular disease Reflex sympathetic dystrophy Smoker Venous stasis dermatitis Surgical History H/O: hysterectomy History of cholecystectomy History of thyroidectomy Family History Father No problems noted. Mother Cancer Other Diabetes Social History Smoking and tobacco status: current every day smoker cigarettes Packs smoked per day: 2 Years cigarettes smoked: 45 Quit status (tobacco): considering quitting Second hand smoke exposure: Yes Alcohol intake: never History of recent travel: No Vitals/I&O/Wt Last Vital Signs Temp 98.4 F 01/06/21 13:17 Pulse 74 01/06/21 15:53 Resp 20 H 01/06/21 15:53 BP 201/86 01/06/21 15:53 Pulse Ox 94 01/06/21 15:53 Weight last 48 hrs Weight 131.542 kg Physical Exam Narrative: EXAM NARRATIVE: Alert and awake HENMT: COMMON NORMALS: normocephalic and atraumatic HEAD & SCALP: normocephalic and atraumatic Chest: CHEST: Yes Symmetrical chest wall rise Resp: COMMON NORMALS: clear to auscultation bilaterally EFFORT & INSPECTION: Yes symmetric chest movement AUSCULTATION: clear to auscultation bilaterally Cardio: COMMON NORMALS: regular rate, regular rhythm, S1 normal heart sound present, S2 normal heart sound present, No gallops present (Cardio), No murmurs present (Cardio), No rub (Cardio) and Peripheral pulses 2+ throughout RATE: regular rate RHYTHM: regular rhythm HEART SOUNDS: S1 normal heart sound present and S2 normal heart sound present PERIPHERAL PULSES: Peripheral puls es 2+ throughout GI: COMMON NORMALS: Normal to inspection, nondistended, normoactive bowel sounds present, Soft to palpation, non-tender, No hepatosplenomegaly present and no masses AUSCULTATION: Yes normoactive bowel sounds PALPATION: Yes Soft to palpation and Yes No hepatosplenomegaly present RECTAL EXAM: deferred Extremity: NARRATIVE EXTREMITY EXAM: Bilateral lower extremity chronic dermatitis 2/2 venous stasis changes present, bilateral lower extremity redness extending up to the knee present. Data : 01/06/21 13:05 01/06/21 13:05 Micro: Microbiology 01/06/21 15:50 Blood Culture - Preliminary Blood SPECIMEN COLLECTED 01/06/21 15:45 Blood Culture - Preliminary Blood SPECIMEN COLLECTED A&P Assessment and plan (1) Bilateral lower leg cellulitis: Levofloxacin 750 mg I.V Daily Doxycycline 100 MG i.v q12 h Daily Status: Acute (2) Pneumonia: Plan as 1 Duo Nebs Xray chest Blood Culture Sputum Culture Procalcitonin Status: Acute (3) Chronic respiratory failure with hypoxia and hypercapnia: Status: Acute (4) Essential hypertension: Continue Amlodipine 10 mg po daily Status: Acute (5) Diabetes 1.5, managed as type 1: Status: Acute (6) Smoker: Status: Acute (7) Obesity: Status: Acute Qualifiers: Obesity type: unspecified obesity type Obesity classification: adult class 3 (BMI >= 40) Serious obesity comorbidity presence: unspecified whether serious comorbidity present Body mass index: BMI 45.0-49.9 Qualified Code(s): E66.01 - Morbid (severe) obesity due to excess calories; Z68.42 - Body mass index (BMI) 45.0-49.9, adult (8) CKD stage 4 due to type 2 diabetes mellitus: Status: Acute (9) Chronic pain: Status: Acute (10) COPD (chronic obstructive pulmonary disease): Status: Acute (11) Hypothyroidism: Status: Acute Additional A&P Information CODE STATUS: Full code DVT prophylaxis: 5000 u subcu every 8 every 8 hours Disposition: Home Attestations Medical Necessity Statement*: Patient needs to be in hospita for the management of cellulitis,PNA.Anticipated LOS Greater the 2 midnights. Coding Level of Care Code Acute Staffing Coordinator for [facility] Fwd Diagnoses Bilateral lower leg cellulitis L03.116; L03.115 Pneumonia J18.9 Chronic respiratory failure with hypoxia and hypercapnia J96.11; J96.12 Essential hypertension I10 Diabetes 1.5, managed as type 1 E13.9 Smoker F17.200 Obesity E66.01; Z68.42 Obesity type: unspecified obesity type Obesity classification: adult class 3 (BMI >= 40) Serious obesity comorbidity presence: unspecified whether serious comorbidity present Body mass index: BMI 45.0-49.9 CKD stage 4 due to type 2 diabetes mellitus E11.22; N18.4 Chronic pain G89.29 COPD (chronic obstructive pulmonary disease) J44.9 Hypothyroidism E03.9
[2021-01-06 16:31] LABS: Lactic Sepsis W/Reflex 1.8 mmol/L (0.5-2.2)
[2021-01-06 16:38] LABS: Troponin 5 2HR 40.27 ng/L (0-10); Troponin 5 2HR Delta 1.27 ABS# (0-10)
[2021-01-06 17:10] LABS: Glucose Point of Care 308 mg/dL (70-110)
[2021-01-06] MEDS: docusate sodium 100 mg Capsule PO (19:22)
[2021-01-06] MEDS: amlodipine 10 mg Tablet PO (19:22)
[2021-01-06] MEDS: enoxaparin 40 mg/0.4 mL Syringe SUBCUT (19:23)
[2021-01-06] MEDS: bumetanide 0.25 mg/mL SDV 10 mL 2 MG IV (19:23)
[2021-01-06] MEDS: hyDROXYzine 25 mg Capsule PO ×2 (19:23→20:18)
[2021-01-06] MEDS: ipratropium-albuterol 3 mL Neb INHALATION ×2 (19:43→23:41)
[2021-01-06 20:16] LABS: Glucose Point of Care 372 mg/dL (70-110)
[2021-01-06] MEDS: topiramate 100 mg Tablet PO (20:18)
[2021-01-06] MEDS: pantoprazole DR 40 mg Tablet PO (20:18)
[2021-01-06] MEDS: aspirin 81 mg EC Tablet PO (20:18)
[2021-01-06] MEDS: methadone 10 mg Tablet PO (20:18)
[2021-01-06] MEDS: citalopram 20 mg Tablet 40 MG PO (20:18)
[2021-01-06] MEDS: prochlorperazine 10 mg Tablet PO (20:19)
[2021-01-06] MEDS: tizanidine 4 mg Tablet PO (20:19)
[2021-01-06] MEDS: atorvastatin 40 mg Tablet 20 MG PO (20:19)
[2021-01-06 20:46] LABS: Troponin 5 6HR 38.78 ng/L (0-10)
[2021-01-06 20:49] LABS: Troponin 5 6HR Delta -0.22 ng/L (0-12)
[2021-01-06] MEDS: doxycycline 100 MG in sodium chloride 0.9% (plus) 100 ML IV (21:27)
[2021-01-06] MEDS: heparin 5,000 unit/mL INJ 1 mL 5000 UNIT SUBCUT (21:29)
[2021-01-07] VITALS (17 sets, daily range): BP systolic 115–157; BP diastolic 62–79; PULSE 20–88; RESP 16–95; TEMP 36.4–36.9; O2SAT 92–97
[2021-01-07] MEDS: ipratropium-albuterol 3 mL Neb INHALATION ×5 (04:15→19:37)
[2021-01-07] MEDS: heparin 5,000 unit/mL INJ 1 mL 5000 UNIT SUBCUT ×3 (04:24→21:25)
[2021-01-07 04:29] LABS: Glucose Point of Care 429 mg/dL (70-110)
--- NOTE | 2021-01-07 05:26 | PC.NURSE ---
SHIFT SUMMARY Up in recliner all night. Says she sleeps in recliner at home due to back pain when she lays in bed. Dark redness, warmth, edema and dry scaley skin to BLE mid [place]/feet. Ambulates to bathroom with assist
[2021-01-07 05:48] LABS: Basophils # 0.1 10^3/uL (0.0-0.1); Basophils % 0.6 %; Eosinophils # 0.6 10^3/uL (0.0-0.8); Eosinophils % 5.2 %; Hematocrit 37.5 % (37.0-47.0); Hemoglobin 10.9 g/dL (11.5-15.3); Lymphocytes # 1.6 10^3/uL (0.8-4.8); Lymphocytes % 14.8 %; Mean Corpuscular HGB Conc 29.1 g/dL (30.0-36.0); Mean Corpuscular Hemoglobin 22.2 pg (28.0-34.0); Mean Corpuscular Volume 76.4 fL (81-99); Mean Platelet Volume 10.5 fL (7.4-10.4); Monocytes # 0.9 10^3/uL (0.2-0.9); Monocytes % 8.4 %; Neutrophils % 70.4 %; Nucleated Red Blood Cells % 0 %; Platelet Count 206 10^3/cmm (130-400); Red Blood Count 4.91 10^6/uL (4.1-5.3); Red Cell Distribution Width 18.8 % (12.1-15.1)
[2021-01-07 06:30] LABS: Glucose Point of Care 489 mg/dL (70-110)
[2021-01-07 06:45] LABS: Alanine Aminotransferase 9 U/L (0-33); Albumin Level 3.4 g/dL (3.5-5.2); Alkaline Phosphatase 110 IU/L (35-105); Anion Gap 14.6 (5-19); Aspartate Amino Transferase 8 U/L (0-32); Blood Urea Nitrogen 23 mg/dL (8-23); Calcium 9.5 mg/dL (8.5-10.5); Carbon Dioxide 28 mmol/L (22-29); Chloride 98 mmol/L (98-107); Globulin 3.1 g/dL (1.3-4.6); Glomerular Filtration Rate 32.8 mL/min (90-130); Glucose 455 mg/dL (65-115); Magnesium 1.9 mg/dL (1.7-2.3); Osmolality Calculated 307 mOsm/kg (285-295); Potassium 3.6 mmol/L (3.5-5.1); Sodium 137 mmol/L (136-145); Total Bilirubin 0.6 mg/dL (0.15-1.2); Total Protein 6.5 g/dL (6.6-8.7)
[2021-01-07 08:01] LABS: Glucose Point of Care 520 mg/dL (70-110)
[2021-01-07] MEDS: amlodipine 10 mg Tablet PO (08:35)
[2021-01-07] MEDS: pantoprazole DR 40 mg Tablet PO ×2 (08:35→21:24)
[2021-01-07] MEDS: montelukast sodium 10 mg Tablet PO (08:35)
[2021-01-07] MEDS: aspirin 81 mg EC Tablet PO ×2 (08:35→21:25)
[2021-01-07] MEDS: topiramate 100 mg Tablet PO ×2 (08:35→21:24)
[2021-01-07] MEDS: docusate sodium 100 mg Capsule PO ×2 (08:35→17:04)
[2021-01-07] MEDS: hyDROXYzine 25 mg Capsule PO ×4 (08:35→21:25)
[2021-01-07] MEDS: levothyroxine 150 mcg Tablet PO (08:35)
[2021-01-07] MEDS: metOLazone 5 MG Tablet 2.5 MG PO (08:36)
[2021-01-07] MEDS: methadone 10 mg Tablet PO ×2 (08:36→21:24)
[2021-01-07] MEDS: bumetanide 0.25 mg/mL SDV 10 mL 2 MG IV (08:36)
[2021-01-07] MEDS: doxycycline 100 MG in sodium chloride 0.9% (plus) 100 ML IV ×2 (08:39→21:25)
[2021-01-07 11:13] LABS: Glucose Point of Care 587 mg/dL (70-110)
--- NOTE | 2021-01-07 13:28 | PM.PN ---
Subjective Subjective: Interval history: Patient was seen and examined this morning, no acute events overnight, denies any active complaint, blood sugar is high, will switch her to home insulin regimen. Vitals/I&O/Wt Last Vital Signs Temp 97.9 F 01/07/21 12:00 Pulse 88 01/07/21 12:00 Resp 18 01/07/21 12:00 BP 156/72 01/07/21 12:00 Pulse Ox 97 01/07/21 12:00 01/06/21 01/07/21 01/07/21 22:59 06:59 14:59 Intake Total 250 / 250 250 / 500 100 / 100 Output Total 1000 / 1000 800 / 1800 600 / 600 Balance -750 / -750 -550 / -1300 -500 / -500 Weight last 48 hrs Weight 131.542 kg Physical Exam Narrative: EXAM NARRATIVE: Alert and awake HENMT: COMMON NORMALS: normocephalic and atraumatic HEAD & SCALP: normocephalic and atraumatic Chest: CHEST: Yes Symmetrical chest wall rise Resp: COMMON NORMALS: clear to auscultation bilaterally EFFORT & INSPECTION: Yes symmetric chest movement AUSCULTATION: clear to auscultation bilaterally Cardio: COMMON NORMALS: regular rate, regular rhythm, S1 normal heart sound present, S2 normal heart sound present, No gallops present (Cardio), No murmurs present (Cardio), No rub (Cardio) and Peripheral pulses 2+ throughout RATE: regular rate RHYTHM: regular rhythm HEART SOUNDS: S1 normal heart sound present and S2 normal heart sound present PERIPHERAL PULSES: Peripheral pulses 2+ throughout GI: COMMON NORMALS: Normal to inspection, nondistended, normoactive bowel sounds present, Soft to palpation, non-tender, No hepatosplenomegaly present and no masses AUSCULTATION: Yes normoactive bowel sounds PALPATION: Yes Soft to palpation and Yes No hepatosplenomegaly present RECTAL EXAM: deferred Extremity: NARRATIVE EXTREMITY EXAM: Bilateral lower extremity chronic dermatitis 2/2 venous stasis changes present, bilateral lower extremity redness extending up to the knee present. Data : 01/07/21 05:25 01/07/21 05:25 Micro: Microbiology 01/06/21 15:50 Blood Culture - Preliminary Blood SPECIMEN COLLECTED 01/06/21 15:45 Blood Culture - Preliminary Blood SPECIMEN COLLECTED A&P Assessment and plan (1) Bilateral lower leg cellulitis: Levofloxacin 750 mg I.V Daily Doxycycline 100 MG i.v q12 h Daily Status: Acute (2) Pneumonia: Plan as 1 Duo Nebs Xray chest : Blood Culture:NTD Sputum Culture Procalcitonin: 0.10 Status: Acute (3) Chronic respiratory failure with hypoxia and hypercapnia: Currently at her home oxygen requirement. Status: Acute (4) Essential hypertension: Continue Amlodipine 10 mg po daily Status: Acute (5) Diabetes 1.5, managed as type 1: Humulin R U-500 :100 U SC TID with Meal. Moniotr FSG Carbohydrate consistent diet Status: Acute (6) Smoker: Status: Acute (7) Obesity: Morbid obesity Status: Acute (8) CKD stage 4 due to type 2 diabetes mellitus: CKD stage IV: Secondary to uncontrolled diabetes: Currently at baseline serum creatinine:1.4-1.8 Monitor BMP Status: Acute (9) Chronic pain: Chronic pain syndrome, secondary to RSD Status: Acute (10) COPD (chronic obstructive pulmonary disease): Status: Acute (11) Hypothyroidism: Levothyroxine 150 MCG PO DAILY A.m. TSH Status: Acute Additional A&P Information CODE STATUS: Full code DVT prophylaxis: 5000 u subcu every 8 every 8 hours Disposition: Home Attestations Medical Necessity Statement*: Patient needs to be in hospital for management of cellulitis, and pneumonia Coding Level of Care Code Acute Director Health for [facility] Fwd Exam Detailed Diagnoses Bilateral lower leg cellulitis L03.116; L03.115 Pneumonia J18.9 Chronic respiratory failure with hypoxia and hypercapnia J96.11; J96.12 Essential hypertension I10 Diabetes 1.5, managed as type 1 E13.9 Smoker F17.200 Obesity E66.9 CKD stage 4 due to type 2 diabetes mellitus E11.22; N18.4 Chronic pain G89.29 COPD (chronic obstructive pulmonary disease) J44.9 Hypothyroidism E03.9
[2021-01-07] MEDS: levofloxacin-dextrose 5 % 750 MG/150 ML PREMIX 100 MG IV (14:26)
[2021-01-07] MEDS: bumetanide 0.25 mg/mL SDV 4 mL 1 MG IV (17:04)
[2021-01-07 17:22] LABS: Glucose Point of Care 586 mg/dL (70-110)
[2021-01-07 20:17] LABS: Glucose Point of Care 533 mg/dL (70-110)
[2021-01-07] MEDS: citalopram 20 mg Tablet 40 MG PO (21:24)
[2021-01-07] MEDS: atorvastatin 40 mg Tablet 20 MG PO (21:24)
[2021-01-07] MEDS: prochlorperazine 10 mg Tablet PO (21:24)
[2021-01-08] VITALS (12 sets, daily range): BP systolic 91–138; BP diastolic 65–73; PULSE 68–88; RESP 16–19; TEMP 36.6–36.8; O2SAT 92–96
[2021-01-08 03:43] LABS: Glucose Point of Care 128 mg/dL (70-110)
[2021-01-08] MEDS: ipratropium-albuterol 3 mL Neb INHALATION ×4 (04:08→11:53)
[2021-01-08] MEDS: heparin 5,000 unit/mL INJ 1 mL 5000 UNIT SUBCUT ×2 (04:34→12:37)
[2021-01-08 04:55] LABS: Basophils # 0.1 10^3/uL (0.0-0.1); Basophils % 0.6 %; Eosinophils # 0.7 10^3/uL (0.0-0.8); Eosinophils % 5.9 %; Hematocrit 39.4 % (37.0-47.0); Hemoglobin 11.7 g/dL (11.5-15.3); Lymphocytes # 1.9 10^3/uL (0.8-4.8); Lymphocytes % 16.5 %; Mean Corpuscular HGB Conc 29.7 g/dL (30.0-36.0); Mean Corpuscular Hemoglobin 22.2 pg (28.0-34.0); Mean Corpuscular Volume 74.8 fL (81-99); Mean Platelet Volume 10.5 fL (7.4-10.4); Monocytes # 1.1 10^3/uL (0.2-0.9); Monocytes % 9.7 %; Neutrophils # 7.69 10^3/uL (1.8-7.7); Nucleated Red Blood Cells % 0 %; Platelet Count 234 10^3/cmm (130-400); Red Blood Count 5.27 10^6/uL (4.1-5.3); Red Cell Distribution Width 18.5 % (12.1-15.1); White Blood Count 11.5 10^3/uL (4.0-10.0)
[2021-01-08 05:25] LABS: Anion Gap 13.5 (5-19); Blood Urea Nitrogen 27 mg/dL (8-23); Calcium 10.2 mg/dL (8.5-10.5); Carbon Dioxide 31 mmol/L (22-29); Chloride 96 mmol/L (98-107); Glomerular Filtration Rate 30.6 mL/min (90-130); Glucose 90 mg/dL (65-115); Osmolality Calculated 291 mOsm/kg (285-295); Sodium 138 mmol/L (136-145); Thyroid Stimulating Hormone 9.72 uIU/mL (0.27-4.20)
[2021-01-08 05:28] LABS: Potassium 2.5 mmol/L (3.5-5.1)
[2021-01-08] MEDS: potassium chloride ER 20 mEq Tablet 40 MEQ PO (06:09)
[2021-01-08 06:50] LABS: Glucose Point of Care 86 mg/dL (70-110)
[2021-01-08 09:10] LABS: Glucose Point of Care 331 mg/dL (70-110)
[2021-01-08] MEDS: hyDROXYzine 25 mg Capsule PO ×2 (09:28→12:37)
[2021-01-08] MEDS: amlodipine 10 mg Tablet PO (09:28)
[2021-01-08] MEDS: levothyroxine 25 mcg Tablet PO (09:28)
[2021-01-08] MEDS: topiramate 100 mg Tablet PO (09:28)
[2021-01-08] MEDS: docusate sodium 100 mg Capsule PO (09:28)
[2021-01-08] MEDS: montelukast sodium 10 mg Tablet PO (09:28)
[2021-01-08] MEDS: pantoprazole DR 40 mg Tablet PO (09:28)
[2021-01-08] MEDS: aspirin 81 mg EC Tablet PO (09:28)
[2021-01-08] MEDS: methadone 10 mg Tablet PO (09:28)
[2021-01-08] MEDS: levothyroxine 150 mcg Tablet PO (09:28)
[2021-01-08] MEDS: metOLazone 5 MG Tablet 2.5 MG PO (09:29)
[2021-01-08 09:56] LABS: Free T4 Free Thyroxine 0.89 ng/dL (0.82-1.77)
[2021-01-08] MEDS: bumetanide 0.25 mg/mL SDV 10 mL 2 MG IV (09:57)
[2021-01-08] MEDS: doxycycline 100 MG in sodium chloride 0.9% (plus) 100 ML IV (09:57)
--- NOTE | 2021-01-08 10:50 | USR_ITS ---
PROCEDURE INFORMATION: Exam: Limited ultrasound of the right ankle Exam date and time: 01/08/2021 11:11 AM Age: 60 years old Clinical indication: Symptoms: Right lower extremity redness TECHNIQUE: Imaging protocol: Limited ultrasound of the right ankle with combined grayscale and color flow imaging. COMPARISON: No relevant prior studies available. FINDINGS: Soft tissue swelling and subcutaneous edema, consistent with cellulitis in the appropriate clinical setting. No pathologic soft tissue mass or cystic collection. US/US soft tissue/extremity [id number] IMPRESSION: Soft tissue swelling and subcutaneous edema, consistent with cellulitis in the appropriate clinical setting.
--- NOTE | 2021-01-08 10:52 | PC.NURSE ---
Rcvd verbal order from Dr Hoang for Eucerin lotion and US soft tissue of Right Ankle. appeals writer put orders in as requested.
[2021-01-08 11:24] LABS: Glucose Point of Care 396 mg/dL (70-110)
--- NOTE | 2021-01-08 12:29 | P.DS_ITS ---
Discharge Providers Date of Admission: 01/06/21 15:38 Date of Discharge: January 08, 2021 Attending Provider at Admission: Derik Hoang MD Attending Provider at Discharge: Derik Hoang MD Primary Care Provider: Donald Bolaños MD Diagnoses at Discharge Discharge Diagnosis (1) Bilateral lower leg cellulitis: Status: Acute (2) Pneumonia: Status: Acute (3) Chronic respiratory failure with hypoxia and hypercapnia: Status: Acute (4) Essential hypertension: Status: Acute (5) Diabetes 1.5, managed as type 1: Status: Acute (6) Smoker: Status: Acute (7) Obesity: Status: Acute (8) CKD stage 4 due to type 2 diabetes mellitus: Status: Acute (9) Chronic pain: Status: Acute (10) COPD (chronic obstructive pulmonary disease): Status: Acute (11) Hypothyroidism: Status: Acute Reason for Visit Reason for Visit: GENERALIZED WEAKNESS/ CELLULITIS Hospital Course Hospital Course Marion Stuart is a 60 year old female with past medical history of COPD on 2 L home oxyge, Diabetes , Diabetic neuropathy, morbid obesity, neuropathy, PVD,RSD, chronic dyspnea, venous stasis dermatitis, came in with chief complaint of worsening lower extremity swelling and redness, as well as lethargy. Worsening lower extremity swelling and redness started about a week ago, she has chronic venous stasis dermatitis, but the lower extremity redness has been worsening for about a week time. She was also very much lethargic this morning, to the point that it was a difficult to wake her up, nurse who takes care of her was concerned and informed her , who to notice significant change in her mentation, as compared to her baseline, she was very drowsy, somnolent. Upon arrival in the ER she was worked up for above mention complain. Xray chest : Bilateral bibasilar opacities. CV venous duplex LE BI : No DVT bilateral lower extremities. EKG: Sinus Rhthym, Pertinent Labs: WBC: 12.8, H/H12/40, BUN/SCR: 22/1.5, Lactic Acid: 1.8 , urinalysis: Clean , Troponin T baseline: 39, 2-hour troponin T: 40, 2h delta: 1.27. ABG: pH 7.35: PCO2 52: PO2:62, FiO2: 36%. She was admitted for the management of bilateral lower extremity cellulitis, pneumonia, chronic respiratory failure with hypoxia and hypercapnia, she was started on levofloxacin as well as doxycycline, IV, during the hospital stay bilateral lower extremity cellulitis was improving, redness was decreasing, right ankle soft tissue ultrasound was also done as there was masslike swelling, at the right ankle, ultrasound is suggestive of cellulitis, she was discharged on p.o. levofloxacin as well as doxycycline for 10 additional 10 days. The above antibiotics will also help her with the pneumonia, at the time of discharge she was not, coughing, he was not short of breath, she was at her baseline oxygen requirement of 3 L, no fever.Blood culture was negative, procalcitonin was 0.10. For history of heart failure with preserved ejection fraction, she was compensated and euvolemic, she was continued on her home Bumex as well as metolazone dose. For uncontrolled diabetes she was continued on Humulin R U-500 :100 U SC TID with Meal. For her hypothyroidism Tsh and free T4 was: TSH was 9.72, free T4:0.89, levothyroxine dose was increased to 175 MCG PO DAILY FROM 150, she has been told to do repeat TSH in a month time to further titrate dose of levothyroxine. She responded well to the above medical management and was discharged in stable condition, she will continue to follow with primary care physician as an outpatient. Physical Exam Narrative: EXAM NARRATIVE: Alert and awake HENMT: COMMON NORMALS: normocephalic and atraumatic HEAD & SCALP: normocephalic and atraumatic Chest: CHEST: Yes Symmetrical chest wall rise Resp: COMMON NORMALS: clear to auscultation bilaterally EFFORT & INSPECTION: Yes symmetric chest movement AUSCULTATION: clear to auscultation bilaterally Cardio: COMMON NORMALS: regular rate, regular rhythm, S1 normal heart sound present, S2 normal heart sound present, No gallops present (Cardio), No murmurs present (Cardio), No rub (Cardio) and Peripheral pulses 2+ throughout RATE: regular rate RHYTHM: regular rhythm HEART SOUNDS: S1 normal heart sound present and S2 normal heart sound present PERIPHERAL PULSES: Peripheral pulses 2+ throughout GI: COMMON NORMALS: Normal to inspection, nondistended, normoactive bowel sounds present, Soft to palpation, non-tender, No hepatosplenomegaly present and no masses AUSCULTATION: Yes normoactive bowel sounds PALPATION: Yes Soft to palpation and Yes No hepatosplenomegaly present RECTAL EXAM: deferred Extremity: NARRATIVE EXTREMITY EXAM: Bilateral lower extremity chronic dermatitis 2/2 venous stasis changes present, bilateral lower extremity redness extending up to the knee present. Discharge Data Data Completed and Pending: Completed Studies During Hospitalization Category Date Time Status XR chest 1V pita ble [id number] Stat Exams 01/06/21 13:35 [place] [id number] Stat Ultrasound 01/06/21 14:28 Completed Pending at discharge Category Date Time Status Basic Metabolic P arabella AM LABS Lab 01/09/21 04:00 Ordered Blood Culture Sta t Lab 01/06/21 15:50 Results Complete Blood Co unt w/Auto AM LABS Lab 01/09/21 04:00 Ordered Sputum Culture an d Gram Stain Stat Lab 01/06/21 15:28 Uncollected US soft tissue/ex tremity [id number] Rout ine Ultrasound 01/08/21 10:50 Taken Labs from last 24 hours 01/08/21 01/08/21 01/08/21 11:08 09:05 06:37 WBC RBC Hgb Hct MCV MCH MCHC RDW Plt Count MPV Neut % (Auto) Lymph % (Auto) [place] % (Auto) Eos % (Auto) Baso % (Auto) Neut # (Auto) Lymph # (Auto) [place] # (Auto) Eos # (Auto) Baso # (Auto) Nucleated RBC % (a uto) Nucleated RBCs # Sodium Potassium Chloride Carbon Dioxide Anion Gap BUN Creatinine GFR Calculation Glucose POC Glucose 396 H 331 H 86 Calculated Osmolal ity Calcium TSH Free T4 01/08/21 01/08/21 01/08/21 04:35 04:35 04:35 WBC 11.5 H RBC 5.27 Hgb 11.7 Hct 39.4 MCV 74.8 L MCH 22.2 L MCHC 29.7 L RDW 18.5 H Plt Count 234 MPV 10.5 H Neut % (Auto) 67.0 Lymph % (Auto) 16.5 [place] % (Auto) 9.7 Eos % (Auto) 5.9 Baso % (Auto) 0.6 Neut # (Auto) 7.69 Lymph # (Auto) 1.9 [place] # (Auto) 1.1 H Eos # (Auto) 0.7 Baso # (Auto) 0.1 Nucleated RBC % (a uto) 0 Nucleated RBCs # 0.0 Sodium 138 Potassium 2.5 L* D Chloride 96 L Carbon Dioxide 31 H Anion Gap 13.5 BUN 27 H Creatinine 1.7 H GFR Calculation 30.6 L Glucose 90 POC Glucose Calculated Osmolal ity 291 Calcium 10.2 TSH 9.72 H Free T4 0.89 01/08/21 01/07/21 01/07/21 03:40 20:11 17:10 WBC RBC Hgb Hct MCV MCH MCHC RDW Plt Count MPV Neut % (Auto) Lymph % (Auto) [place] % (Auto) Eos % (Auto) Baso % (Auto) Neut # (Auto) Lymph # (Auto) [place] # (Auto) Eos # (Auto) Baso # (Auto) Nucleated RBC % (a uto) Nucleated RBCs # Sodium Potassium Chloride Carbon Dioxide Anion Gap BUN Creatinine GFR Calculation Glucose POC Glucose 128 H 533 H* 586 H* Calculated Osmolal ity Calcium TSH Free T4 Vitals: Last Vital Signs Temp 98.1 F 01/08/21 08:00 Pulse 84 01/08/21 11:58 Resp 18 01/08/21 11:52 BP 132/70 01/08/21 08:00 Pulse Ox 93 01/08/21 11:52 Discharge Plan Discharge Patient Disposition: Home Condition: Stable Prescriptions: New levothyroxine 25 mcg Tablet 25 mcg PO QAM 30 Days Qty: 30 RF: 1 levofloxacin 500 mg tablet 500 mg PO DAILY 10 Days RF: 0 doxycycline hyclate 100 mg capsule 100 mg PO BID 10 Days Qty: 20 RF: 0 Klor-Con 20 mEq packet 20 meq PO DAILY Qty: 30 RF: 0 Lanolin Doegvog-Re-G.Pet-[place] [Eucerin] 1 applic topical PRN 10 Days Qty: 1 RF: 0 Continued true metrix glucometer See Rx Instructions .ROUTE .COMPLEX Qty: 1 RF: 0 Humulin R U-500 (Conc) Kwikpen 500 unit/mL (3 mL) insulin pen See Rx Instructions .ROUTE .COMPLEX RF: 0 (DME) blood sugar diagnostic Strip See Rx Instructions .ROUTE .MEDSUPPLY Qty: 100 RF: 11 (DME) miscellaneous medical supply Misc See Rx Instructions .ROUTE .MEDSUPPLY Qty: 1 RF: 0 alprazolam [Xanax] 0.25 mg tablet 0.25 mg PO DAILY PRN (Reason: Anxiety) Qty: 30 RF: 2 (DME) Dexcom G6 Sensor Device See Rx Instructions .ROUTE .MEDSUPPLY Qty: 3 RF: 3 (DME) Dexcom G6 Rn Midwife Misc See Rx Instructions .ROUTE .MEDSUPPLY Qty: 1 RF: 0 (DME) Dexcom G6 Transmitter Device See Rx Instructions .ROUTE .MEDSUPPLY Qty: 1 RF: 3 albuterol sulfate [Ventolin HFA] 90 mcg/actuation HFA aerosol inhaler 2 puff INHALATION Q4H PRN (Reason: shortness of breath) Qty: 54 RF: 3 (DME) Blood Glucose Test Strip See Rx Instructions .ROUTE .MEDSUPPLY Qty: 100 RF: 0 True Metrix Glucose Test Strip Strip See Rx Instructions .ROUTE .COMPLEX Qty: 350 RF: 0 aspirin 81 mg Tablet,Delayed Release (Dr/Ec) 81 mg PO BID@899,2099 RF: 0 bisacodyl [Dulcolax (bisacodyl)] 5 mg Tablet,Delayed Release (Dr/Ec) 15 mg PO BEDTIME@2099 RF: 0 metolazone 2.5 mg tablet 2.5 mg PO DAILY@899 RF: 0 bumetanide 2 mg tablet 2 mg PO DAILY@899 RF: 0 Celexa 40 mg tablet 40 mg PO BEDTIME@2099 RF: 0 methadone 10 mg tablet 10 mg PO BID@899,2099 RF: 0 omeprazole 40 mg capsule,delayed release(DR/EC) 40 mg PO BID@899,2099 RF: 0 Topamax 100 mg tablet 100 mg PO BID@899,2099 RF: 0 Relistor 150 mg tablet 150 mg PO DAILY@00 RF: 0 naproxen 250 mg Tablet 250 mg PO PRN RF: 0 prochlorperazine maleate 10 mg tablet 10 mg PO BEDTIME@2099 RF: 0 amlodipine 10 mg tablet 10 mg PO DAILY@00 RF: 0 simvastatin 20 mg tablet 20 mg PO BEDTIME@2099 RF: 0 levothyroxine 150 mcg tablet 150 mcg PO DAILY@0900 RF: 0 montelukast 10 mg tablet 10 mg PO DAILY@0900 RF: 0 hydroxyzine HCl 25 mg tablet 25 mg PO QID RF: 0 tizanidine [Zanaflex] 4 mg capsule 4 mg PO Q6H RF: 0 albuterol sulfate 2.5 mg /3 mL (0.083 %) solution for nebulization 2.5 mg inhalation Q4H PRN (Reason: shortness of breath or wheezing) Qty: 90 RF: 0 Discharge Orders: Discharge Order (Routine); Ordered 01/08/21 Ordered By: Derik Hoang Referrals: Donald Bolaños MD [Primary Care Provider] - (Please call tomorrow morning to schedule a follow up appointment with your primary care doctor, within 4-7days for a hospital follow-up.) Discharge Diet: Diabetic Discharge Activity: Resume usual activity Patient Instructions: Cellulitis, Doxycycline (By mouth), Levothyroxine (By mouth), Levofloxacin (By mouth), Community-acquired Pneumonia (DC), Opioid Safety Activity Restrictions/Additional Instructions: Patient will need repeat TSH as well as Free T4 in a month.As her dose of levothyroxine has been increased.Based on the repeat lab values dose adjustment will be done by the PCP. Discharge Attestations Time Spent in Discharge Care*: less than 30 min Quality Metrics Clinical Quality Measures During this hospital stay, did patient experience: None Coding Level of Care Code Acute Chg FW DC note Exam Detailed Diagnoses Bilateral lower leg cellulitis L03.116; L03.115 Pneumonia J18.9 Chronic respiratory failure with hypoxia and hypercapnia J96.11; J96.12 Essential hypertension I10 Diabetes 1.5, managed as type 1 E13.9 Smoker F17.200 Obesity E66.9 CKD stage 4 due to type 2 diabetes mellitus E11.22; N18.4 Chronic pain G89.29 COPD (chronic obstructive pulmonary disease) J44.9 Hypothyroidism E03.9
--- NOTE | 2021-01-08 16:34 | PC.NURSE ---
PT HAS DONE WELL FOR ME TODAY. NO COMPLAINTS OF PAIN FROM PT TO ME. PT WILL DISCHARGE TODAY PER MD. DISCHARGE PAPERWORK WAS GONE OVER WITH PT. ALL QUESTIONS WERE ANSWERED. EUCERIN WAS APPLIED TO PT'S LEGS AND THEN WRAPPED WITH KERLIX. IV WAS THEN REMOVED. THIS NURSE THEN WHEELED PT OUT OF THE HOSPITAL TO ER ENTRANCE. PT SAFELY DISCHARGED FROM THE HOSPITAL AT 1523.
--- NOTE | 2021-01-09 11:50 | PC.RESP ---
Pulmonary Rehab and Smoking Cessation information sent to patient.
== END 2021-01-08 16:39 | disposition home or self-care (01) | DRG 602 ==
LOC: ER 14:10 → MEDSURG 01-07 08:15 → MS 2A 01-13 10:50
PROVIDERS: Admitting Provider Internal Medicine; Emergency Provider Family Medicine; PCP Internal Medicine; Visit Provider Internal Medicine
DX: L03.116 Cellulitis of left lower limb (principal); J18.9 Pneumonia, unspecified organism; J44.0 Chronic obstructive pulmonary disease with (acute) lower respiratory infection; Z68.42 Body mass index [BMI] 45.0-49.9, adult; N18.4 Chronic kidney disease, stage 4 (severe); I50.32 Chronic diastolic (congestive) heart failure; G90.50 Complex regional pain syndrome I, unspecified; J96.12 Chronic respiratory failure with hypercapnia; J96.11 Chronic respiratory failure with hypoxia; L03.115 Cellulitis of right lower limb; I11.0 Hypertensive heart disease with heart failure; E13.51 Other specified diabetes mellitus with diabetic peripheral angiopathy without gangrene; F17.210 Nicotine dependence, cigarettes, uncomplicated; E66.01 Morbid (severe) obesity due to excess calories; E13.22 Other specified diabetes mellitus with diabetic chronic kidney disease; E89.0 Postprocedural hypothyroidism; E13.40 Other specified diabetes mellitus with diabetic neuropathy, unspecified; I87.2 Venous insufficiency (chronic) (peripheral); H40.9 Unspecified glaucoma; E13.65 Other specified diabetes mellitus with hyperglycemia; Z79.4 Long term (current) use of insulin; Z79.82 Long term (current) use of aspirin; Z79.891 Long term (current) use of opiate analgesic
CPT/HCPCS: 36415; 36416; 36600; 71045; 76882; 80048; 80051; 80053; 81003; 82330; 82550; 82805; 82962; 83605; 83735; 84145; 84439; 84443; 84484; 85025; 87040; 93005; 93970; 94640; 96372; J1644; J1650; J1815; J1956; J3480; J3490; Q0164

== ENCOUNTER 2021-01-26 11:09 | Outpatient (CLI) | payer MEDICARE, SELFPAY | END 2021-01-26 11:10 | disposition home or self-care (01) | LOC: WOUND 11:10 | PROVIDERS: PCP Internal Medicine; Visit Provider Nurse Practitioner Family | DX: L89.623 Pressure ulcer of left heel, stage 3 (principal) | CPT/HCPCS: 11042 ==

== ENCOUNTER 2021-05-31 18:49 | Emergency (ER) | payer MEDICARE, SELFPAY ==
[2021-05-31 18:53] VITALS: BP 177/84; PULSE 86; RESP 18; TEMP 37.1; O2SAT 96; BMI 48.4
--- NOTE | 2021-05-31 18:59 | CTR_ITS ---
PROCEDURE INFORMATION: Exam: CT Abdomen And Pelvis Without Contrast Exam date and time: 05/31/2021 6:59 PM Age: 60 years old Clinical indication: Nausea; Abdominal pain; Generalized; Prior surgery; Surgery type: Gb, hyst, hernia; Additional info: Abd pain TECHNIQUE: Imaging protocol: Computed tomography of the abdomen and pelvis without contrast. Radiation optimization: All CT scans at this facility use at least one of these dose optimization techniques: automated exposure control; mA and/or kV adjustment per patient size (includes targeted exams where dose is matched to clinical indication); or iterative reconstruction. COMPARISON: CT abdomen pelvis wo con [id number] 05/12/2019 5:25 PM RADIATION DOSE METRICS: Total DLP (mGy-cm): 2527.97 FINDINGS: Liver: Normal. No mass. Gallbladder and bile ducts: Cholecystectomy. Nondilated biliary system. Pancreas: Fatty atrophy of pancreas. No focal pancreatic lesion. Spleen: Normal. No splenomegaly. Adrenal glands: Right adrenal gland seems to be surgically absent. Left adrenal gland is normal. Kidneys and ureters: Normal. No hydronephrosis. Stomach and bowel: No inflammatory bowel wall thickening identified. No focal bowel mass identified. Moderate fecal volume. Negative for bowel obstruction. Negative for bowel perforation. Appendix: No evidence of appendicitis. Intraperitoneal space: Unremarkable. No free air. No significant fluid collection. Vasculature: Scattered atherosclerosis of abdominal aorta. Negative for aneurysm. Lymph nodes: Unremarkable. No enlarged lymph nodes. Urinary bladder: Unremarkable as visualized. Reproductive: Hysterectomy. Bones/joints: The lumbar spine demonstrates moderate discogenic and apophyseal joint degenerative changes at multiple levels. Soft tissues: Extensive subcutaneous soft tissue edema changes are noted throughout the lower abdominal pannus with overlying skin thickening. No organized fluid collection. There is broad laxity of the ventral abdominal wall aponeurosis. Asymmetric atrophy of the right psoas muscle. CT/CT abdomen pelvis con [id number] IMPRESSION: 1. Cellulitis changes of the ventral abdominal wall pannus are suspected. 2. Negative for acute intra-abdominal pathology. Radiation Dose CTDIVOL = (mGy): DLP = 2527.97 (mGy-cm)
[2021-05-31 19:14] LABS: Basophils # 0.1 10^3/uL (0.0-0.1); Basophils % 1.4 %; Eosinophils # 0.8 10^3/uL (0.0-0.8); Eosinophils % 8.2 %; Hemoglobin 12.4 g/dL (11.5-15.3); Lymphocytes # 1.8 10^3/uL (0.8-4.8); Lymphocytes % 18.8 %; Mean Corpuscular HGB Conc 28.2 g/dL (30.0-36.0); Mean Corpuscular Hemoglobin 23.7 pg (28.0-34.0); Mean Corpuscular Volume 84.1 fl (81-99); Mean Platelet Volume 9.8 fL (7.4-10.4); Monocytes # 1.1 10^3/uL (0.2-0.9); Monocytes % 11.1 %; Neutrophils # 5.75 10^3/uL (1.8-7.7); Neutrophils % 59.9 %; Nucleated Red Blood Cells % 0 %; Platelet Count 222 10^3/cmm (130-400); Red Blood Count 5.23 10^6/uL (4.1-5.3); Red Cell Distribution Width 21.9 % (12.1-15.1); White Blood Count 9.6 10^3/uL (4.0-10.0)
--- NOTE | 2021-05-31 19:18 | W.ED.ABDPA2 ---
HPI - Abdominal Pain General: Chief Complaint: Abdominal Pain Stated Complaint: ABD PAIN Time Seen by Provider: 05/31/21 18:53 Source: patient and EMS Mode of arrival: EMS Limitations: no limitations History of Present Illness: HPI narrative: 60-year-old female with a history of hernias in the past has had hernia surgeries has had abdominal pain from these before. She states she has been having increasing abdominal pain is diffusely across her hernia repair sites for the last 2 weeks. She states it is gradually worsened and is worse with palpation improved with rest. States pain is currently 7 out of 10 sharp in nature. Denies any vomiting or diarrhea. Denies any fevers. Associated Symptoms: Denies chills, dysuria and fever(s) Review of Systems Const: Denies: fever(s), chills, body aches or change in appetite Eyes: Denies: blurry vision or eye discomfort ENMT: Denies: throat pain or dental pain Card: Denies: chest pain Resp: Denies: dyspnea GI: Reports: abdominal pain : Denies: dysuria Musc: Denies: neck pain or back pain Skin/Breast: Denies: rash Neuro: Denies: headache(s) Psych: Denies: depression Justin/Lymph: Denies: easy bruising All/Imm: Denies: urticaria PFSH ED PFSH: Medical History (Updated 05/31/21 @ 21:21 by Juan A Gil MD) Acute and chronic respiratory failure with hypercapnia Bilateral lower leg cellulitis Cataract Cellulitis Chronic pain Chronic respiratory failure with hypoxia and hypercapnia CKD (chronic kidney disease) CKD stage 4 due to type 2 diabetes mellitus Community acquired pneumonia COPD (chronic obstructive pulmonary disease) COPD with acute exacerbation 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 Mother Cancer Other Diabetes Social History Smoking and tobacco status: current every day smoker cigarettes Packs smoked per day: 2 Years cigarettes smoked: 45 Quit status (tobacco): considering quitting Second hand smoke exposure: Yes Alcohol intake: never History of recent travel: No Physical Exam Const: COMMON NORMALS: no acute distress, patient oriented x3 and healthy appearing HENMT: COMMON NORMALS: normocephalic and atraumatic HEAD & SCALP: normocephalic and atraumatic Eye: COMMON NORMALS: Equal, round and reactive pupils present and EOMs intact bilaterally PUPIL: Yes Equal, round and reactive pupils present Neck/C-Spine: COMMON NORMALS: full ROM and supple Chest: COMMONS NORMALS: normal inspection of the chest and normal palpation of entire chest wall Resp: COMMON NORMALS: normal respiratory effort, No retractions, No use of accessory muscles and clear to auscultation bilaterally AUSCULTATION: clear to auscultation bilaterally Cardio: COMMON NORMALS: regular rate, regular rhythm and No murmurs present (Cardio) RATE: regular rate RHYTHM: regular rhythm GI: COMMON NORMALS: Normal to inspection, nondistended, normoactive bowel sounds present, Soft to palpation, non-tender and no masses PALPATION: Yes Soft to palpation OTHER: diffuse mild tenderness Extremity: COMMON NORMALS: normal to inspection and full ROM Neuro: COMMON NORMALS: patient oriented x3, moves all extremities and no focal motor deficits Psych: COMMON NORMALS: mental status grossly normal, Normal thought process present and cooperative THOUGHT PROCESS: Normal thought process present Skin: COMMON NORMALS: no rashes or lesions noted and no wounds GENERAL SKIN EXAM: no rashes or lesions noted Course Vital Signs: Vital signs: Vital Signs Temperature 98.8 F 05/31/21 18:53 Pulse Rate 88 05/31/21 21:13 Respiratory Rate 16 05/31/21 21:13 Blood Pressure 154/82 05/31/21 21:13 Pulse Oximetry 96 05/31/21 21:13 MDM - Abdominal Pain MDM Narrative: Medical decision making narrative: Patient presents with generalized abdominal pain that has been going on for weeks. Her CT showed a possible cellulitis but on exam she has no signs of cellulitis her white count is normal. Patient's exam here is benign she has no signs of hernia or intra-abdomina findings on CT scan. Patient feels improved here and is stable for discharge. She is to follow-up PCP and return if worsening. Lab Data: Labs: Lab Results 05/31/21 05/31/21 05/31/21 19:05 19:05 20:05 WBC 9.6 10^3/uL 10^3/ uL (4.0-10.0) RBC 5.23 10^6/uL 10^6 /uL (4.1-5.3) Hgb 12.4 g/dL g/dL (11.5-15.3) Hct 44.0 % % (37.0-47.0) MCV 84.1 fl fl (81-99) MCH 23.7 pg L pg (28.0-34.0) MCHC 28.2 g/dL L g/dL (30.0-36.0) RDW 21.9 % H % (12.1-15.1) Plt Count 222 10^3/cmm 10^3 /cmm (130-400) MPV 9.8 fL fL (7.4-10.4) Neut % (Auto) 59.9 % % Lymph % (Auto) 18.8 % % Fleming % (Auto) 11.1 % % Eos % (Auto) 8.2 % % Baso % (Auto) 1.4 % % Neut # (Auto) 5.75 10^3/uL 10^3 /uL (1.8-7.7) Lymph # (Auto) 1.8 10^3/uL 10^3/ uL (0.8-4.8) Fleming # (Auto) 1.1 10^3/uL H 10^ 3/uL (0.2-0.9) Eos # (Auto) 0.8 10^3/uL 10^3/ uL (0.0-0.8) Baso # (Auto) 0.1 10^3/uL 10^3/ uL (0.0-0.1) Nucleated RBC % (a uto) 0 % % Nucleated RBCs # 0.0 /100WBC /100W BC Sodium 138 mmol/L mmol/L (136-145) Potassium 4.0 mmol/L mmol/L (3.5-5.1) Chloride 102 mmol/L mmol/L (98-107) Carbon Dioxide 25 mmol/L mmol/L (22-29) Anion Gap 15.0 (5-19) BUN 18 mg/dL mg/dL (8-23) Creatinine 1.3 mg/dL H mg/dL (0.5-0.9) GFR Calculation 41.6 mL/min L mL/ min (90-130) Glucose 181 mg/dL H mg/dL (65-115) Calculated Osmolal ity 292 mOsm/kg mOsm/ kg (285-295) Calcium 10.5 mg/dL mg/dL (8.5-10.5) Total Bilirubin 0.3 mg/dL mg/dL (0.15-1.2) AST 19 U/L U/L (0-32) ALT 19 U/L U/L (0-33) Alkaline Phosphata se 144 IU/L H IU/L (35-105) Total Protein 7.3 g/dL g/dL (6.6-8.7) Albumin 4.2 g/dL g/dL (3.5-5.2) Globulin 3.1 g/dL g/dL (1.3-4.6) Lipase 20 U/L U/L (13-60) Urine Color Straw (Yellow) Urine Appearance Clear (CLEAR) Urine pH 7 (5-7) Ur Specific Gravit y 1.010 (1.005-1.030) Urine Protein Neg (Negative) Urine Glucose (UA) Norm (Normal) Urine Ketones Negative (Negative) Urine Blood Neg (Negative) Urine Nitrate Negative (Negative) Urine Bilirubin Neg (Negative) Urine Urobilinogen Norm mg/dL mg/dL (Negative) Ur Leukocyte Glenna ase Negative (Negative) Imaging Data ^: CT Abd/Pel: Attestation: I personally reviewed and interpreted this imaging study as follows: Radiologist's impression: [address] [address] [address] Scan Report Signed Patient: Marion Stuart Unit #: [id number] : 1960 Age/Sex: 60 / F ADM Date: 05/31/21 Loc: ER Room/Bed: Attending Dr: Ordering Provider/Ordering MD: Juan A Gil MD Date of Service: 05/31/21 Procedure(s): CT abdomen pelvis con [id number] Accession Number(s): [id number] Report Number: [id number] PROCEDURE INFORMATION: Exam: CT Abdomen And Pelvis Without Contrast Exam date and time: 05/31/2021 6:59 PM Age: 60 years old Clinical indication: Nausea; Abdominal pain; Generalized; Prior surgery; Surgery type: Gb, hyst, hernia; Additional info: Abd pain TECHNIQUE: Imaging protocol: Computed tomography of the abdomen and pelvis without contrast. Radiation optimization: All CT scans at this facility use at least one of these dose optimization techniques: automated exposure control; mA and/or kV adjustment per patient size (includes targeted exams where dose is matched to clinical indication); or iterative reconstruction. COMPARISON: CT abdomen pelvis wo con [id number] 05/12/2019 5:25 PM RADIATION DOSE METRICS: Total DLP (mGy-cm): 2527.97 FINDINGS: Liver: Normal. No mass. Gallbladder and bile ducts: Cholecystectomy. Nondilated biliary system. Pancreas: Fatty atrophy of pancreas. No focal pancreatic lesion. Spleen: Normal. No splenomegaly. Adrenal glands: Right adrenal gland seems to be surgically absent. Left adrenal gland is normal. Kidneys and ureters: Normal. No hydronephrosis. Stomach and bowel: No inflammatory bowel wall thickening identified. No focal bowel mass identified. Moderate fecal volume. Negative for bowel obstruction. Negative for bowel perforation. Appendix: No evidence of appendicitis. Intraperitoneal space: Unremarkable. No free air. No significant fluid collection. Vasculature: Scattered atherosclerosis of abdominal aorta. Negative for aneurysm. Lymph nodes: Unremarkable. No enlarged lymph nodes. Urinary bladder: Unremarkable as visualized. Reproductive: Hysterectomy. Bones/joints: The lumbar spine demonstrates moderate discogenic and apophyseal joint degenerative changes at multiple levels. Soft tissues: Extensive subcutaneous soft tissue edema changes are noted throughout the lower abdominal pannus with overlying skin thickening. No organized fluid collection. There is broad laxity of the ventral abdominal wall aponeurosis. Asymmetric atrophy of the right psoas muscle. CT/CT abdomen pelvis wo con [id number] IMPRESSION: 1. Cellulitis changes of the ventral abdominal wall pannus are suspected. 2. Negative for acute intra-abdominal pathology. Radiation Dose CTDIVOL = (mGy): DLP = 2527.97 (mGy-cm) Dictated By: Shukri Johnston Signed By: Shukri Johnston Signed Date/Time: 05/31/212026 DD/ 58 Discharge Plan Discharge Patient Disposition: Home Clinical Impression: Abdominal pain Qualifiers: Abdominal location: generalized Qualified Code(s): R10.84 - Generalized abdominal pain Condition: Stable Prescriptions: New dicyclomine 20 mg tablet 20 mg PO TID PRN (Reason: abdominal pain) Qty: 20 RF: 0 No Action true metrix glucometer See Rx Instructions .ROUTE .COMPLEX Qty: 1 RF: 0 levofloxacin 750 mg tablet 750 mg PO DAILY 10 Days Qty: 10 RF: 0 doxycycline hyclate 100 mg tablet 100 mg PO BID 10 Days Qty: 20 RF: 0 True Metrix Glucose Test Strip Strip See Rx Instructions .ROUTE .COMPLEX RF: 0 Humulin R U-500 (Conc) Kwikpen 500 unit/mL (3 mL) insulin pen See Rx Instructions .ROUTE .COMPLEX RF: 0 Klor-Con 20 mEq packet 40 meq PO DAILY Qty: 100 RF: 3 (DME) blood sugar diagnostic Strip See Rx Instructions .ROUTE .MEDSUPPLY Qty: 100 RF: 11 (DME) miscellaneous medical supply Misc See Rx Instructions .ROUTE .MEDSUPPLY Qty: 1 RF: 0 alprazolam [Xanax] 0.25 mg tablet 0.25 mg PO DAILY PRN (Reason: Anxiety) Qty: 30 RF: 2 albuterol sulfate [Ventolin HFA] 90 mcg/actuation HFA aerosol inhaler 2 puff INHALATION Q4H PRN (Reason: shortness of breath) Qty: 54 RF: 3 (DME) OXYGEN MOUTH PIECE See Rx Instructions .Route .MEDSUPPLY Qty: 1 RF: 0 levothyroxine 175 mcg capsule 175 mcg PO DAILY Qty: 30 RF: 3 citalopram 40 mg tablet See Rx Instructions .ROUTE .COMPLEX Qty: 90 RF: 3 lactulose 10 gram/15 mL (15 mL) solution 15 ml PO DAILY PRN (Reason: constipation) Qty: 15 RF: 3 True Metrix Glucose Test Strip Strip See Rx Instructions .ROUTE .COMPLEX Qty: 350 RF: 0 Topamax 100 mg tablet 100 mg PO BID@0900,2100 Qty: 60 RF: 3 hydroxyzine HCl 25 mg tablet 25 mg PO QID Qty: 90 RF: 3 omeprazole 40 mg capsule,delayed release(DR/EC) 40 mg PO BID@0900,2100 Qty: 60 RF: 3 simvastatin 20 mg tablet 20 mg PO BEDTIME@2099 Qty: 90 RF: 3 bumetanide 2 mg tablet 2 mg PO DAILY@0900 Qty: 90 RF: 3 Relistor 150 mg tablet See Rx Instructions .ROUTE .COMPLEX Qty: 90 RF: 0 (DME) Dexcom G6 Medication Aid Misc See Rx Instructions .ROUTE .MEDSUPPLY Qty: 1 RF: 0 (DME) Dexcom G6 Sensor Device See Rx Instructions .ROUTE .MEDSUPPLY Qty: 3 RF: 3 (DME) Dexcom G6 Transmitter Device See Rx Instructions .ROUTE .MEDSUPPLY Qty: 1 RF: 3 (DME) pen needle, diabetic [Comfort EZ Pen [place]] 32 gauge x 1/4 needle See Rx Instructions .Route Qty: 100 RF: 3 tizanidine 4 mg tablet 4 mg PO Q6H PRN (Reason: muscle spasticity) Qty: 360 RF: 0 (DME) oxygen See Rx Instructions .Route .MEDSUPPLY Qty: 1 RF: 0 methadone 10 mg tablet 10 mg PO BID 30 Days Qty: 30 RF: 0 aspirin 81 mg Tablet,Delayed Release (Dr/Ec) 81 mg PO BID@0900,2100 RF: 0 bisacodyl [Dulcolax (bisacodyl)] 5 mg Tablet,Delayed Release (Dr/Ec) 15 mg PO BEDTIME@2100 RF: 0 naproxen 250 mg Tablet 250 mg PO PRN RF: 0 prochlorperazine maleate 10 mg tablet 10 mg PO BEDTIME@2100 RF: 0 amlodipine 10 mg tablet 10 mg PO DAILY@0900 RF: 0 montelukast 10 mg tablet 10 mg PO DAILY@0900 RF: 0 albuterol sulfate 2.5 mg /3 mL (0.083 %) solution for nebulization 2.5 mg inhalation Q4H PRN (Reason: shortness of breath or wheezing) Qty: 90 RF: 0 Discharge Orders: Discharge ED (Routine); Ordered 05/31/21 Ordered By: Juan A Gil Referrals: Donald Bolaños MD [Primary Care Provider] - Patient Instructions: Abdominal Pain (ED), Opioid Safety Coding Level of Care Code ED [facility] Fwd Exam Comprehensive
--- NOTE | 2021-05-31 19:43 | PC.NURSE ---
Assisted onto bedside toilet. Pt was able to ambulate with minimal assistance from bed to commode. Urine specimen sent to lab.
[2021-05-31 20:03] LABS: Alanine Aminotransferase 19 U/L (0-33); Albumin Level 4.2 g/dL (3.5-5.2); Alkaline Phosphatase 144 IU/L (35-105); Aspartate Amino Transferase 19 U/L (0-32); Blood Urea Nitrogen 18 mg/dL (8-23); Calcium 10.5 mg/dL (8.5-10.5); Carbon Dioxide 25 mmol/L (22-29); Chloride 102 mmol/L (98-107); Globulin 3.1 g/dL (1.3-4.6); Glomerular Filtration Rate 41.6 mL/min (90-130); Glucose 181 mg/dL (65-115); Lipase 20 U/L (13-60); Osmolality Calculated 292 mOsm/kg (285-295); Sodium 138 mmol/L (136-145); Total Bilirubin 0.3 mg/dL (0.15-1.2); Total Protein 7.3 g/dL (6.6-8.7)
[2021-05-31 20:23] LABS: Add Urine Microscopic? NO; Charge for UA Resulting for Rev
[2021-05-31 20:47] LABS: Bilirubin Urine Neg (Negative); Blood Urine Neg (Negative); Glucose Urine UA Norm (Normal); Ketones Urine Negative (Negative); Leukocyte Esterase Urine Negative (Negative); Nitrate Urine Negative (Negative); Protein Urine Neg (Negative); Urine Appearance Clear (CLEAR); Urine Color Straw (Yellow); Urobilinogen Urine Norm (Negative); pH Urine 7 (5-7)
[2021-05-31 21:13] VITALS: BP 154/82; PULSE 88; RESP 16; O2SAT 96
[2021-05-31 22:10] VITALS: BP 157/75; PULSE 67; RESP 20; O2SAT 96
== END 2021-05-31 22:12 | disposition home or self-care (01) ==
PROVIDERS: Emergency Provider Emergency Medicine; PCP Internal Medicine
DX: R10.84 Generalized abdominal pain (principal); Z79.82 Long term (current) use of aspirin; Z79.4 Long term (current) use of insulin; E13.22 Other specified diabetes mellitus with diabetic chronic kidney disease; I12.9 Hypertensive chronic kidney disease with stage 1 through stage 4 chronic kidney disease, or unspecified chronic kidney disease; N18.4 Chronic kidney disease, stage 4 (severe); J44.9 Chronic obstructive pulmonary disease, unspecified; E13.40 Other specified diabetes mellitus with diabetic neuropathy, unspecified; F17.210 Nicotine dependence, cigarettes, uncomplicated
CPT/HCPCS: 74176; 80053; 81003; 83690; 85025; 99283

== ENCOUNTER 2022-12-02 17:57 | Emergency (ER) | payer OTHER, MEDICARE, SELFPAY ==
[2022-12-02 18:04] VITALS: BP 168/55; PULSE 61; RESP 16; TEMP 36.6; O2SAT 96; BMI 48.4
--- NOTE | 2022-12-02 18:09 | XRR_ITS ---
PROCEDURE INFORMATION: Exam: XR Right Hip Exam date and time: 12/02/2022 6:20 PM Age: 62 years old Clinical indication: Injury or trauma; Fall; Blunt trauma (contusions or hematomas); Right; Hip; Additional info: Fall hip pain TECHNIQUE: Imaging protocol: Radiologic exam of the right hip. Views: 1 view hip with pelvis when performed. COMPARISON: CT abdomen pelvis wo con [id number] 05/31/2021 7:09 PM FINDINGS: Limitations: The images are under penetrated and grainy due to the patient's large body habitus. Bones/joints: Unremarkable. No acute fracture. Soft tissues: Unremarkable. XR/XR hip RT 2-3V wo/w pel* [id number] IMPRESSION: No acute findings.
--- NOTE | 2022-12-02 18:12 | ED_ITS ---
HPI - Fall General: Chief Complaint: Fall Stated Complaint: RIGHT HIP PAIN S/P FALL Time Seen by Provider: 12/02/22 18:04 History of Present Illness: Patient reports standing up from the toilet having a syncopal episode and falling on her right hip and shoulder. She denies any head pain or head trauma. Patient is not on any anticoagulation. Patient is alert oriented x4 with only complaints of minimal right shoulder pain and moderate right hip pain. Patient is currently on hospice for COPD MD complaint: fall Onset (ago): hour(s) Fall from: standing Place fall occurred: home Loss of consciousness: Yes Length of LOC: second(s) Symptoms prior to fall: none Context: other (Sounds like vagal when she got up from the toilet) Location of injury: other (Right hip and right shoulder) Severity: moderate Associated symptoms-after fall: Reports no associated symptoms; Denies abdominal pain, chest pain, headache(s) or neck pain Review of Systems General: Reports: 10 or more systems reviewed and unremarkable except in HPI and below Const: Denies: fever(s) or chills Eyes: Denies: change in vision or photophobia ENMT: Denies: throat pain or odynophagia Card: Denies: chest pain or palpitations Resp: Denies: dyspnea or productive cough GI: Denies: abdominal pain, nausea, vomiting or diarrhea : Denies: flank pain Musc: Denies: neck pain or back pain Skin/Breast: Denies: rash or pruritus Neuro: Denies: headache(s) or numbness in extremities Psych: Denies: anxiety or depression Endo: Denies: polyuria or polydipsia PFS ED PFSH: Medical History (Updated 12/02/22 @ 19:46 by Joni Hernandez DO) Acute and chronic respiratory failure with hypercapnia Bilateral lower leg cellulitis Cataract Cellulitis Chronic pain Chronic respiratory failure with hypoxia and hypercapnia CKD (chronic kidney disease) CKD stage 4 due to type 2 diabetes mellitus Community acquired pneumonia COPD (chronic obstructive pulmonary disease) COPD with acute exacerbation 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 Mother Cancer Other Diabetes Social History Smoking and tobacco status: former smoker Quit status (tobacco): considering quitting Second hand smoke exposure: Yes Alcohol intake: never Physical Exam Const: COMMON NORMALS: patient oriented x3, no limitations, alert and well nourished Eye: COMMON NORMALS: Equal, round and reactive pupils present, EOMs intact bilaterally, conjunctivae normal and no scleral icterus CONJUNCTIVA: Yes conjunctivae normal PUPIL: Yes Equal, round and reactive pupils present Neck/C-Spine: COMMON NORMALS: full ROM, no lymphadenopathy, supple, no meningeal signs, no JVD and Thyroid normal THYROID: Thyroid normal Chest: COMMONS NORMALS: normal inspection of the chest and normal palpation of entire chest wall Resp: COMMON NORMALS: normal respiratory effort, No retractions, No use of accessory muscles and clear to auscultation bilaterally AUSCULTATION: clear to auscultation bilaterally Cardio: COMMON NORMALS: no JVD, regular rate, regular rhythm, S1 normal heart sound present and S2 normal heart sound present RATE: regular rate RHYTHM: regular rhythm HEART SOUNDS: S1 normal heart sound present and S2 normal heart sound present GI: COMMON NORMALS: Soft to palpation, No hepatosplenomegaly present and no masses PALPATION: Yes Soft to palpation and Yes No hepatosplenomegaly present Extremity: NARRATIVE EXTREMITY EXAM: Minimal tenderness with the right shoulder region palpation, moderate to severe tenderness with right hip palpation. No obvious crepitus or deformity Neuro: COMMON NORMALS: patient oriented x3 SENSORIUM/ORIENTATION: Yes alert MENINGEAL SIGNS: Yes no meningeal signs Course Vital Signs: Vital signs: Vital Signs Temperature 97.9 F 12/02/22 18:04 Pulse Rate 58 L 12/02/22 18:38 Respiratory Rate 14 12/02/22 18:38 Blood Pressure 148/54 12/02/22 18:38 Pulse Oximetry 95 12/02/22 18:38 Oxygen Delivery Me thod 12/02/22 18:38 Oxygen Flow Rate 5 12/02/22 18:38 MDM - Fall Medical Decision Making Patient presents to the ER with complaints of a fall and right hip and right shoulder plain. Patient describes vasovagal laying after she stood up from the toilet and landed on her right shoulder and right arm hip. Right shoulder has minimal pain in the right hip has moderate pain. X-rays were taken of the right hip which showed no acute fracture. Patient will be discharged back home to follow-up with her PCP within 1 week. Differential Diagnosis Likely syncope; Unlikely dislocation of shoulder region, fracture of wrist, compression fracture, concussion with loss of consciousness or concussion without loss of consciousness Lab Data Radiology Impressions Hip/Pelvis X-Ray 12/02/22 18:09 IMPRESSION: No acute findings. Discharge Plan Discharge Patient Disposition: Home Clinical Impression: Fall, Acute pain of right hip Condition: Stable Prescriptions: No Action true metrix glucometer See Rx Instructions .ROUTE .COMPLEX Qty: 1 0RF Rx Instructions: Check blood glucose four times a day. (DME) blood sugar diagnostic Strip See Rx Instructions .ROUTE .MEDSUPPLY Qty: 100 11RF Rx Instructions: test 4 times daily (DME) miscellaneous medical supply [facility] See Rx Instructions .ROUTE .MEDSUPPLY Qty: 1 0RF Rx Instructions: commode-ex large alprazolam [Xanax] 0.25 mg tablet 0.25 mg PO DAILY PRN (Reason: Anxiety) Qty: 30 2RF (DME) OXYGEN MOUTH PIECE See Rx Instructions .Route .MEDSUPPLY Qty: 1 0RF Rx Instructions: TO USE WITH HER OXYGEN lactulose 10 gram/15 mL (15 mL) solution 15 ml PO DAILY PRN (Reason: constipation) Qty: 15 3RF (DME) Dexcom G6 [employer] Misc See Rx Instructions .ROUTE .MEDSUPPLY Qty: 1 0RF Rx Instructions: monitor to check blood sugar (DME) Dexcom G6 Sensor Device See Rx Instructions .ROUTE .MEDSUPPLY Qty: 3 3RF Rx Instructions: check blood sugar (DME) Dexcom G6 Transmitter Device See Rx Instructions .ROUTE .MEDSUPPLY Qty: 1 3RF Rx Instructions: check blood sugar (DME) oxygen See Rx Instructions .Route .MEDSUPPLY Qty: 1 0RF Rx Instructions: 3 liters continous, previously had an beatris- will need full set up Relistor 150 mg tablet See Rx Instructions .ROUTE .COMPLEX Qty: 90 0RF Dose Instruction: TAKE 1 TABLET IN THE MORNING Rx Instructions: TAKE 1 TABLET IN THE MORNING prochlorperazine maleate 10 mg tablet 10 mg PO BEDTIME@2100 Qty: 90 3RF nystatin 100,000 unit/gram powder 1 applic topical BID PRN (Reason: fungal rash) Qty: 60 0RF omeprazole 40 mg capsule,delayed release(DR/EC) See Rx Instructions .ROUTE .COMPLEX Qty: 180 3RF Dose Instruction: TAKE 1 CAPSULE TWICE DAILY AT 9:00AM AND 9:00PM Rx Instructions: TAKE 1 CAPSULE TWICE DAILY AT 9:00AM AND 9:00PM Relistor 150 mg tablet 150 mg PO QAM Qty: 90 1RF metolazone 5 mg tablet 5 mg PO DAILY 3 Days Qty: 3 0RF albuterol sulfate 2.5 mg /3 mL (0.083 %) solution for nebulization 2.5 mg inhalation Q4H PRN (Reason: shortness of breath or wheezing) Qty: 90 0RF Rx Instructions: use every 4 hours for the next 2 days, then as needed thereafter citalopram 40 mg tablet See Rx Instructions .ROUTE .COMPLEX Qty: 90 3RF Dose Instruction: TAKE 1 TABLET AT BEDTIME Rx Instructions: TAKE 1 TABLET AT BEDTIME potassium chloride [Klor-Con] 20 mEq packet 40 meq PO DAILY MDD TABLETS- NOT PACKETS Qty: 100 3RF Rx Instructions: 340 B oxycodone 10 mg tablet 10 mg PO Q6H PRN (Reason: pain) 30 Days Qty: 60 0RF levofloxacin 750 mg tablet 750 mg PO DAILY 10 Days Qty: 10 0RF bumetanide 2 mg tablet 2 mg PO DAILY@0900 Qty: 90 3RF albuterol sulfate [Ventolin HFA] 90 mcg/actuation HFA aerosol inhaler 2 puff INHALATION Q4H PRN (Reason: shortness of breath) Qty: 54 3RF amlodipine 10 mg tablet 10 mg PO DAILY@0900 Qty: 30 3RF methadone 10 mg tablet 10 mg PO BID 30 Days Qty: 60 0RF azithromycin [Zithromax] 500 mg tablet See Rx Instructions PO .COMPLEX Qty: 3 0RF Rx Instructions: For 500 mg dose pack: take 500 mg once daily for 3 days PO tizanidine 4 mg tablet See Rx Instructions .ROUTE .COMPLEX Qty: 360 0RF Dose Instruction: TAKE 1 TABLET EVERY 6 HOURS NEEDED FOR MUSCLE SPASTICITY Rx Instructions: TAKE 1 TABLET EVERY 6 HOURS NEEDED FOR MUSCLE SPASTICITY hydroxyzine HCl 25 mg tablet 25 mg PO QID Qty: 90 3RF topiramate [Topamax] 100 mg tablet 100 mg PO BID@0900,2099 Qty: 60 3RF simvastatin 20 mg tablet 20 mg PO BEDTIME@2099 Qty: 90 3RF levothyroxine 175 mcg tablet 175 mcg PO DAILY Qty: 90 3RF montelukast 10 mg tablet See Rx Instructions .ROUTE .COMPLEX Qty: 90 3RF Dose Instruction: TAKE 1 TABLET EVERY DAY Rx Instructions: TAKE 1 TABLET EVERY DAY dicyclomine 20 mg tablet See Rx Instructions .ROUTE .COMPLEX Qty: 90 3RF Dose Instruction: TAKE 1 TABLET BY MOUTH THREE TIMES DAILY NEEDED FOR ABDOMINAL PAIN Rx Instructions: TAKE 1 TABLET BY MOUTH THREE TIMES DAILY NEEDED FOR ABDOMINAL PAIN (DME) pen needle, diabetic [BD Ultra-Fine [place] Pen Needle] 32 gauge x 5/32 needle See Rx Instructions .ROUTE .COMPLEX Qty: 100 3RF Dose Instruction: USE DIRECTED Rx Instructions: USE DIRECTED Humulin R U-500 (Conc) Kwikpen 500 unit/mL (3 mL) insulin pen See Rx Instructions .ROUTE .COMPLEX Qty: 48 3RF Dose Instruction: INJECT 85 UNITS SUBCUTANEOUSLY WITH BREAKFAST, 90 UNITS WITH LUNCH, AND 60 UNITS WITH DINNER DIRECTED Rx Instructions: INJECT 90 UNITS SUBCUTANEOUSLY WITH BREAKFAST, 90 UNITS WITH LUNCH, AND 90 UNITS WITH DINNER DIRECTED (DME) True Metrix Glucose Test Strip Strip See Rx Instructions .ROUTE .COMPLEX Qty: 600 3RF Dose Instruction: TEST BLOOD SUGAR 6 TO 7 TIMES DAILY Rx Instructions: TEST BLOOD SUGAR 6 TO 7 TIMES DAILY aspirin 81 mg Tablet,Delayed Release (Dr/Ec) 81 mg PO BID@0900,2100 bisacodyl [Dulcolax (bisacodyl)] 5 mg Tablet,Delayed Release (Dr/Ec) 15 mg PO BEDTIME@2099 naproxen 250 mg Tablet 250 mg PO PRN Discharge Orders: Discharge ED (Routine); Ordered 12/02/22 Ordered By: Joni Hernandez Referrals: Donald Bolaños MD [Primary Care Provider] - 1 week Patient Instructions: Fall Prevention, Hip Pain (ED) Coding Level of Care Code ED Social Sciences Chair for [facility]
[2022-12-02 18:38] VITALS: BP 148/54; PULSE 58; RESP 14; O2SAT 95
[2022-12-02 19:49] VITALS: BP 159/66; PULSE 66; O2SAT 94
[2022-12-02 21:02] VITALS: BP 155/80; PULSE 62; RESP 20; O2SAT 95
== END 2022-12-02 20:45 | disposition home or self-care (01) ==
PROVIDERS: Emergency Provider Emergency Medicine; PCP Internal Medicine
DX: M25.551 Pain in right hip (principal); Z79.82 Long term (current) use of aspirin; Z79.4 Long term (current) use of insulin; Z87.891 Personal history of nicotine dependence; E11.22 Type 2 diabetes mellitus with diabetic chronic kidney disease; I12.9 Hypertensive chronic kidney disease with stage 1 through stage 4 chronic kidney disease, or unspecified chronic kidney disease; N18.4 Chronic kidney disease, stage 4 (severe); J44.9 Chronic obstructive pulmonary disease, unspecified; W18.30XA Fall on same level, unspecified, initial encounter
CPT/HCPCS: 73502; 99283